=== PATIENT | male | born 1935 | race Hispanic/Latino ===

== ENCOUNTER 2016-08-18 22:06 | Observation (INO) | payer MEDICARE, OTHER ==
[2016-08-18] MEDS ORDERED: Sodium Chloride 0.9% 1,000 ML IV STA (22:43)
[2016-08-18 23:24] LABS: BASO # 0.1 K/uL (0.0-0.2); EOS # 0.1 K/uL (0.0-0.7); EOS % 0.9 % (0.0-4.0); HEMOGLOBIN 9.4 g/dL (12.0-18.0); LYMPH # 1.6 K/uL (1.0-4.3); LYMPH % 17.9 % (20.0-40.0); MEAN CELL VOLUME 77.6 fl (80.0-94.0); MEAN PLATELET VOLUME 9.7 fl (7.2-11.7); MONO # 0.8 K/uL (0.0-0.8); MONO % 8.3 % (0.0-10.0); NEUT # 6.6 K/uL (1.8-7.0); NEUT % 71.9 % (50.0-75.0); RBC 3.91 Mil/uL (4.40-5.90); RED CELL DISTRIBUTION WIDTH 15.6 % (11.5-14.5); WHITE BLOOD COUNT 9.2 K/uL (4.8-10.8)
[2016-08-18 23:43] LABS: INR 1.3 (0.9-1.2); PARTIAL THROMBOPLASTIN TIME 24.8 Seconds (25.6-37.1); PROTHROMBIN TIME 15.2 Seconds (9.8-13.1)
--- NOTE | 2016-08-18 23:49 | ED PDOC ---
HPI: Abdomen Time Seen by Provider: 08/18/16 22:19 Chief Complaint (Nursing): GI Problem Chief Complaint (Provider): GI Problem History Per: Patient History/Exam Limitations: no limitations Onset/Duration Of Symptoms: Hrs (4:00PM) Outside of [place] travel?: No Current Symptoms Are (Timing): Still Present Severity: Moderate Pain Scale Rating Of: 7 Location Of Pain/Discomfort: RLQ Associated Symptoms: Nausea ((+)Mild Nausea), Diarrhea ((+)Watery Diarrhea). denies: Fever, Vomiting Last Bowel Movement: Today Additional Complaint(s): 80 y/o male patient presenting to the ED with abdominal pain. PT states that he has a colonoscopy scheduled with Dr. Nelson and had begun bowel prep today around 1600 and began having loose bowel movements with small amounts of blood present, as well as cramping and mild nausea. PT contacted Dr. Nelson who advised him to come to the ED. PT describes his pain as a 7/10, says its intermittent and states the cramping is worse on the right side. PT denies fever , vomiting, cough, or shortness of breath or chest pain. PT has a past medical history of CABG Surgery, a recent diagnosis of Sigmoid Mass, CAD and HTN. Past Medical History Reviewed: Historical Data, Nursing Documentation, Vital Signs Vital Signs: Last Vital Signs Temp 97.4 F L 08/19/16 00:40 Pulse 68 08/19/16 00:40 Resp 19 08/19/16 00:40 BP 160/73 H 08/19/16 00:40 Pulse Ox 98 08/19/16 01:53 - Medical History PMH: CAD, HTN - Surgical History Surgical History: CABG, Cholecystectomy - Family History Family History: States: No Known Family Hx - Social History Current smoker - smoking cessation education provided: No Alcohol: None Drugs: Denies - Home Medications Home Medications: Ambulatory Orders Medication Instructions Recorded Aspirin [Ecotrin] 81 mg PO DAILY 08/18/16 Meclizine [Antivert] 12.5 mg PO PRN PRN 08/18/16 Metoprolol Tartrate [Lopressor] 50 mg PO BID 08/18/16 Polyethylene Glycol 3350 [Miralax] 17 gm PO DAILY 08/18/16 - Allergies Allergies/Adverse Reactions: Allergies Allergy/AdvReac Type Severity Reaction Status Date / Time No Known Allergies Allergy Verified 08/18/16 22:21 Review of Systems ROS Statement: Except As Marked, All Systems Reviewed And Found Negative Cardiovascular: Negative for: Chest Pain, Palpitations Respiratory: Negative for: Cough, Shortness of Breath Gastrointestinal: Positive for: Nausea ((+)Mild), Abdominal Pain, Diarrhea ((+) Watery Diarrhea), Hematochezia. Negative for: Vomiting Physical Exam - Reviewed Nursing Documentation Reviewed: Yes Vital Signs Reviewed: Yes - Physical Exam Appears: Positive for: Non-toxic, No Acute Distress Skin: Positive for: Normal Color, Warm, Dry Cardiovascular/Chest: Positive for: Regular Rate, Rhythm. Negative for: Murmur Respiratory: Positive for: Normal Breath Sounds. Negative for: Respiratory Distress Gastrointestinal/Abdominal: Positive for: Normal Exam Neurologic/Psych: Positive for: Alert, Oriented. Negative for: Motor/Sensory Deficits - Laboratory Results Result Diagrams: 08/18/16 23:20 08/18/16 23:20 - ECG O2 Sat by Pulse Oximetry: 98 (RA) Pulse Ox Interpretation: Normal Medical Decision Making Medical Decision Making: Time: 2226 Initial impression: Bowel Prep AM Colonoscopy Abdominal pain condition is fair. Initial plan: --CMP --LIPASE --PHYSICIAN CONSULT ROUND --NPO DIET --EKG-ED --ABDOMEN W/CHEST X-RAY --MORPHINE --SODIUM CHLORIDE 1,000ML --ONDANSETRON --HEPLOCK INSERTION --NURSING COMMUNICATION --CALL PHYSICIAN CONSULT --ENEMA --VITAL SIGNS Q6 --ADMIT --PATIENT CONDITION --URINALYSIS Labs reviewed no clincally sig abnrmalities Abd Series with Chest Xray: [id number] Consult: --Case discussed with Dr. Nelson to be admitted for further enema bowel preps; Dr Nelson has made Dr Zamorano aware of admission. Dx Abdominal Pain Fair Scribe Attestation: Documented by Dafne Mojica, acting as a scribe for Santana Stout MD MD Scribe Attestation: All medical record entries made by the Scribe were at my direction and personally dictated by me. I have reviewed the chart and agree that the record accurately reflects my personal performance of the history, physical exam, medical decision making, and the department course for this patient. I have also personally directed, reviewed, and agree with the discharge instructions and disposition. Disposition - Clinical Impression Clinical Impression: Abdominal pain - Patient ED Disposition Is Patient to be Admitted: Yes Discussed With DrLorri: Minesh Nelson Counseled Patient/Family Regarding: Studies Performed, Diagnosis - Disposition Disposition Time: 22:30 Condition: FAIR - Pt Status Changed To: Hospital Disposition Of: Observation
[2016-08-19 00:07] LABS: ALB/GLOB RATIO 1.2 (1.0-2.1); ALBUMIN 4.3 g/dL (3.5-5.0); ALT/SGPT 48 U/L (21-72); AST/SGOT 39 U/L (17-59); BLOOD UREA NITROGEN 15 mg/dl (9-20); CALCIUM 9.4 mg/dL (8.4-10.2); GFR AFRICAN-AMERICAN > 60; GFR NON-AFRICAN AMERICAN > 60; LIPASE 63 U/L (23-300)
[2016-08-19] MEDS ORDERED: Morphine 4 MG/ML VIAL IVP ONE (01:30)
[2016-08-19] MEDS ORDERED: Morphine 4 MG/ML VIAL IVP PRN (07:06)
--- NOTE | 2016-08-19 08:23 | CP.PCM.HP ---
History of Present Illness - History of Present Illness History of Present Illness: 80 y/o w/m admitted with severe abdominal pains possible intestinal obstruction On CT Scan last week pt was found to have a Sigmoid lesion ? CA Colon pt was being prepped for Colonoscopy today when developed the pains / assoc with not passing stools or flatus Dr Nelson recommended admission to finish the colonic prep PMH: Hypertension CABG Aortic Valve replacement Anemia 2* to rectal bleeding COPD CLBBB EKG: CLBBB Present on Admission - Present on Admission Any Indicators Present on Admission: No Review of Systems - Gastrointestinal Gastrointestinal: Abdominal Pain, Change in Bowel Habits, Hematochezia Past Patient History - Past Medical History & Family History Past Medical History?: Yes - Past Social History Smoking Status: Never Smoked Alcohol: None Drugs: Denies - CARDIAC Hx Cardiac Disorders: Yes (Cabg /AVR) Hx Hypertension: Yes - MUSCULOSKELETAL/RHEUMATOLOGICAL Hx Falls: No - PSYCHIATRIC Hx Substance Use: No - SURGICAL HISTORY Hx Cholecystectomy: Yes Hx Coronary Artery Bypass Graft: Yes - ANESTHESIA Hx Anesthesia: Yes Hx Anesthesia Reactions: No Hx Malignant Hyperthermia: No Has any member of the family had a problem w/ anesthesia?: No Meds Allergies/Adverse Reactions: Allergies Allergy/AdvReac Type Severity Reaction Status Date / Time No Known Allergies Allergy Verified 08/18/16 22:21 Results - Vital Signs Recent Vital Signs: Last Vital Signs Temp 97.4 F L 08/19/16 00:40 Pulse 68 08/19/16 00:40 Resp 19 08/19/16 00:40 BP 160/73 H 08/19/16 00:40 Pulse Ox 98 08/19/16 01:53 - Labs Result Diagrams: 08/18/16 23:20 08/18/16 23:20 Labs: Laboratory Results - last 24 hr 08/18/16 08/18/16 08/18/16 22:48 23:20 23:20 WBC 9.2 RBC 3.91 L Hgb 9.4 L Hct 30.4 L MCV 77.6 L MCH 24.0 L MCHC 31.0 L RDW 15.6 H Plt Count 228 MPV 9.7 Neut % (Auto) 71.9 Lymph % (Auto) 17.9 L [place] % (Auto) 8.3 Eos % (Auto) 0.9 Baso % (Auto) 1.0 Neut # 6.6 Lymph # 1.6 [place] # 0.8 Eos # 0.1 Baso # 0.1 PT INR APTT Sodium 139 Potassium 4.0 Chloride 106 Carbon Dioxide 24 Anion Gap 14 BUN 15 Creatinine 0.9 Est GFR ( Amer) > 60 Est GFR (Non-Af Amer) > 60 Random Glucose 117 H Calcium 9.4 Total Bilirubin 1.5 H AST 39 ALT 48 Alkaline Phosphatase 83 Total Protein 7.8 Albumin 4.3 Globulin 3.5 Albumin/Globulin Ratio 1.2 Lipase 63 Blood Type O POSITIVE Antibody Screen Negative BBK History Checked No verified bt 08/18/16 23:20 WBC RBC Hgb Hct MCV MCH MCHC RDW Plt Count MPV Neut % (Auto) Lymph % (Auto) [place] % (Auto) Eos % (Auto) Baso % (Auto) Neut # Lymph # [place] # Eos # Baso # PT 15.2 H INR 1.3 H APTT 24.8 L Sodium Potassium Chloride Carbon Dioxide Anion Gap BUN Creatinine Est GFR ( Amer) Est GFR (Non-Af Amer) Random Glucose Calcium Total Bilirubin AST ALT Alkaline Phosphatase Total Protein Albumin Globulin Albumin/Globulin Ratio Lipase Blood Type Antibody Screen BBK History Checked Assessment & Plan (1) Mass of colon Assessment and Plan: r/o CA Pt will be going for a colonoscopy Status: Acute (2) Hx of CABG Status: Acute (3) S/P AVR (aortic valve replacement) Status: Acute (4) Essential (primary) hypertension Status: Acute (5) Abdominal pain Status: Acute
--- NOTE | 2016-08-19 08:57 | CARD ---
APPROVED REPORT EKG Measurement Heart [id number] <Conclusion> Wide QRS rhythm with occasional premature ventricular complexes Left bundle branch block Abnormal ECG
[2016-08-19] MEDS ORDERED: Lactated Ringer's 500 ML IV ONE (09:26)
[2016-08-19 09:29] VITALS: TEMP 96.3; O2SAT 100
[2016-08-19] MEDS ORDERED: Etomidate 20 mg/10ml Inj IV ONE (10:38)
[2016-08-19] MEDS ORDERED: Propofol 10 mg/ml Inj (20 ML) ONE (10:38)
--- NOTE | 2016-08-19 11:20 | CP.PCM.PN ---
Subjective - Date & Time of Evaluation Date of Evaluation: 08/19/16 Time of Evaluation: 11:19 - Subjective Subjective: A verbal report from Dr. Rollins Is that the patient does have a large mass in the sigmoid colon. This needs to be removed Objective - Vital Signs/Intake and Output Vital Signs (last 24 hours): Temp Pulse Resp BP Pulse Ox 96.3 F L 56 L 18 120/60 100 08/19/16 11:00 08/19/16 11:00 08/19/16 11:00 08/19/16 11:00 08/19/16 11:00 Intake and Output: 08/19/16 08/19/16 06:59 18:59 Intake Total 100 Balance 100 - Medications Medications: Current Medications Metoprolol Tartrate (Lopressor) 50 mg PO BID EMIR Morphine Sulfate (Morphine) 4 mg IVP Q4 PRN PRN Reason: Pain, moderate (4-7) - Labs Labs: 08/18/16 23:20 08/18/16 23:20 PT 15.2 Seconds (9.8-13.1) H 08/18/16 23:20 INR 1.3 (0.9-1.2) H 08/18/16 23:20 APTT 24.8 Seconds (25.6-37.1) L 08/18/16 23:20 Assessment and Plan (1) Mass of colon Status: Acute (2) Hx of CABG Status: Acute (3) S/P AVR (aortic valve replacement) Status: Acute (4) Essential (primary) hypertension Status: Acute (5) Abdominal pain Status: Acute
--- NOTE | 2016-08-19 11:21 | RAD ---
HISTORY: Abdominal pain COMPARISON: 08/02/2016 FINDINGS: The lungs are well inflated and clear. There is linear scarring in the left longer and a small left pleural effusion. The heart is normal in size. Status post median sternotomy. BOWEL: There is paucity of bowel gas and small air-fluid levels in the upper abdomen. There is no evidence of bowel dilatation or obstruction. BONES: Normal. OTHER FINDINGS: Surgical clips in the right upper quadrant are related to prior cholecystectomy. IMPRESSION: Small bowel air-fluid levels in the upper abdomen are nonspecific and could be related to nonspecific enteritis or ileus. No evidence of high-grade bowel obstruction. Small left pleural effusion.
[2016-08-19 11:27] VITALS: BP 125/67; PULSE 62; RESP 15
--- NOTE | 2016-08-19 12:15 | CP.PCM.DIS ---
Provider - Provider Date of Admission: 08/18/16 22:44 Attending physician: Delvin Zamorano MD Primary care physician: Shereen Zamorano Consults: Demarco Rollins Time Spent in preparation of Discharge (in minutes): 50 Diagnosis - Discharge Diagnosis (1) Mass of colon Status: Acute Comment: Colonoscopy done today reveals that the patient has a carcinoma of the sigmoid colon (2) Hx of CABG Status: Acute (3) S/P AVR (aortic valve replacement) Status: Acute (4) Essential (primary) hypertension Status: Acute (5) Abdominal pain Status: Acute Hospital Course - Lab Results Lab Results: Most Recent Lab Values WBC 9.2 K/uL (4.8-10.8) 08/18/16 23:20 RBC 3.91 Mil/uL (4.40-5.90) L 08/18/16 23:20 Hgb 9.4 g/dL (12.0-18.0) L 08/18/16 23:20 Hct 30.4 % (35.0-51.0) L 08/18/16 23:20 MCV 77.6 fl (80.0-94.0) L 08/18/16 23:20 MCH 24.0 pg (27.0-31.0) L 08/18/16 23:20 MCHC 31.0 g/dL (33.0-37.0) L 08/18/16 23:20 RDW 15.6 % (11.5-14.5) H 08/18/16 23:20 Plt Count 228 K/uL (130-400) 08/18/16 23:20 MPV 9.7 fl (7.2-11.7) 08/18/16 23:20 Neut % (Auto) 71.9 % (50.0-75.0) 08/18/16 23:20 Lymph % (Auto) 17.9 % (20.0-40.0) L 08/18/16 23:20 [place] % (Auto) 8.3 % (0.0-10.0) 08/18/16 23:20 Eos % (Auto) 0.9 % (0.0-4.0) 08/18/16 23:20 Baso % (Auto) 1.0 % (0.0-2.0) 08/18/16 23:20 Neut # 6.6 K/uL (1.8-7.0) 08/18/16 23:20 Lymph # 1.6 K/uL (1.0-4.3) 08/18/16 23:20 [place] # 0.8 K/uL (0.0-0.8) 08/18/16 23:20 Eos # 0.1 K/uL (0.0-0.7) 08/18/16 23:20 Baso # 0.1 K/uL (0.0-0.2) 08/18/16 23:20 PT 15.2 Seconds (9.8-13.1) H 08/18/16 23:20 INR 1.3 (0.9-1.2) H 08/18/16 23:20 APTT 24.8 Seconds (25.6-37.1) L 08/18/16 23:20 Sodium 139 mmol/l (132-148) 08/18/16 23:20 Potassium 4.0 MMOL/L (3.6-5.0) 08/18/16 23:20 Chloride 106 mmol/L (98-107) 08/18/16 23:20 Carbon Dioxide 24 mmol/L (22-30) 08/18/16 23:20 Anion Gap 14 (10-20) 08/18/16 23:20 BUN 15 mg/dl (9-20) 08/18/16 23:20 Creatinine 0.9 mg/dL (0.8-1.5) 08/18/16 23:20 Est GFR ( Amer) > 60 08/18/16 23:20 Est GFR (Non-Af Amer) > 60 08/18/16 23:20 Random Glucose 117 mg/dL (75-110) H 08/18/16 23:20 Calcium 9.4 mg/dL (8.4-10.2) 08/18/16 23:20 Total Bilirubin 1.5 mg/dl (0.2-1.3) H 08/18/16 23:20 AST 39 U/L (17-59) 08/18/16 23:20 ALT 48 U/L (21-72) 08/18/16 23:20 Alkaline Phosphatase 83 U/L (38-126) 08/18/16 23:20 Total Protein 7.8 G/DL (6.3-8.2) 08/18/16 23:20 Albumin 4.3 g/dL (3.5-5.0) 08/18/16 23:20 Globulin 3.5 gm/dL (2.2-3.9) 08/18/16 23:20 Albumin/Globulin Ratio 1.2 (1.0-2.1) 08/18/16 23:20 Lipase 63 U/L (23-300) 08/18/16 23:20 Blood Type O POSITIVE 08/18/16 22:48 Antibody Screen Negative 08/18/16 22:48 BBK History Checked No verified bt 08/18/16 22:48 - Hospital Course Hospital Course: This is a patient on CAT scan was found to have a lesion in the sigmoid colon. He had been having bloody stools for months. His hemoglobin had dropped several points Gross of this he was said he was scheduled for a colonoscopy today Monday Yesterday upon doing the prep the patient had severe abdominal pains and was not having a bowel movement because of the fear of obstruction the patient was admitted to finish the prep for colonoscopy today The patient did have endoscopy today and it revealed a large sigmoid mass that is cancerous He is being discharged today to follow up with me and with Dr. Josef Moran to set a date for surgery - Date & Time of H&P Date of H&P: 08/19/16 Time of H&P: 12:13 Discharge Plan - Follow Up Plan Condition: GOOD Instructions: Colonoscopy (DC), Acute Abdominal Pain (DC) Referrals: Minesh Nelson MD, PhD [Staff Provider] -
--- NOTE | 2016-08-20 03:28 | CON ---
REASON FOR CONSULTATION: Rectal bleeding and abdominal pain. HISTORY OF PRESENT ILLNESS: This is an 80-year-old man who was scheduled to have a colonoscopy for a fat mass on CT, was being prepped last night and had abdominal distention and discomfort. No passage of flatus or bowel movements and admitted to the hospital for abdominal pain workup and rule out perforation. The patient actually seemed better, had some bowel movements overnight, still distended and tender, but not tense. Currently, lying in bed, in no apparent distress. PAST MEDICAL HISTORY: Includes hypertension, CABG, aortic valve replacement, and anemia. PAST SURGICAL HISTORY: Noncontributory. FAMILY HISTORY: Noncontributory. REVIEW OF SYSTEMS: All systems have been reviewed and no other positive except in the HPI. PHYSICAL EXAMINATION GENERAL: A pleasant, elderly appearing man, lying in bed comfortably, in no apparent distress. VITAL SIGNS: During the hospital grossly unremarkable. HEENT: Head, normocephalic, atraumatic. Eyes, pupils are equal and reactive to light. No conjunctival pallor or icterus. NECK: Supple. Normal range of motion. No lymphadenopathy appreciated. LUNGS: Coarse breath sounds bilaterally. HEART: S1, S2, regular rate and rhythm. No *------*. ABDOMEN: Soft, nontender, some discomfort. No rebound, no guarding. RECTAL: Deferred. EXTREMITIES: Shows *------* x3. LABORATORY DATA: Reviewed. WBC 9.3, hemoglobin 9.4, hematocrit of 38.4. INR 1.3. X-rays are grossly unremarkable. ASSESSMENT AND PLAN: This is an 80-year-old man with a mass in the sigmoid. Plan for colonoscopy in the morning. Thank you for the consult. Minesh Nelson MD/ PhD cc: *------*
== END 2016-08-19 13:21 | disposition home or self-care (01) ==
LOC: H.ER 22:06 → H.ERHOLD 22:44 → H.MEDSURG1 08-19 00:41
PROVIDERS: ADMIT Internal Medicine Cardiovascular Disease; ATTEND Internal Medicine Cardiovascular Disease
DX: C18.7 Malignant neoplasm of sigmoid colon (principal); K63.5 Polyp of colon; I10 Essential (primary) hypertension; I25.10 Atherosclerotic heart disease of native coronary artery without angina pectoris; Z95.1 Presence of aortocoronary bypass graft; Z95.2 Presence of prosthetic heart valve; J44.9 Chronic obstructive pulmonary disease, unspecified; K62.5 Hemorrhage of anus and rectum; K64.8 Other hemorrhoids; K64.4 Residual hemorrhoidal skin tags
CPT/HCPCS: 45331; 74022; 80053; 83690; 85025; 85610; 85730; 86850; 86900; 88305; 93005; 96374; 99285; G0378; J2001; J2270; J2405; J2704; J7040; J7120

== ENCOUNTER 2016-08-23 15:33 | Inpatient (IN) | payer MEDICARE, OTHER ==
[2016-08-23] MEDS ORDERED: Sodium Chloride 0.9% 1,000 ML IV STA (16:02)
--- NOTE | 2016-08-23 16:05 | ED PDOC ---
HPI: Abdomen Time Seen by Provider: 08/23/16 15:55 Chief Complaint (Nursing): Abdominal Pain Chief Complaint (Provider): Abd pain History Per: Patient History/Exam Limitations: no limitations Onset/Duration Of Symptoms: Days (Yester) Additional Complaint(s): Abd pain across lower. Dx with mass on colon recently. Here as pain still present, but comfortable in bed. No nausea, vomit, diarrhea, weakness, headaches. Had small bm today. No fever. Seen by surgeon and sent to the ED. Past Medical History Reviewed: Nursing Documentation, Vital Signs Vital Signs: Last Vital Signs Temp 98.0 F 08/23/16 15:42 Pulse 52 L 08/23/16 15:42 Resp 18 08/23/16 15:42 BP 124/61 08/23/16 15:42 Pulse Ox 99 08/23/16 16:46 - Medical History PMH: CAD, HTN Other PMH: colon ca - Surgical History Surgical History: CABG, Cholecystectomy - Family History Family History: States: Unknown Family Hx - Living Arrangements Living Arrangements: With Family - Social History Alcohol: None Drugs: Denies - Home Medications Home Medications: Ambulatory Orders Medication Instructions Recorded Aspirin [Ecotrin] 81 mg PO DAILY 08/18/16 Meclizine [Antivert] 12.5 mg PO Q8H PRN 08/18/16 Metoprolol Tartrate [Lopressor] 50 mg PO BID 08/18/16 Polyethylene Glycol 3350 [Miralax] 17 gm PO DAILY 08/18/16 - Allergies Allergies/Adverse Reactions: Allergies Allergy/AdvReac Type Severity Reaction Status Date / Time No Known Allergies Allergy Verified 08/18/16 22:21 Review of Systems ROS Statement: Except As Marked, All Systems Reviewed And Found Negative Gastrointestinal: Positive for: Abdominal Pain Physical Exam - Reviewed Nursing Documentation Reviewed: Yes Vital Signs Reviewed: Yes - Physical Exam Appears: Positive for: Non-toxic, No Acute Distress Head Exam: Positive for: ATRAUMATIC, NORMAL INSPECTION, NORMOCEPHALIC Skin: Positive for: Normal Color, Warm, DRY Eye Exam: Positive for: EOMI, Normal appearance, PERRL ENT: Positive for: Normal ENT Inspection Neck: Positive for: Normal, Painless ROM Cardiovascular/Chest: Positive for: Regular Rate, Rhythm Respiratory: Positive for: CNT, Normal Breath Sounds Gastrointestinal/Abdominal: Positive for: Bowel Sounds, Soft, Tenderness (mild across lower) Back: Positive for: Normal Inspection. Negative for: L CVA Tenderness, R CVA Tenderness Extremity: Positive for: Normal ROM. Negative for: Tenderness, Pedal Edema Neurologic/Psych: Positive for: Alert, Oriented - Laboratory Results Result Diagrams: 08/23/16 16:10 - ECG ECG: Positive for: Interpreted By Me, Viewed By Me ECG Rhythm: Positive for: Left Bundle Branch Block Interpretation Of Abn EKG: same as old O2 Sat by Pulse Oximetry: 99 Pulse Ox Interpretation: Normal - Progress ED Course And Treament: 1650: Stable. AAOx3. Pain free. Dr. Arcos spoken to and will admit. Will give further orders when pt. reaches floor. Disposition - Clinical Impression Clinical Impression: Abdominal pain, Colonic mass - Patient ED Disposition Is Patient to be Admitted: Yes Counseled Patient/Family Regarding: Studies Performed, Diagnosis - Disposition Disposition Time: 16:48 Condition: FAIR - Pt Status Changed To: Hospital Disposition Of: Inpatient - Admit Certification Admit to Inpatient:: After my assessment, the patient will require hospitalization for at least two midnights. This is because of the severity of symptoms shown, intensity of services needed, and/or the medical risk in this patient being treated as an outpatient. - POA Present On Arrival: None
[2016-08-23 16:38] LABS: BASO % 0.8 % (0.0-2.0); EOS % 0.7 % (0.0-4.0); HEMOGLOBIN 8.9 g/dL (12.0-18.0); LYMPH # 1.8 K/uL (1.0-4.3); LYMPH % 27.5 % (20.0-40.0); MEAN CORPUSCULAR HEMOGLOBIN 23.7 pg (27.0-31.0); MEAN CORPUSCULAR HGB CONC 31.2 g/dL (33.0-37.0); MEAN PLATELET VOLUME 9.8 fl (7.2-11.7); MONO # 0.6 K/uL (0.0-0.8); MONO % 9.7 % (0.0-10.0); NEUT % 61.3 % (50.0-75.0); NRBC % 0.1 % (0.0-0.0); RBC 3.75 Mil/uL (4.40-5.90); RED CELL DISTRIBUTION WIDTH 16.1 % (11.5-14.5); WHITE BLOOD COUNT 6.5 K/uL (4.8-10.8)
[2016-08-23 16:53] LABS: ALB/GLOB RATIO 1.2 (1.0-2.1); ALBUMIN 4.1 g/dL (3.5-5.0); ALT/SGPT 42 U/L (21-72); AST/SGOT 38 U/L (17-59); BLOOD UREA NITROGEN 15 mg/dl (9-20); CALCIUM 9.4 mg/dL (8.4-10.2); GFR AFRICAN-AMERICAN > 60; GFR NON-AFRICAN AMERICAN > 60
[2016-08-23 17:02] LABS: INR 1.3 (0.9-1.2); PROTHROMBIN TIME 15.2 Seconds (9.8-13.1)
--- NOTE | 2016-08-23 17:20 | RAD ---
HISTORY: Abdominal pain COMPARISON: 08/18/2016. FINDINGS: LUNGS: There is linear scarring in the left lower lobe. No focal consolidation. PLEURA: Left pleural thickening. No significant right pleural effusion identified, no pneumothorax apparent. CARDIOVASCULAR: There is mild cardiomegaly. Status post CABG. OSSEOUS STRUCTURES: No significant abnormalities. VISUALIZED UPPER ABDOMEN: Normal. OTHER FINDINGS: None. IMPRESSION: Left basilar scarring and left pleural thickening. No acute findings.
[2016-08-23] MEDS ORDERED: Dextrose 5%/0.45% NS 1,000 ML IV SCH (21:30)
--- NOTE | 2016-08-23 21:39 | CP.PCM.HP ---
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 Anemia 2* to rectal bleeding COPD CLBBB Laminectomy L5 04/06/06 Present on Admission - Present on Admission Any Indicators Present on Admission: No Review of Systems - Constitutional Constitutional: As Per HPI - Cardiovascular Cardiovascular: As Per HPI - Respiratory Respiratory: As Per HPI - Gastrointestinal Gastrointestinal: Abdominal Pain, Hematochezia Past Patient History - Past Medical History & Family History Past Medical History?: Yes - Past Social History Smoking Status: Never Smoked Alcohol: None Drugs: Denies - CARDIAC Hx Cardiac Disorders: Yes Hx Hypertension: Yes Other/Comment: CABG w/ AVR - PULMONARY Hx Chronic Obstructive Pulmonary Disease (COPD): Yes - MUSCULOSKELETAL/RHEUMATOLOGICAL Hx Falls: No - PSYCHIATRIC Hx Substance Use: No - SURGICAL HISTORY Hx Cholecystectomy: Yes Hx Coronary Artery Bypass Graft: Yes - ANESTHESIA Hx Anesthesia: Yes Hx Anesthesia Reactions: No Hx Malignant Hyperthermia: No Meds Allergies/Adverse Reactions: Allergies Allergy/AdvReac Type Severity Reaction Status Date / Time No Known Allergies Allergy Verified 08/18/16 22:21 Physical Exam - Constitutional Appears: Well - Head Exam Head Exam: NORMAL INSPECTION - Eye Exam Eye Exam: Normal appearance - ENT Exam ENT Exam: Normal Exam - Neck Exam Neck exam: Positive for: Normal Inspection - Respiratory Exam Respiratory Exam: NORMAL BREATHING PATTERN - Cardiovascular Exam Cardiovascular Exam: REGULAR RHYTHM - GI/Abdominal Exam GI & Abdominal Exam: Normal Bowel Sounds Results - Vital Signs Recent Vital Signs: Last Vital Signs Temp 97.8 F 08/23/16 20:38 Pulse 65 08/23/16 20:38 Resp 18 08/23/16 20:38 BP 133/67 08/23/16 20:38 Pulse Ox 100 08/23/16 20:38 - Labs Result Diagrams: 08/23/16 16:10 08/23/16 16:10 Labs: Laboratory Results - last 24 hr 08/23/16 17:30 Troponin I [id number] Assessment & Plan (1) Carcinoma of sigmoid colon Assessment and Plan: The patient is scheduled for surgery in the AM Cardiac camacho he is cleared for surgery Status: Acute (2) Essential (primary) hypertension Status: Acute (3) Hx of CABG Assessment and Plan: 07/23/2009 Status: Acute (4) S/P AVR (aortic valve replacement) 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
--- NOTE | 2016-08-23 23:04 | CP.PCM.CON ---
History of Present Illness - History of Present Illness History of Present Illness: Surgery Consult note. Dr. Moran CC: Abd Pain 80yo M with PMHx of HTN, Anemia, COPD here for evaluation of abdominal pain. Patient states that he was evaluated recently for similar complaints. Pain is located in the left lower abdomen and radiates to the right lower abdomen. Describes pain as sharp in quality. Denies any association with food intake. He states that he has had bloody bowel movements for about 4 months and these have since resolved for the past week. He states that over the course of the past month, he has noted changes in the caliber of his stool, he describes his stool as small pieces, rope-like in appearance, denies any bloody or dark BMs for the past week. Denies any Fevers or chills. Does state that he has had a 5lb weight loss over the past month and decreased appetite. No N/V/D. No headaches. No CP/ SOB. Also c/o difficulty urinating. Patient had a CT scan on 08/12 which showed 5cm mural thickening and luminal narrowing at the sigmoid colon. Of note, Dr. Nelson performed a colonoscopy on 08/19 which showed a 5cm partially obstructing mass in the sigmoid colon, biopsies were taken (High grade dysplasia on pathology). 5mm polyp was also seen and resected at the recto -sigmoid region (serrated adenoma on pathology). Scope was unable to be passed past the sigmoid mass. PMHx: HTN, Anemia, COPD PSHx: CABG 2009, Aortic Valve Replacement 2009, Cholecystectomy 1983, L5 Laminectomy 2006 Social Hx: Denies Tob, Denies ETOH, Denies illicit drugs NKDA Review of Systems - Review of Systems All systems: reviewed and no additional remarkable complaints except - Constitutional Constitutional: Weight Loss. absent: Chills, Fever - EENT Ears: absent: Dizziness - Cardiovascular Cardiovascular: absent: Chest Pain, Dyspnea - Respiratory Respiratory: absent: Dyspnea - Gastrointestinal Gastrointestinal: Abdominal Pain, Change in Bowel Habits, Change in Stool Character. absent: Diarrhea, Hematemesis, Hematochezia, Melena, Nausea, Vomiting - Genitourinary Genitourinary: Difficulty Urinating. absent: Dysuria - Musculoskeletal Musculoskeletal: absent: Back Pain - Neurological Neurological: absent: Dizziness, Focal Weakness Past Patient History - Past Medical History & Family History Past Medical History?: Yes Past Family History: Reviewed and not pertinent - Past Social History Smoking Status: Never Smoked Alcohol: None Drugs: Denies - CARDIAC Hx Cardiac Disorders: Yes Hx Hypertension: Yes Other/Comment: CABG w/ AVR - PULMONARY Hx Chronic Obstructive Pulmonary Disease (COPD): Yes - MUSCULOSKELETAL/RHEUMATOLOGICAL Hx Falls: No - PSYCHIATRIC Hx Substance Use: No - SURGICAL HISTORY Hx Cholecystectomy: Yes Hx Coronary Artery Bypass Graft: Yes - ANESTHESIA Hx Anesthesia: Yes Hx Anesthesia Reactions: No Hx Malignant Hyperthermia: No Meds Allergies/Adverse Reactions: Allergies Allergy/AdvReac Type Severity Reaction Status Date / Time No Known Allergies Allergy Verified 08/18/16 22:21 - Medications Medications: Current Medications Dextrose/Sodium Chloride (Dextrose 5%/0.45% Ns 1000 Ml) 1,000 mls @ 40 mls/hr IV .Q24H [facility] Stop: 08/24/16 21:24 Metoprolol Tartrate (Lopressor) 50 mg PO BID [facility] Morphine Sulfate (Morphine) 4 mg IVP Q4 PRN PRN Reason: Pain, severe (8-10) Physical Exam - Constitutional Appears: Well, No Acute Distress - Head Exam Head Exam: ATRAUMATIC, NORMAL INSPECTION, NORMOCEPHALIC - Eye Exam Eye Exam: EOMI - ENT Exam ENT Exam: Mucous Membranes Moist - Respiratory Exam Respiratory Exam: NORMAL BREATHING PATTERN - Cardiovascular Exam Cardiovascular Exam: absent: JVD - GI/Abdominal Exam GI & Abdominal Exam: Hernia (Reducible umbilical hernia present, non-tender), Soft. absent: Distended, Firm, Guarding, Rebound, Rigid Additional comments: Tender to deep palpation at the left lower quadrant. Non distended. no guarding. Reducible umbilical hernia present. - Extremities Exam Extremities exam: Positive for: normal inspection. Negative for: calf tenderness, pedal edema - Back Exam Back exam: NORMAL INSPECTION - Neurological Exam Neurological exam: Alert, Oriented x3 - Psychiatric Exam Psychiatric exam: Normal Affect, Normal Mood - Skin Skin Exam: Dry, Intact, Normal Color, Warm Results - Vital Signs Recent Vital Signs: Last Vital Signs Temp 97.8 F 08/23/16 20:38 Pulse 65 08/23/16 20:38 Resp 18 08/23/16 20:38 BP 133/67 08/23/16 20:38 Pulse Ox 100 08/23/16 20:38 - Labs Result Diagrams: 08/23/16 16:10 08/23/16 16:10 Labs: Laboratory Results - last 24 hr 08/23/16 17:30 Troponin I 0.0160 Assessment & Plan - Assessment and Plan (Free Text) Assessment: 80yo M with PMHx of HTN, Anemia, COPD here with sigmoid mass - To OR on Monday, 08/24 - Consent obtained on chart - NPO past midnight - Continue pain management - f/u AM labs Further recs as per Dr. Dean Bullard PGY1
[2016-08-24] MEDS ORDERED: Propofol 10 mg/ml Inj (20 ML) ONE (07:27)
[2016-08-24] MEDS ORDERED: ePHEDrine 50 mg/ml Inj ONE ×2 (07:28→09:05)
[2016-08-24] MEDS ORDERED: Succinylcholine 200 mg/10 ml Inj IV ONE (07:28)
[2016-08-24] MEDS ORDERED: Rocuronium 10 mg/ml (5 ml) ONE ×2 (07:28→10:07)
[2016-08-24] MEDS ORDERED: Midazolam 2 MG/2 ML VIAL ONE (07:28)
[2016-08-24] MEDS ORDERED: Bupivacaine 0.5% Inj(30mL) ONE (07:35)
[2016-08-24] MEDS ORDERED: metroNIDAZOLE 500mg/100ml NS 100 ML IVPB ONE (07:35)
[2016-08-24 07:37] LABS: BASO % 0.8 % (0.0-2.0); EOS # 0.1 K/uL (0.0-0.7); EOS % 1.5 % (0.0-4.0); HEMOGLOBIN 8.4 g/dL (12.0-18.0); LYMPH # 1.7 K/uL (1.0-4.3); LYMPH % 29.8 % (20.0-40.0); MEAN CELL VOLUME 76.1 fl (80.0-94.0); MEAN CORPUSCULAR HEMOGLOBIN 24.2 pg (27.0-31.0); MEAN CORPUSCULAR HGB CONC 31.8 g/dL (33.0-37.0); MEAN PLATELET VOLUME 9.9 fl (7.2-11.7); MONO # 0.6 K/uL (0.0-0.8); MONO % 11.3 % (0.0-10.0); NEUT # 3.2 K/uL (1.8-7.0); NEUT % 56.6 % (50.0-75.0); RBC 3.49 Mil/uL (4.40-5.90); RED CELL DISTRIBUTION WIDTH 15.7 % (11.5-14.5); WHITE BLOOD COUNT 5.7 K/uL (4.8-10.8)
[2016-08-24 07:46] LABS: ALB/GLOB RATIO 1.2 (1.0-2.1); ALBUMIN 3.6 g/dL (3.5-5.0); ALT/SGPT 43 U/L (21-72); AST/SGOT 32 U/L (17-59); BLOOD UREA NITROGEN 11 mg/dl (9-20); CALCIUM 9.1 mg/dL (8.4-10.2); GFR AFRICAN-AMERICAN > 60; GFR NON-AFRICAN AMERICAN > 60
--- NOTE | 2016-08-24 08:16 | PQF ANEMIA ---
This form is a permanent part of the medical record 08/24/16 Dr. Zamorano, Please clarify the type of anemia. Admitted with obstructing lesion at sigmoid colon. Patient has had months of rectal bleeding. Hgb dropped from 14 to 9. H&H on admission: 8.9 and 28.5 Clarification of your documentation is requested to better reflect the severity of illness and intensity of treatment of your patient. Indicators present [x] Anemia [x] Drop in H&H from []___ to []___ [] Hypotension [x] GI Bleed [] Transfusion(s) [] Acute bleed other sites [] Tachycardia [] Surgical Procedure Blood Loss (expected not a complication) Other:[] Location in the medical record that reflects the above clinical findings: [] Treatment Provided: [] PHYSICIAN'S RESPONSE Based on your medical judgment of the clinical indicators outlined above, are you treating this patient for a known or suspected: [x Acute blood loss anemia [] Chronic blood loss anemia [] Acute on Chronic blood loss anemia [] Anemia due to malignancy [] Anemia due to chemotherapy or radiation therapy [] Anemia of Chronic Disease, please specify: [] [] Other, please indicate type of anemia []____ [] If Unable to Determine, please check the box, sign and date. Present On Admission (POA) Indicator: [x] Present at the time of admission [] Not present at the time of admission [] Clinically Undetermined In responding to this query, please exercise your independent professional judgment. The fact that a question is asked does not imply that any particular answer is desired or expected. Thank you for your clarification on this documentation. If you have any questions please call:ext [phone] * Thank you, Shahida Jimenez RN CDMP [facility]
[2016-08-24] MEDS ORDERED: Etomidate 20 mg/10ml Inj IV ONE (08:39)
[2016-08-24] MEDS ORDERED: Lactated Ringer's 1,000 ML IV ONE ×2 (08:40→10:46)
[2016-08-24] MEDS ORDERED: metroNIDAZOLE 500mg/100ml NS IVPB ONE (08:50)
[2016-08-24] MEDS ORDERED: Methylene Blue 10 mg/ml (1ml) Inj IV ONE (09:25)
[2016-08-24] MEDS ORDERED: Dexamethasone 4 mg/1 ml ONE (09:44)
[2016-08-24] MEDS ORDERED: Neostigmine Methylsulfate 3mg/3ml Syringe IV ONE (10:38)
[2016-08-24] MEDS ORDERED: Liquid Adhesive TOP ONE (10:49)
--- NOTE | 2016-08-24 11:02 | CP.PCM.PN ---
Subjective - Date & Time of Evaluation Date of Evaluation: 08/24/16 Time of Evaluation: 11:00 - Subjective Subjective: s/p laparotomy with resection of sigmoid colon transverse colostomy doing well Objective - Vital Signs/Intake and Output Vital Signs (last 24 hours): Temp Pulse Resp BP Pulse Ox 97.8 F 50 L 20 164/73 H 98 08/24/16 08:10 08/24/16 08:17 08/24/16 08:10 08/24/16 08:17 08/24/16 08:10 Intake and Output: 08/24/16 08/24/16 06:59 18:59 Intake Total 1425 Output Total 275 Balance 1150 - Medications Medications: Current Medications Dextrose/Sodium Chloride (Dextrose 5%/0.45% Ns 1000 Ml) 1,000 mls @ 40 mls/hr IV .Q24H [facility] Stop: 08/24/16 21:24 Last Admin: 08/24/16 00:46 Dose: 40 mls/hr Metoprolol Tartrate (Lopressor) 50 mg PO BID [facility] Last Admin: 08/24/16 08:17 Dose: Not Given Morphine Sulfate (Morphine) 4 mg IVP Q4 PRN PRN Reason: Pain, severe (8-10) - Labs Labs: 08/24/16 05:45 08/24/16 05:45 PT 15.2 Seconds (9.8-13.1) H 08/23/16 16:10 INR 1.3 (0.9-1.2) H 08/23/16 16:10 APTT 24.0 Seconds (25.6-37.1) L 08/23/16 16:10 Assessment and Plan (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
--- NOTE | 2016-08-24 11:03 | PCM.SURG1 ---
Surgeon's Initial Post Op Note - Surgeon's Notes Surgeon: Franca Associate Account Manager: angelica gómez zemaitis Anesthesia Administered By: ashlyn Pre-Operative Diagnosis: colonic obstruction Operative Findings: distal sigmoid mass Post-Operative Diagnosis: pending path Operation Performed: distal sigmoid resection transverse colostomy Specimen/Specimens Removed: sigmoid Estimated Blood Loss: EBL {In ML}: 200 Blood Products Given: PRBC (1unit) Drains Used: No Drains Post-Op Condition: Good Date of Surgery/Procedure: 08/24/16 Time of Surgery/Procedure: 09:00
[2016-08-24] MEDS ORDERED: Dextrose 5%/0.45% NS 1,000 ML IV SCH (11:09)
[2016-08-24] MEDS ORDERED: Naloxone 0.4 mg/ml Inj (Adult) IVP PRN (11:33)
[2016-08-24] MEDS ORDERED: DiphenhydrAMINE 50 mg/ml Inj IVP PRN (11:33)
[2016-08-24] MEDS ORDERED: Sodium Chloride 0.9% 250 ML IV ONE (11:58)
--- NOTE | 2016-08-24 12:40 | CARD ---
APPROVED REPORT EKG Measurement Heart [id number] <Conclusion> Sinus bradycardia with occasional premature ventricular complexes Left bundle branch block Abnormal ECG
[2016-08-24] MEDS: HYDROmorphone 0.5 mg/0.5 ml ISec IVP PRN ×2 (14:25→14:35)
[2016-08-24] MEDS: metroNIDAZOLE 500mg/100ml NS 100 ML IVPB SCH (16:54)
[2016-08-24 19:28] LABS: BASO # 0.1 K/uL (0.0-0.2); BASO % 0.7 % (0.0-2.0); EOS # 0.2 K/uL (0.0-0.7); HEMOGLOBIN 11.1 g/dL (12.0-18.0); LYMPH # 0.8 K/uL (1.0-4.3); LYMPH % 4.3 % (20.0-40.0); MEAN CELL VOLUME 78.3 fl (80.0-94.0); MEAN CORPUSCULAR HEMOGLOBIN 24.9 pg (27.0-31.0); MEAN CORPUSCULAR HGB CONC 31.8 g/dL (33.0-37.0); MEAN PLATELET VOLUME 10.5 fl (7.2-11.7); MONO # 0.7 K/uL (0.0-0.8); MONO % 3.8 % (0.0-10.0); NEUT # 16.8 K/uL (1.8-7.0); NEUT % 90.2 % (50.0-75.0); NRBC % 0.3 % (0.0-0.0); PLATELET COUNT 215 K/uL (130-400); RBC 4.48 Mil/uL (4.40-5.90); RED CELL DISTRIBUTION WIDTH 16.6 % (11.5-14.5); WHITE BLOOD COUNT 18.6 K/uL (4.8-10.8)
[2016-08-24] MEDS: Lactated Ringer's 1,000 ML IV SCH (20:44)
[2016-08-24] MEDS: ceFAZolin 1 GM in Sodium Chloride 0.9% 100 ML IVPB SCH (21:21)
[2016-08-24 21:51] LABS: BANDS 2 % (0-2); EOSINOPHIL 1 % (0-7); LYMPHOCYTE 6 % (20-50); MONOCYTE 4 % (0-10); NEUTROPHIL 87 % (42-75); PLATELET ESTIMATE NORMAL (NORMAL); TOTAL CELLS COUNTED 100
[2016-08-24 21:52] LABS: ANISOCYTOSIS SLIGHT; HYPOCHROMIC SLIGHT
[2016-08-25] MEDS: metroNIDAZOLE 500mg/100ml NS 100 ML IVPB SCH ×2 (01:45→08:50)
[2016-08-25] MEDS: Lactated Ringer's 1,000 ML IV SCH ×2 (01:49→17:17)
[2016-08-25 07:35] LABS: BASO % 0.2 % (0.0-2.0); HEMOGLOBIN 10.8 g/dL (12.0-18.0); LYMPH # 1.5 K/uL (1.0-4.3); MEAN CELL VOLUME 78.5 fl (80.0-94.0); MEAN CORPUSCULAR HEMOGLOBIN 24.7 pg (27.0-31.0); MEAN CORPUSCULAR HGB CONC 31.5 g/dL (33.0-37.0); MEAN PLATELET VOLUME 10.2 fl (7.2-11.7); MONO # 1.2 K/uL (0.0-0.8); MONO % 7.2 % (0.0-10.0); NEUT % 83.6 % (50.0-75.0); RBC 4.37 Mil/uL (4.40-5.90); RED CELL DISTRIBUTION WIDTH 16.2 % (11.5-14.5); WHITE BLOOD COUNT 16.7 K/uL (4.8-10.8)
[2016-08-25 07:42] LABS: ALB/GLOB RATIO 1.3 (1.0-2.1); ALBUMIN 3.6 g/dL (3.5-5.0); ALT/SGPT 39 U/L (21-72); AST/SGOT 26 U/L (17-59); BLOOD UREA NITROGEN 12 mg/dl (9-20); CALCIUM 8.9 mg/dL (8.4-10.2); GFR AFRICAN-AMERICAN > 60; GFR NON-AFRICAN AMERICAN > 60
[2016-08-25] MEDS: ceFAZolin 1 GM in Sodium Chloride 0.9% 100 ML IVPB SCH (08:48)
--- NOTE | 2016-08-25 10:21 | CP.PCM.PN ---
<Jayda Krishna - Last Filed: 08/25/16 10:19> Subjective - Date & Time of Evaluation Date of Evaluation: 08/25/16 Time of Evaluation: 08:00 - Subjective Subjective: GENERAL SURGERY PROGRESS NOTE FOR DR. ABBOTT Patient seen and examined at bedside. 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 He denies nausea, vomiting, fever, or chills. He is using the IS. He has not ambulated yet since surgery. Kumar to be removed this AM. Objective - Vital Signs/Intake and Output Vital Signs (last 24 hours): Temp Pulse Resp BP Pulse Ox 98.5 F 65 20 166/76 H 96 08/25/16 08:12 08/25/16 08:52 08/25/16 08:12 08/25/16 08:52 08/25/16 08:12 - Medications Medications: Current Medications Diphenhydramine HCl (Benadryl) 25 mg IVP Q6 PRN PRN Reason: Itching / Pruritus Hydromorphone HCl (Dilaudid) 0.5 mg IVP Q10M PRN PRN Reason: Pain, moderate (4-7) Last Admin: 08/24/16 14:35 Dose: 0.5 mg Hydromorphone HCl (Dilaudid 0.2 Mg/Ml Photolith Operator) 0 mg IV PRN PRN; Protocol PRN Reason: Pain, moderate (4-7) Lactated Ringer's (Lactated Ringer's) 1,000 mls @ 125 mls/hr IV .Q8H [facility] Last Admin: 08/25/16 01:49 Dose: 125 mls/hr Metoprolol Tartrate (Lopressor) 50 mg PO BID [facility] Last Admin: 08/25/16 08:52 Dose: 50 mg Morphine Sulfate (Morphine) 4 mg IVP Q4 PRN PRN Reason: Pain, severe (8-10) Naloxone HCl (Narcan) 0.1 mg IVP Q2M PRN PRN Reason: Opiate reversal Ondansetron HCl (Zofran Inj) 4 mg IVP Q8 PRN PRN Reason: Nausea/Vomiting Pantoprazole Sodium (Protonix Inj) 40 mg IVP DAILY [facility] Last Admin: 08/25/16 08:53 Dose: 40 mg - Labs Labs: 08/25/16 05:40 08/25/16 05:40 PT 15.2 Seconds (9.8-13.1) H 08/23/16 16:10 INR 1.3 (0.9-1.2) H 08/23/16 16:10 APTT 24.0 Seconds (25.6-37.1) L 08/23/16 16:10 - Constitutional Appears: Well, Non-toxic, No Acute Distress - Head Exam Head Exam: ATRAUMATIC, NORMAL INSPECTION - Eye Exam Eye Exam: EOMI, Normal appearance - Respiratory Exam Respiratory Exam: NORMAL BREATHING PATTERN. absent: Respiratory Distress - Cardiovascular Exam Cardiovascular Exam: +S1, +S2 - GI/Abdominal Exam GI & Abdominal Exam: Soft, Tenderness (tender around incision site). absent: Distended, Firm, Guarding, Rigid, Rebound Additional comments: Colostomy bag with bowel sweat Dressing clean/dry/intact - Exam Exam: NORMAL INSPECTION (Kumar in place) - Neurological Exam Neurological Exam: Alert, Awake, Oriented x3 - Psychiatric Exam Psychiatric exam: Normal Affect, Normal Mood - Skin Skin Exam: Dry, Normal Color, Warm Assessment and Plan - Assessment and Plan (Free Text) Assessment: 80yo M with distal sigmoid mass causing obstruction now s/p distal sigmoid resection with transverse colostomy POD#1 - Afebrile, VSS - WBC 16.7 - Hgb 10.8 after 2 units PRBC yesterday - T bili 1.6, will repeat tomorrow - Kumar had 700cc overnight, will remove this AM - Void trial - Encouraged OOB to chair and ambulation - Encouraged IS use - Will keep LICENSE DISTRIBUTOR one more day - May have sips & chips - Discussed plan with Dr. Scar Krishna PGY-3 <Angel Abbott - Last Filed: 08/25/16 10:29> Subjective - Date & Time of Evaluation Time of Evaluation: 09:30 - Subjective Subjective: Patient was seen and examined at the bedside. Agree with resident's note above. Objective - Vital Signs/Intake and Output Vital Signs (last 24 hours): Temp Pulse Resp BP Pulse Ox 98.5 F 65 20 166/76 H 96 08/25/16 08:12 08/25/16 08:52 08/25/16 08:12 08/25/16 08:52 08/25/16 08:12 - Medications Medications: Current Medications Diphenhydramine HCl (Benadryl) 25 mg IVP Q6 PRN PRN Reason: Itching / Pruritus Enoxaparin Sodium (Lovenox) 40 mg SC DAILY [facility] PRN Reason: Protocol Hydromorphone HCl (Dilaudid) 0.5 mg IVP Q10M PRN PRN Reason: Pain, moderate (4-7) Last Admin: 08/24/16 14:35 Dose: 0.5 mg Hydromorphone HCl (Dilaudid 0.2 Mg/Ml Photolith Operator) 0 mg IV PRN PRN; Protocol PRN Reason: Pain, moderate (4-7) Lactated Ringer's (Lactated Ringer's) 1,000 mls @ 125 mls/hr IV .Q8H [facility] Last Admin: 08/25/16 01:49 Dose: 125 mls/hr Metoprolol Tartrate (Lopressor) 50 mg PO BID [facility] Last Admin: 08/25/16 08:52 Dose: 50 mg Morphine Sulfate (Morphine) 4 mg IVP Q4 PRN PRN Reason: Pain, severe (8-10) Naloxone HCl (Narcan) 0.1 mg IVP Q2M PRN PRN Reason: Opiate reversal Ondansetron HCl (Zofran Inj) 4 mg IVP Q8 PRN PRN Reason: Nausea/Vomiting Pantoprazole Sodium (Protonix Inj) 40 mg IVP DAILY [facility] Last Admin: 08/25/16 08:53 Dose: 40 mg - Labs Labs: 08/25/16 05:40 08/25/16 05:40 PT 15.2 Seconds (9.8-13.1) H 08/23/16 16:10 INR 1.3 (0.9-1.2) H 08/23/16 16:10 APTT 24.0 Seconds (25.6-37.1) L 08/23/16 16:10
--- NOTE | 2016-08-25 11:34 | CP.PCM.PN ---
Subjective - Date & Time of Evaluation Date of Evaluation: 08/25/16 Time of Evaluation: 10:00 - Subjective Subjective: POD#1 s/p Colon resection CA removed Colostomy Only c/o incisional pain BS absent sitting in chair AAO x 3 VS stable Objective - Vital Signs/Intake and Output Vital Signs (last 24 hours): Temp Pulse Resp BP Pulse Ox 98.5 F 65 20 166/76 H 96 08/25/16 08:12 08/25/16 08:52 08/25/16 08:12 08/25/16 08:52 08/25/16 08:12 - Medications Medications: Current Medications Diphenhydramine HCl (Benadryl) 25 mg IVP Q6 PRN PRN Reason: Itching / Pruritus Enoxaparin Sodium (Lovenox) 40 mg SC DAILY [facility] PRN Reason: Protocol Hydromorphone HCl (Dilaudid) 0.5 mg IVP Q10M PRN PRN Reason: Pain, moderate (4-7) Last Admin: 08/24/16 14:35 Dose: 0.5 mg Hydromorphone HCl (Dilaudid 0.2 Mg/Ml Chief Embalmer) 0 mg IV PRN PRN; Protocol PRN Reason: Pain, moderate (4-7) Lactated Ringer's (Lactated Ringer's) 1,000 mls @ 125 mls/hr IV .Q8H [facility] Last Admin: 08/25/16 01:49 Dose: 125 mls/hr Metoprolol Tartrate (Lopressor) 50 mg PO BID [facility] Last Admin: 08/25/16 08:52 Dose: 50 mg Morphine Sulfate (Morphine) 4 mg IVP Q4 PRN PRN Reason: Pain, severe (8-10) Naloxone HCl (Narcan) 0.1 mg IVP Q2M PRN PRN Reason: Opiate reversal Ondansetron HCl (Zofran Inj) 4 mg IVP Q8 PRN PRN Reason: Nausea/Vomiting Pantoprazole Sodium (Protonix Inj) 40 mg IVP DAILY [facility] Last Admin: 08/25/16 08:53 Dose: 40 mg - Labs Labs: 08/25/16 05:40 08/25/16 05:40 PT 15.2 Seconds (9.8-13.1) H 08/23/16 16:10 INR 1.3 (0.9-1.2) H 08/23/16 16:10 APTT 24.0 Seconds (25.6-37.1) L 08/23/16 16:10 Assessment and Plan (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
[2016-08-26] MEDS: Lactated Ringer's 1,000 ML IV SCH ×3 (00:37→19:30)
[2016-08-26 07:11] LABS: BASO % 0.3 % (0.0-2.0); EOS % 0.2 % (0.0-4.0); HEMOGLOBIN 9.5 g/dL (12.0-18.0); LYMPH # 1.8 K/uL (1.0-4.3); LYMPH % 12.5 % (20.0-40.0); MEAN CELL VOLUME 78.3 fl (80.0-94.0); MEAN CORPUSCULAR HEMOGLOBIN 24.4 pg (27.0-31.0); MEAN CORPUSCULAR HGB CONC 31.2 g/dL (33.0-37.0); MEAN PLATELET VOLUME 10.2 fl (7.2-11.7); MONO # 1.2 K/uL (0.0-0.8); MONO % 8.6 % (0.0-10.0); NEUT # 11.2 K/uL (1.8-7.0); NEUT % 78.4 % (50.0-75.0); RBC 3.89 Mil/uL (4.40-5.90); RED CELL DISTRIBUTION WIDTH 16.7 % (11.5-14.5); WHITE BLOOD COUNT 14.3 K/uL (4.8-10.8)
[2016-08-26 07:35] LABS: ALB/GLOB RATIO 1.1 (1.0-2.1); ALBUMIN 3.3 g/dL (3.5-5.0); ALT/SGPT 23 U/L (21-72); AST/SGOT 34 U/L (17-59); BLOOD UREA NITROGEN 17 mg/dl (9-20); CALCIUM 8.6 mg/dL (8.4-10.2); GFR AFRICAN-AMERICAN > 60; GFR NON-AFRICAN AMERICAN > 60
--- NOTE | 2016-08-26 08:02 | CP.PCM.PN ---
Subjective - Date & Time of Evaluation Date of Evaluation: 08/26/16 Time of Evaluation: 08:00 - Subjective Subjective: Surgery: Dr. Moran Pt seen and examined. Resting comfortably in bed. Pain controlled. No N/V. No F/ C. Pt would like something to drink. Objective - Vital Signs/Intake and Output Vital Signs (last 24 hours): Temp Pulse Resp BP Pulse Ox 99.3 F 80 20 129/65 93 L 08/26/16 00:09 08/26/16 00:09 08/26/16 00:09 08/26/16 00:09 08/26/16 00:09 Intake and Output: 08/26/16 08/26/16 06:59 18:59 Intake Total 3300 Output Total 1250 Balance 0 - Medications Medications: Current Medications Diphenhydramine HCl (Benadryl) 25 mg IVP Q6 PRN PRN Reason: Itching / Pruritus Enoxaparin Sodium (Lovenox) 40 mg SC DAILY [facility] PRN Reason: Protocol Hydromorphone HCl (Dilaudid) 0.5 mg IVP Q10M PRN PRN Reason: Pain, moderate (4-7) Last Admin: 08/24/16 14:35 Dose: 0.5 mg Hydromorphone HCl (Dilaudid) 1 mg IVP Q4 PRN PRN Reason: Pain, moderate (4-7) Last Admin: 08/26/16 07:59 Dose: 1 mg Lactated Ringer's (Lactated Ringer's) 1,000 mls @ 125 mls/hr IV .Q8H [facility] Last Admin: 08/26/16 00:37 Dose: 125 mls/hr Metoprolol Tartrate (Lopressor) 50 mg PO BID [facility] Last Admin: 08/25/16 17:16 Dose: 50 mg Morphine Sulfate (Morphine) 4 mg IVP Q4 PRN PRN Reason: Pain, severe (8-10) Naloxone HCl (Narcan) 0.1 mg IVP Q2M PRN PRN Reason: Opiate reversal Ondansetron HCl (Zofran Inj) 4 mg IVP Q8 PRN PRN Reason: Nausea/Vomiting Pantoprazole Sodium (Protonix Inj) 40 mg IVP DAILY [facility] Last Admin: 08/25/16 08:53 Dose: 40 mg - Labs Labs: 08/26/16 05:50 08/26/16 05:50 PT 15.2 Seconds (9.8-13.1) H 08/23/16 16:10 INR 1.3 (0.9-1.2) H 08/23/16 16:10 APTT 24.0 Seconds (25.6-37.1) L 08/23/16 16:10 - Constitutional Appears: Non-toxic, No Acute Distress - Head Exam Head Exam: ATRAUMATIC, NORMOCEPHALIC - Eye Exam Eye Exam: EOMI. absent: Scleral icterus - ENT Exam ENT Exam: Mucous Membranes Moist - Respiratory Exam Respiratory Exam: NORMAL BREATHING PATTERN. absent: Accessory Muscle Use, Respiratory Distress - GI/Abdominal Exam GI & Abdominal Exam: Soft, Tenderness (tari-incisional ). absent: Distended, Firm, Guarding, Rigid, Rebound Additional comments: Stoma pink and patent Incision C/D/I w. santos in place - Extremities Exam Extremities Exam: absent: Calf Tenderness, Pedal Edema - Neurological Exam Neurological Exam: Alert, Awake, Oriented x3 Assessment and Plan - Assessment and Plan (Free Text) Assessment: 80M w. sigmoid mass, S/P sigmoid resection w. primary anastomosis and diverting blow hole colostomy, POD#2 -wbc trending down -will start CLD, monitor bowel fxn and ADAT -c/w pain meds -encourage OOB to chair and IS use -PT -GI/DVT prophylaxis -d/w attending Zemaitis PGY3
[2016-08-26] MEDS: Enoxaparin 40 mg Syringe SC SCH (11:02)
--- NOTE | 2016-08-26 11:11 | CP.PCM.PN ---
Subjective - Date & Time of Evaluation Date of Evaluation: 08/26/16 Time of Evaluation: 10:00 - Subjective Subjective: AAo x 3 Drowsy from pain meds only c/o incisional pain Surgical note apprec Clear liquids started Objective - Vital Signs/Intake and Output Vital Signs (last 24 hours): Temp Pulse Resp BP Pulse Ox 98.9 F 74 20 117/69 96 08/26/16 08:13 08/26/16 11:01 08/26/16 08:13 08/26/16 11:01 08/26/16 08:13 Intake and Output: 08/26/16 08/26/16 06:59 18:59 Intake Total 3300 Output Total 1250 Balance 2049 - Medications Medications: Current Medications Diphenhydramine HCl (Benadryl) 25 mg IVP Q6 PRN PRN Reason: Itching / Pruritus Enoxaparin Sodium (Lovenox) 40 mg SC DAILY [facility] PRN Reason: Protocol Last Admin: 08/26/16 11:02 Dose: 40 mg Hydromorphone HCl (Dilaudid) 0.5 mg IVP Q10M PRN PRN Reason: Pain, moderate (4-7) Last Admin: 08/24/16 14:35 Dose: 0.5 mg Hydromorphone HCl (Dilaudid) 1 mg IVP Q4 PRN PRN Reason: Pain, moderate (4-7) Last Admin: 08/26/16 07:59 Dose: 1 mg Lactated Ringer's (Lactated Ringer's) 1,000 mls @ 125 mls/hr IV .Q8H [facility] Last Admin: 08/26/16 11:02 Dose: 125 mls/hr Cefazolin Sodium 1 gm/ Sodium (Chloride) 100 mls @ 100 mls/hr IVPB Q12 [facility] Metoprolol Tartrate (Lopressor) 50 mg PO BID [facility] Last Admin: 08/26/16 11:01 Dose: 50 mg Morphine Sulfate (Morphine) 4 mg IVP Q4 PRN PRN Reason: Pain, severe (8-10) Naloxone HCl (Narcan) 0.1 mg IVP Q2M PRN PRN Reason: Opiate reversal Ondansetron HCl (Zofran Inj) 4 mg IVP Q8 PRN PRN Reason: Nausea/Vomiting Pantoprazole Sodium (Protonix Inj) 40 mg IVP DAILY [facility] Last Admin: 08/26/16 11:01 Dose: 40 mg - Labs Labs: 08/26/16 05:50 08/26/16 05:50 PT 15.2 Seconds (9.8-13.1) H 08/23/16 16:10 INR 1.3 (0.9-1.2) H 08/23/16 16:10 APTT 24.0 Seconds (25.6-37.1) L 08/23/16 16:10 Assessment and Plan (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
[2016-08-26] MEDS: ceFAZolin 1 GM in Sodium Chloride 0.9% 100 ML IVPB SCH ×2 (11:54→21:05)
[2016-08-26] MEDS: Morphine 4 MG/ML VIAL IVP PRN (21:15)
[2016-08-27] MEDS: Morphine 4 MG/ML VIAL IVP PRN ×3 (00:59→21:04)
[2016-08-27] MEDS: Lactated Ringer's 1,000 ML IV SCH ×4 (06:08→21:14)
[2016-08-27 07:26] LABS: HEMOGLOBIN 9.4 g/dL (12.0-18.0); MEAN CELL VOLUME 77.4 fl (80.0-94.0); MEAN CORPUSCULAR HGB CONC 32.3 g/dL (33.0-37.0); RBC 3.75 Mil/uL (4.40-5.90); RED CELL DISTRIBUTION WIDTH 16.8 % (11.5-14.5); WHITE BLOOD COUNT 10.4 K/uL (4.8-10.8)
--- NOTE | 2016-08-27 08:25 | CP.PCM.PN ---
<JulianHeladio - Last Filed: 08/27/16 08:23> Subjective - Date & Time of Evaluation Date of Evaluation: 08/27/16 Time of Evaluation: 08:23 - Subjective Subjective: Surgery for Dr. Abbott Pt s&adrián MORROW. Denies F/C/N/V/D/CP/SOB. Ostomy putting out fluids and some fecal matter. + amb. + void. Tolerating CLD. Objective - Vital Signs/Intake and Output Vital Signs (last 24 hours): Temp Pulse Resp BP Pulse Ox 98.5 F 67 20 132/72 98 08/27/16 00:16 08/27/16 00:16 08/27/16 00:16 08/27/16 00:16 08/27/16 00:16 Intake and Output: 08/27/16 08/27/16 06:59 18:59 Intake Total 1300 Output Total 500 Balance 800 - Medications Medications: Current Medications Diphenhydramine HCl (Benadryl) 25 mg IVP Q6 PRN PRN Reason: Itching / Pruritus Enoxaparin Sodium (Lovenox) 40 mg SC DAILY [facility] PRN Reason: Protocol Last Admin: 08/26/16 11:02 Dose: 40 mg Hydromorphone HCl (Dilaudid) 0.5 mg IVP Q10M PRN PRN Reason: Pain, moderate (4-7) Last Admin: 08/24/16 14:35 Dose: 0.5 mg Hydromorphone HCl (Dilaudid) 1 mg IVP Q4 PRN PRN Reason: Pain, moderate (4-7) Last Admin: 08/26/16 07:59 Dose: 1 mg Lactated Ringer's (Lactated Ringer's) 1,000 mls @ 125 mls/hr IV .Q8H [facility] Last Admin: 08/27/16 06:12 Dose: 125 mls/hr Cefazolin Sodium 1 gm/ Sodium (Chloride) 100 mls @ 100 mls/hr IVPB Q12 [facility] Last Admin: 08/26/16 21:05 Dose: 100 mls/hr Metoprolol Tartrate (Lopressor) 50 mg PO BID [facility] Last Admin: 08/26/16 17:57 Dose: 50 mg Morphine Sulfate (Morphine) 4 mg IVP Q4 PRN PRN Reason: Pain, severe (8-10) Last Admin: 08/27/16 00:59 Dose: 4 mg Ondansetron HCl (Zofran Inj) 4 mg IVP Q8 PRN PRN Reason: Nausea/Vomiting Pantoprazole Sodium (Protonix Inj) 40 mg IVP DAILY [facility] Last Admin: 08/26/16 11:01 Dose: 40 mg - Labs Labs: 08/27/16 05:30 08/26/16 05:50 PT 15.2 Seconds (9.8-13.1) H 08/23/16 16:10 INR 1.3 (0.9-1.2) H 08/23/16 16:10 APTT 24.0 Seconds (25.6-37.1) L 08/23/16 16:10 - Constitutional Appears: No Acute Distress - Head Exam Head Exam: ATRAUMATIC, NORMAL INSPECTION, NORMOCEPHALIC - Eye Exam Eye Exam: EOMI, Normal appearance, PERRL Pupil Exam: NORMAL ACCOMODATION, PERRL - ENT Exam ENT Exam: Mucous Membranes Moist, Normal Exam - Neck Exam Neck Exam: Full ROM, Normal Inspection. absent: Lymphadenopathy - Respiratory Exam Respiratory Exam: Clear to Ausculation Bilateral, NORMAL BREATHING PATTERN - Cardiovascular Exam Cardiovascular Exam: REGULAR RHYTHM, +S1, +S2. absent: Murmur - GI/Abdominal Exam GI & Abdominal Exam: Soft, Tenderness, Normal Bowel Sounds. absent: Distended, Firm, Guarding, Rigid Additional comments: Ostomy in place. some fecal matter, gas, SS fluid. [place]. Incision D/I. Stapled. - Extremities Exam Extremities Exam: Full ROM - Neurological Exam Neurological Exam: Alert, Awake, CN II-XII Intact, Normal Gait, Oriented x3 - Psychiatric Exam Psychiatric exam: Normal Affect, Normal Mood - Skin Skin Exam: Dry, Intact, Normal Color, Warm Assessment and Plan - Assessment and Plan (Free Text) Assessment: 80M w. sigmoid mass, S/P sigmoid resection w. primary anastomosis and diverting blow hole colostomy, POD#3 -wbc wnl -will start FLD, monitor bowel fxn and ADAT -c/w pain meds -encourage OOB to chair and IS use -PT -GI/DVT prophylaxis -will d/w attending <Angel Abbott - Last Filed: 08/27/16 14:56> Subjective - Date & Time of Evaluation Time of Evaluation: 13:30 - Subjective Subjective: Patient was seen and examined at the bedside. Agree with resident's note above Objective - Vital Signs/Intake and Output Vital Signs (last 24 hours): Temp Pulse Resp BP Pulse Ox 98.7 F 85 18 165/81 H 94 L 08/27/16 08:39 08/27/16 09:30 08/27/16 08:39 08/27/16 09:30 08/27/16 08:39 Intake and Output: 08/27/16 08/27/16 06:59 18:59 Intake Total 1300 Output Total 500 Balance 800 - Medications Medications: Current Medications Diphenhydramine HCl (Benadryl) 25 mg IVP Q6 PRN PRN Reason: Itching / Pruritus Enoxaparin Sodium (Lovenox) 40 mg SC DAILY [facility] PRN Reason: Protocol Last Admin: 08/27/16 09:30 Dose: 40 mg Hydromorphone HCl (Dilaudid) 1 mg IVP Q4 PRN PRN Reason: Pain, moderate (4-7) Last Admin: 08/26/16 07:59 Dose: 1 mg Lactated Ringer's (Lactated Ringer's) 1,000 mls @ 125 mls/hr IV .Q8H [facility] Last Admin: 08/27/16 13:50 Dose: 125 mls/hr Cefazolin Sodium 1 gm/ Sodium (Chloride) 100 mls @ 100 mls/hr IVPB Q12 [facility] Last Admin: 08/27/16 10:00 Dose: 100 mls/hr Metoprolol Tartrate (Lopressor) 50 mg PO BID [facility] Last Admin: 08/27/16 09:30 Dose: 50 mg Morphine Sulfate (Morphine) 4 mg IVP Q4 PRN PRN Reason: Pain, severe (8-10) Last Admin: 08/27/16 10:37 Dose: 4 mg Ondansetron HCl (Zofran Inj) 4 mg IVP Q8 PRN PRN Reason: Nausea/Vomiting Pantoprazole Sodium (Protonix Inj) 40 mg IVP DAILY [facility] Last Admin: 08/27/16 09:32 Dose: 40 mg - Labs Labs: 08/27/16 05:30 08/26/16 05:50 PT 15.2 Seconds (9.8-13.1) H 08/23/16 16:10 INR 1.3 (0.9-1.2) H 08/23/16 16:10 APTT 24.0 Seconds (25.6-37.1) L 08/23/16 16:10 Assessment and Plan - Assessment and Plan (Free Text) Plan: - Keep on clear liquid diet - Pain control - IV fluids - Insentive spirometry - DVT ppx - Repeat labs in am - Out of bed and ambulate - Will follow
[2016-08-27] MEDS: Enoxaparin 40 mg Syringe SC SCH (09:30)
[2016-08-27] MEDS: ceFAZolin 1 GM in Sodium Chloride 0.9% 100 ML IVPB SCH ×2 (10:00→21:14)
--- NOTE | 2016-08-27 11:10 | CP.PCM.PN ---
Subjective - Date & Time of Evaluation Date of Evaluation: 08/27/16 Time of Evaluation: 10:00 - Subjective Subjective: c/o incisional pain tolerating clear liquids BS + Objective - Vital Signs/Intake and Output Vital Signs (last 24 hours): Temp Pulse Resp BP Pulse Ox 98.7 F 85 18 165/81 H 94 L 08/27/16 08:39 08/27/16 09:30 08/27/16 08:39 08/27/16 09:30 08/27/16 08:39 Intake and Output: 08/27/16 08/27/16 06:59 18:59 Intake Total 1300 Output Total 500 Balance 800 - Medications Medications: Current Medications Diphenhydramine HCl (Benadryl) 25 mg IVP Q6 PRN PRN Reason: Itching / Pruritus Enoxaparin Sodium (Lovenox) 40 mg SC DAILY [facility] PRN Reason: Protocol Last Admin: 08/27/16 09:30 Dose: 40 mg Hydromorphone HCl (Dilaudid) 0.5 mg IVP Q10M PRN PRN Reason: Pain, moderate (4-7) Last Admin: 08/24/16 14:35 Dose: 0.5 mg Hydromorphone HCl (Dilaudid) 1 mg IVP Q4 PRN PRN Reason: Pain, moderate (4-7) Last Admin: 08/26/16 07:59 Dose: 1 mg Lactated Ringer's (Lactated Ringer's) 1,000 mls @ 125 mls/hr IV .Q8H [facility] Last Admin: 08/27/16 06:12 Dose: 125 mls/hr Cefazolin Sodium 1 gm/ Sodium (Chloride) 100 mls @ 100 mls/hr IVPB Q12 [facility] Last Admin: 08/26/16 21:05 Dose: 100 mls/hr Metoprolol Tartrate (Lopressor) 50 mg PO BID [facility] Last Admin: 08/27/16 09:30 Dose: 50 mg Morphine Sulfate (Morphine) 4 mg IVP Q4 PRN PRN Reason: Pain, severe (8-10) Last Admin: 08/27/16 10:37 Dose: 4 mg Ondansetron HCl (Zofran Inj) 4 mg IVP Q8 PRN PRN Reason: Nausea/Vomiting Pantoprazole Sodium (Protonix Inj) 40 mg IVP DAILY [facility] Last Admin: 08/27/16 09:32 Dose: 40 mg - Labs Labs: 08/27/16 05:30 08/26/16 05:50 PT 15.2 Seconds (9.8-13.1) H 08/23/16 16:10 INR 1.3 (0.9-1.2) H 08/23/16 16:10 APTT 24.0 Seconds (25.6-37.1) L 08/23/16 16:10 Assessment and Plan (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
[2016-08-28 08:08] LABS: BASO % 0.4 % (0.0-2.0); EOS # 0.2 K/uL (0.0-0.7); EOS % 2.9 % (0.0-4.0); LYMPH % 15.8 % (20.0-40.0); MEAN CELL VOLUME 76.4 fl (80.0-94.0); MEAN CORPUSCULAR HEMOGLOBIN 24.7 pg (27.0-31.0); MEAN CORPUSCULAR HGB CONC 32.4 g/dL (33.0-37.0); MEAN PLATELET VOLUME 9.6 fl (7.2-11.7); MONO # 0.7 K/uL (0.0-0.8); NEUT # 4.5 K/uL (1.8-7.0); NEUT % 69.9 % (50.0-75.0); NRBC % 0.1 % (0.0-0.0); RBC 3.63 Mil/uL (4.40-5.90); RED CELL DISTRIBUTION WIDTH 16.6 % (11.5-14.5); WHITE BLOOD COUNT 6.4 K/uL (4.8-10.8)
[2016-08-28 08:30] LABS: ALB/GLOB RATIO 0.9 (1.0-2.1); ALBUMIN 2.8 g/dL (3.5-5.0); ALT/SGPT 18 U/L (21-72); AST/SGOT 28 U/L (17-59); BLOOD UREA NITROGEN 12 mg/dl (9-20); CALCIUM 8.5 mg/dL (8.4-10.2); GFR AFRICAN-AMERICAN > 60; GFR NON-AFRICAN AMERICAN > 60
[2016-08-28] MEDS: ceFAZolin 1 GM in Sodium Chloride 0.9% 100 ML IVPB SCH ×2 (08:47→21:01)
[2016-08-28] MEDS: Enoxaparin 40 mg Syringe SC SCH (08:48)
[2016-08-28] MEDS: Lactated Ringer's 1,000 ML IV SCH ×3 (08:54→20:00)
[2016-08-28] MEDS ORDERED: Potassium Chloride 20 mEq ER Tab PO ONE (10:16)
[2016-08-28] MEDS ORDERED: Oxycodone/Acetaminophen 5/325 mg Tab PO PRN (10:20)
[2016-08-28] MEDS ORDERED: HYDROmorphone 0.5 mg/0.5 ml ISec IVP PRN (10:20)
--- NOTE | 2016-08-28 10:22 | CP.PCM.PN ---
<JulianHeladio - Last Filed: 08/28/16 13:09> Subjective - Date & Time of Evaluation Date of Evaluation: 08/28/16 Time of Evaluation: 13:09 - Subjective Subjective: Surgery for Dr. Abbott Pt s&adrián MORROW. brown stool from ostomy. Denies F/C/N/V/D/CP/SOB. Tolerating diet. +amb. + void. Objective - Vital Signs/Intake and Output Vital Signs (last 24 hours): Temp Pulse Resp BP Pulse Ox 97.8 F 95 H 20 166/83 H 94 L 08/28/16 07:39 08/28/16 07:39 08/28/16 07:39 08/28/16 07:39 08/28/16 07:39 Intake and Output: 08/28/16 08/28/16 06:59 18:59 Intake Total 1300 Balance 1300 - Medications Medications: Current Medications Diphenhydramine HCl (Benadryl) 25 mg IVP Q6 PRN PRN Reason: Itching / Pruritus Enoxaparin Sodium (Lovenox) 40 mg SC DAILY [facility] PRN Reason: Protocol Last Admin: 08/28/16 08:48 Dose: 40 mg Hydromorphone HCl (Dilaudid) 0.5 mg IVP Q4 PRN PRN Reason: Pain, severe (8-10) Lactated Ringer's (Lactated Ringer's) 1,000 mls @ 125 mls/hr IV .Q8H [facility] Last Admin: 08/28/16 08:54 Dose: 125 mls/hr Cefazolin Sodium 1 gm/ Sodium (Chloride) 100 mls @ 100 mls/hr IVPB Q12 [facility] Last Admin: 08/28/16 08:47 Dose: 100 mls/hr Metoprolol Tartrate (Lopressor) 50 mg PO BID [facility] Last Admin: 08/28/16 08:48 Dose: 50 mg Morphine Sulfate (Morphine) 4 mg IVP Q4 PRN PRN Reason: Pain, severe (8-10) Last Admin: 08/27/16 21:04 Dose: 4 mg Ondansetron HCl (Zofran Inj) 4 mg IVP Q8 PRN PRN Reason: Nausea/Vomiting Oxycodone/Acetaminophen (Percocet 5/325 Mg Tab) 2 tab PO Q4 PRN PRN Reason: Pain, moderate (4-7) Stop: 08/31/16 10:21 Pantoprazole Sodium (Protonix Inj) 40 mg IVP DAILY [facility] Last Admin: 08/28/16 08:47 Dose: 40 mg - Labs Labs: 08/28/16 05:30 08/28/16 05:30 PT 15.2 Seconds (9.8-13.1) H 08/23/16 16:10 INR 1.3 (0.9-1.2) H 08/23/16 16:10 APTT 24.0 Seconds (25.6-37.1) L 08/23/16 16:10 - Constitutional Appears: No Acute Distress - Head Exam Head Exam: ATRAUMATIC, NORMAL INSPECTION, NORMOCEPHALIC - Eye Exam Eye Exam: EOMI, Normal appearance, PERRL Pupil Exam: NORMAL ACCOMODATION, PERRL - ENT Exam ENT Exam: Mucous Membranes Moist, Normal Exam - Neck Exam Neck Exam: Full ROM, Normal Inspection. absent: Lymphadenopathy - Respiratory Exam Respiratory Exam: Clear to Ausculation Bilateral, NORMAL BREATHING PATTERN - Cardiovascular Exam Cardiovascular Exam: REGULAR RHYTHM, +S1, +S2. absent: Murmur - GI/Abdominal Exam GI & Abdominal Exam: Soft. absent: Tenderness Additional comments: Ostomy functioning. Stool. No signs of infection . - Exam Exam: NORMAL INSPECTION - Extremities Exam Extremities Exam: Full ROM, Normal Capillary Refill, Normal Inspection. absent : Joint Swelling, Pedal Edema - Back Exam Back Exam: NORMAL INSPECTION - Neurological Exam Neurological Exam: Alert, Awake, CN II-XII Intact, Normal Gait, Oriented x3 - Psychiatric Exam Psychiatric exam: Normal Affect, Normal Mood - Skin Skin Exam: Dry, Intact, Normal Color, Warm Assessment and Plan - Assessment and Plan (Free Text) Assessment: 80M w. sigmoid mass, S/P sigmoid resection w. primary anastomosis and diverting blow hole colostomy, POD#4 Stool in stoma. -wbc wnl -will start regular diet , monitor bowel fxn -c/w pain meds -encourage OOB to chair and IS use -PT -GI/DVT prophylaxis -d/w attending <Angel Abbott - Last Filed: 08/28/16 13:55> Subjective - Subjective Subjective: Patient was seen and examined at the bedside. Agree with resident's note above. Objective - Vital Signs/Intake and Output Vital Signs (last 24 hours): Temp Pulse Resp BP Pulse Ox 97.8 F 95 H 20 166/83 H 94 L 08/28/16 07:39 08/28/16 07:39 08/28/16 07:39 08/28/16 07:39 08/28/16 07:39 Intake and Output: 08/28/16 08/28/16 06:59 18:59 Intake Total 1300 Balance 1300 - Medications Medications: Current Medications Diphenhydramine HCl (Benadryl) 25 mg IVP Q6 PRN PRN Reason: Itching / Pruritus Enoxaparin Sodium (Lovenox) 40 mg SC DAILY [facility] PRN Reason: Protocol Last Admin: 08/28/16 08:48 Dose: 40 mg Hydromorphone HCl (Dilaudid) 0.5 mg IVP Q4 PRN PRN Reason: Pain, severe (8-10) Lactated Ringer's (Lactated Ringer's) 1,000 mls @ 125 mls/hr IV .Q8H [facility] Last Admin: 08/28/16 12:29 Dose: Not Given Cefazolin Sodium 1 gm/ Sodium (Chloride) 100 mls @ 100 mls/hr IVPB Q12 [facility] Last Admin: 08/28/16 08:47 Dose: 100 mls/hr Metoprolol Tartrate (Lopressor) 50 mg PO BID [facility] Last Admin: 08/28/16 08:48 Dose: 50 mg Morphine Sulfate (Morphine) 4 mg IVP Q4 PRN PRN Reason: Pain, severe (8-10) Last Admin: 08/27/16 21:04 Dose: 4 mg Ondansetron HCl (Zofran Inj) 4 mg IVP Q8 PRN PRN Reason: Nausea/Vomiting Oxycodone/Acetaminophen (Percocet 5/325 Mg Tab) 2 tab PO Q4 PRN PRN Reason: Pain, moderate (4-7) Stop: 08/31/16 10:21 Pantoprazole Sodium (Protonix Inj) 40 mg IVP DAILY [facility] Last Admin: 08/28/16 08:47 Dose: 40 mg - Labs Labs: 08/28/16 05:30 08/28/16 05:30 PT 15.2 Seconds (9.8-13.1) H 08/23/16 16:10 INR 1.3 (0.9-1.2) H 08/23/16 16:10 APTT 24.0 Seconds (25.6-37.1) L 08/23/16 16:10 Assessment and Plan - Assessment and Plan (Free Text) Plan: - regular diet - pain control - Insentive spirometry - DVT ppx - Out of bed and ambulate - Patient is clear for transfer to TCU from the surgical stand point
--- NOTE | 2016-08-28 11:41 | CP.PCM.PN ---
Subjective - Date & Time of Evaluation Date of Evaluation: 08/28/16 Time of Evaluation: 10:00 - Subjective Subjective: Feels well except for incisional pain tolerating clear liquids will be increased to full liquids sitting OOb inchair ambulates with assistance to the bathroom Objective - Vital Signs/Intake and Output Vital Signs (last 24 hours): Temp Pulse Resp BP Pulse Ox 97.8 F 95 H 20 166/83 H 94 L 08/28/16 07:39 08/28/16 07:39 08/28/16 07:39 08/28/16 07:39 08/28/16 07:39 Intake and Output: 08/28/16 08/28/16 06:59 18:59 Intake Total 1300 Balance 1300 - Medications Medications: Current Medications Diphenhydramine HCl (Benadryl) 25 mg IVP Q6 PRN PRN Reason: Itching / Pruritus Enoxaparin Sodium (Lovenox) 40 mg SC DAILY [facility] PRN Reason: Protocol Last Admin: 08/28/16 08:48 Dose: 40 mg Hydromorphone HCl (Dilaudid) 0.5 mg IVP Q4 PRN PRN Reason: Pain, severe (8-10) Lactated Ringer's (Lactated Ringer's) 1,000 mls @ 125 mls/hr IV .Q8H [facility] Last Admin: 08/28/16 08:54 Dose: 125 mls/hr Cefazolin Sodium 1 gm/ Sodium (Chloride) 100 mls @ 100 mls/hr IVPB Q12 [facility] Last Admin: 08/28/16 08:47 Dose: 100 mls/hr Metoprolol Tartrate (Lopressor) 50 mg PO BID [facility] Last Admin: 08/28/16 08:48 Dose: 50 mg Morphine Sulfate (Morphine) 4 mg IVP Q4 PRN PRN Reason: Pain, severe (8-10) Last Admin: 08/27/16 21:04 Dose: 4 mg Ondansetron HCl (Zofran Inj) 4 mg IVP Q8 PRN PRN Reason: Nausea/Vomiting Oxycodone/Acetaminophen (Percocet 5/325 Mg Tab) 2 tab PO Q4 PRN PRN Reason: Pain, moderate (4-7) Stop: 08/31/16 10:21 Pantoprazole Sodium (Protonix Inj) 40 mg IVP DAILY [facility] Last Admin: 08/28/16 08:47 Dose: 40 mg - Labs Labs: 08/28/16 05:30 08/28/16 05:30 PT 15.2 Seconds (9.8-13.1) H 08/23/16 16:10 INR 1.3 (0.9-1.2) H 08/23/16 16:10 APTT 24.0 Seconds (25.6-37.1) L 08/23/16 16:10 Assessment and Plan (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
[2016-08-28] MEDS: Morphine 4 MG/ML VIAL IVP PRN (21:09)
[2016-08-29 00:14] VITALS: O2SAT 98
[2016-08-29] MEDS: Morphine 4 MG/ML VIAL IVP PRN ×2 (03:06→12:29)
[2016-08-29] MEDS: Lactated Ringer's 1,000 ML IV SCH ×2 (04:00→12:28)
[2016-08-29 07:29] VITALS: BP 154/78; PULSE 81; RESP 20; TEMP 97.8
--- NOTE | 2016-08-29 08:37 | CP.PCM.PN ---
Subjective - Date & Time of Evaluation Date of Evaluation: 08/29/16 Time of Evaluation: 08:34 - Subjective Subjective: Surgery Progress note. Dr. Abbott Pt seen and examined at bedside. No acute events overnight. Patient still c/o abd pain, states that IV pain meds do not last as long. Has been eating solid food since yesterday, denies any complaints, No N/V/D. No F/C. No CP/SOB. Has been ambulating in [place]. Objective - Vital Signs/Intake and Output Vital Signs (last 24 hours): Temp Pulse Resp BP Pulse Ox 97.8 F 81 20 154/78 H 98 08/29/16 07:29 08/29/16 07:29 08/29/16 07:29 08/29/16 07:29 08/29/16 07:29 Intake and Output: 08/29/16 08/29/16 06:59 18:59 Intake Total 100 Output Total 200 Balance -100 - Medications Medications: Current Medications Diphenhydramine HCl (Benadryl) 25 mg IVP Q6 PRN PRN Reason: Itching / Pruritus Enoxaparin Sodium (Lovenox) 40 mg SC DAILY [facility] PRN Reason: Protocol Last Admin: 08/28/16 08:48 Dose: 40 mg Lactated Ringer's (Lactated Ringer's) 1,000 mls @ 125 mls/hr IV .Q8H [facility] Last Admin: 08/29/16 04:00 Dose: Not Given Cefazolin Sodium 1 gm/ Sodium (Chloride) 100 mls @ 100 mls/hr IVPB Q12 [facility] Last Admin: 08/28/16 21:01 Dose: 100 mls/hr Metoprolol Tartrate (Lopressor) 50 mg PO BID [facility] Last Admin: 08/28/16 16:21 Dose: 50 mg Morphine Sulfate (Morphine) 4 mg IVP Q4 PRN PRN Reason: Pain, severe (8-10) Last Admin: 08/29/16 03:06 Dose: 4 mg Ondansetron HCl (Zofran Inj) 4 mg IVP Q8 PRN PRN Reason: Nausea/Vomiting Pantoprazole Sodium (Protonix Inj) 40 mg IVP DAILY [facility] Last Admin: 08/28/16 08:47 Dose: 40 mg Tramadol HCl (Ultram) 50 mg PO Q4 PRN PRN Reason: Pain, moderate (4-7) - Labs Labs: 08/28/16 05:30 08/28/16 05:30 PT 15.2 Seconds (9.8-13.1) H 08/23/16 16:10 INR 1.3 (0.9-1.2) H 08/23/16 16:10 APTT 24.0 Seconds (25.6-37.1) L 08/23/16 16:10 - Constitutional Appears: Well, No Acute Distress - Head Exam Head Exam: ATRAUMATIC, NORMAL INSPECTION, NORMOCEPHALIC - Eye Exam Eye Exam: EOMI - Respiratory Exam Respiratory Exam: NORMAL BREATHING PATTERN - GI/Abdominal Exam GI & Abdominal Exam: Soft Additional comments: Moderately tender in upper abdomen. Non distended, soft. Ostomy in place with some semisolid stool output. Midline incision clean, dry and intact, skin edges well approximated. No active drainage. - Extremities Exam Extremities Exam: Normal Inspection. absent: Calf Tenderness - Neurological Exam Neurological Exam: Alert, Awake, Oriented x3 - Skin Skin Exam: Dry, Intact, Normal Color, Warm Assessment and Plan - Assessment and Plan (Free Text) Assessment: 80yo M w/ sigmoid mass, S/P sigmoid resection w. primary anastomosis and diverting blow hole colostomy, POD#5 - Stool in stoma - wbc wnl - continue regular diet , monitor bowel fxn - pain meds: transition to PO meds - encourage OOB to chair and IS use - PT - GI/DVT prophylaxis Further recs as per Dr. Scar Bullard PGY1
[2016-08-29] MEDS: ceFAZolin 1 GM in Sodium Chloride 0.9% 100 ML IVPB SCH (08:41)
[2016-08-29] MEDS: Enoxaparin 40 mg Syringe SC SCH (08:42)
--- NOTE | 2016-08-29 11:06 | CP.PCM.PN ---
Subjective - Date & Time of Evaluation Date of Evaluation: 08/29/16 Time of Evaluation: 10:00 - Subjective Subjective: Pt continues to c/o lower abdominal pains Pt was seen by DR Guido Flynn who recommends Chemotherapy Pt is depressed about this and undecided Spoke with him at length -- encouraging him to go for [facility] also advised him to speak with his family Accepted in TCU for possible transfer today Objective - Vital Signs/Intake and Output Vital Signs (last 24 hours): Temp Pulse Resp BP Pulse Ox 97.8 F 81 20 154/78 H 98 08/29/16 07:29 08/29/16 08:41 08/29/16 07:29 08/29/16 08:41 08/29/16 07:29 Intake and Output: 08/29/16 08/29/16 06:59 18:59 Intake Total 100 Output Total 200 Balance -100 - Medications Medications: Current Medications Diphenhydramine HCl (Benadryl) 25 mg IVP Q6 PRN PRN Reason: Itching / Pruritus Enoxaparin Sodium (Lovenox) 40 mg SC DAILY [facility] PRN Reason: Protocol Last Admin: 08/29/16 08:42 Dose: 40 mg Lactated Ringer's (Lactated Ringer's) 1,000 mls @ 125 mls/hr IV .Q8H [facility] Last Admin: 08/29/16 04:00 Dose: Not Given Cefazolin Sodium 1 gm/ Sodium (Chloride) 100 mls @ 100 mls/hr IVPB Q12 [facility] Last Admin: 08/29/16 08:41 Dose: 100 mls/hr Metoprolol Tartrate (Lopressor) 50 mg PO BID [facility] Last Admin: 08/29/16 08:41 Dose: 50 mg Morphine Sulfate (Morphine) 4 mg IVP Q4 PRN PRN Reason: Pain, severe (8-10) Last Admin: 08/29/16 03:06 Dose: 4 mg Ondansetron HCl (Zofran Inj) 4 mg IVP Q8 PRN PRN Reason: Nausea/Vomiting Pantoprazole Sodium (Protonix Inj) 40 mg IVP DAILY [facility] Last Admin: 08/29/16 08:42 Dose: 40 mg Tramadol HCl (Ultram) 50 mg PO Q4 PRN PRN Reason: Pain, moderate (4-7) Last Admin: 08/29/16 09:49 Dose: 50 mg - Labs Labs: 08/28/16 05:30 08/28/16 05:30 PT 15.2 Seconds (9.8-13.1) H 08/23/16 16:10 INR 1.3 (0.9-1.2) H 08/23/16 16:10 APTT 24.0 Seconds (25.6-37.1) L 08/23/16 16:10 Assessment and Plan (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
--- NOTE | 2016-08-29 11:20 | CP.PCM.CON ---
History of Present Illness - History of Present Illness History of Present Illness: This is a 80 yrs old male who was admitted for an obstructive lesion found in the sigmoid colon. He has been having bleeding off and on for a couple of months and anemi ,because of the bleeding. He was sent for a colonoscopy on 08/19/16. but the test could not be completed because the scope would not pass through the sigmoid mass which was biopsied and showed a adenocarcinoma, of the sigmoid moderately differentiated , 11 mesocolic lymph nodes negative for tumor, margins were clean (3 cm)., Tumor was 4cm x 3cms in size,infiltrating into the full thickness of the muscularis propria, andd the pericolonic fat, but does not go beyond the serosal border. T3,N0. Past Patient History - Past Medical History & Family History Past Medical History?: Yes Past Family History: Reviewed and not pertinent - Past Social History Smoking Status: Never Smoked Alcohol: None Drugs: Denies - CARDIAC Hx Cardiac Disorders: Yes Hx Hypertension: Yes Other/Comment: CABG w/ AVR - PULMONARY Hx Chronic Obstructive Pulmonary Disease (COPD): Yes - NEUROLOGICAL Hx Neurological Disorder: No - HEENT Hx HEENT Problems: Yes Other/Comment: eyeglasses - RENAL Hx Chronic Kidney Disease: No Hx Dialysis: No - ENDOCRINE/METABOLIC Hx Endocrine Disorders: No - HEMATOLOGICAL/ONCOLOGICAL Hx Blood Disorders: No Hx AIDS: No Hx Human Immunodeficiency Virus (HIV): No - INTEGUMENTARY Hx Dermatological Problems: No - MUSCULOSKELETAL/RHEUMATOLOGICAL Hx Falls: No - GASTROINTESTINAL Hx Gastrointestinal Disorders: No - GENITOURINARY/GYNECOLOGICAL Hx Genitourinary Disorders: No - PSYCHIATRIC Hx Substance Use: No - SURGICAL HISTORY Hx Cholecystectomy: Yes Hx Coronary Artery Bypass Graft: Yes - ANESTHESIA Hx Anesthesia: Yes Hx Anesthesia Reactions: No Hx Malignant Hyperthermia: No Meds Home Medications: Home Medication List Medication Instructions Recorded Confirmed Type Enoxaparin [Lovenox] 40 mg SC DAILY [facility] 08/29/16 Rx traMADol [Ultram] 50 mg PO Q4 PRN tab 08/29/16 Rx Allergies/Adverse Reactions: Allergies Allergy/AdvReac Type Severity Reaction Status Date / Time No Known Allergies Allergy Verified 08/18/16 22:21 - Medications Medications: Current Medications Diphenhydramine HCl (Benadryl) 25 mg IVP Q6 PRN PRN Reason: Itching / Pruritus Enoxaparin Sodium (Lovenox) 40 mg SC DAILY [facility] PRN Reason: Protocol Last Admin: 08/29/16 08:42 Dose: 40 mg Lactated Ringer's (Lactated Ringer's) 1,000 mls @ 125 mls/hr IV .Q8H [facility] Last Admin: 08/29/16 04:00 Dose: Not Given Cefazolin Sodium 1 gm/ Sodium (Chloride) 100 mls @ 100 mls/hr IVPB Q12 [facility] Last Admin: 08/29/16 08:41 Dose: 100 mls/hr Metoprolol Tartrate (Lopressor) 50 mg PO BID [facility] Last Admin: 08/29/16 08:41 Dose: 50 mg Morphine Sulfate (Morphine) 4 mg IVP Q4 PRN PRN Reason: Pain, severe (8-10) Last Admin: 08/29/16 03:06 Dose: 4 mg Ondansetron HCl (Zofran Inj) 4 mg IVP Q8 PRN PRN Reason: Nausea/Vomiting Pantoprazole Sodium (Protonix Inj) 40 mg IVP DAILY [facility] Last Admin: 08/29/16 08:42 Dose: 40 mg Tramadol HCl (Ultram) 50 mg PO Q4 PRN PRN Reason: Pain, moderate (4-7) Last Admin: 08/29/16 09:49 Dose: 50 mg Physical Exam - Additional Findings Additional findings: Physical exam; Pt is slightly over weight, well oriented, in no acute distress neck; Supple, no adenopathy Chest; Clear, no rales or rhonchi Heart; RSR, no murmur Heart; Rsr no murmur Abd; Soft, no mass, no h.s megaly Results - Vital Signs Recent Vital Signs: Last Vital Signs Temp 97.8 F 08/29/16 07:29 Pulse 81 08/29/16 08:41 Resp 20 08/29/16 07:29 BP 154/78 H 08/29/16 08:41 Pulse Ox 98 08/29/16 07:29 - Labs Result Diagrams: 08/28/16 05:30 08/28/16 05:30 Assessment & Plan - Assessment and Plan (Free Text) Assessment: impression; Sigmoid colon cancer T3, N0 Plan: Plan; I have suggested to him 12 doses of FOLFOX. He wants to think about it chemo will start in 2-3 weeks after the surgery. - Date & Time Date: 08/29/16 Time: 11:38
[2016-08-29] MEDS ORDERED: Oxycodone/Acetaminophen 5/325 mg Tab PO PRN (14:07)
--- NOTE | 2016-08-30 10:01 | CP.PCM.DIS ---
Provider - Provider Date of Admission: 08/23/16 16:33 Attending physician: Delvin Zamorano MD Primary care physician: Delvin Zamorano MD Consults: Ajit Flynn Time Spent in preparation of Discharge (in minutes): 50 Diagnosis - Discharge Diagnosis (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 Hospital Course - Lab Results Lab Results: Most Recent Lab Values WBC 6.4 K/uL (4.8-10.8) 08/28/16 05:30 RBC 3.63 Mil/uL (4.40-5.90) L 08/28/16 05:30 Hgb 9.0 g/dL (12.0-18.0) L 08/28/16 05:30 Hct 27.7 % (35.0-51.0) L 08/28/16 05:30 MCV 76.4 fl (80.0-94.0) L 08/28/16 05:30 MCH 24.7 pg (27.0-31.0) L 08/28/16 05:30 MCHC 32.4 g/dL (33.0-37.0) L 08/28/16 05:30 RDW 16.6 % (11.5-14.5) H 08/28/16 05:30 Plt Count 190 K/uL (130-400) 08/28/16 05:30 MPV 9.6 fl (7.2-11.7) 08/28/16 05:30 Neut % (Auto) 69.9 % (50.0-75.0) 08/28/16 05:30 Lymph % (Auto) 15.8 % (20.0-40.0) L 08/28/16 05:30 Ransom % (Auto) 11.0 % (0.0-10.0) H 08/28/16 05:30 Eos % (Auto) 2.9 % (0.0-4.0) 08/28/16 05:30 Baso % (Auto) 0.4 % (0.0-2.0) 08/28/16 05:30 Neut # 4.5 K/uL (1.8-7.0) 08/28/16 05:30 Lymph # 1.0 K/uL (1.0-4.3) 08/28/16 05:30 Ransom # 0.7 K/uL (0.0-0.8) 08/28/16 05:30 Eos # 0.2 K/uL (0.0-0.7) 08/28/16 05:30 Baso # 0.0 K/uL (0.0-0.2) 08/28/16 05:30 Neutrophils % (Manual) 87 % (42-75) H 08/24/16 18:30 Band Neutrophils % 2 % (0-2) 08/24/16 18:30 Lymphocytes % (Manual) 6 % (20-50) L 08/24/16 18:30 Monocytes % (Manual) 4 % (0-10) 08/24/16 18:30 Eosinophils % (Manual) 1 % (0-7) 08/24/16 18:30 Platelet Estimate Normal (NORMAL) 08/24/16 18:30 Hypochromasia (manual) Slight 08/24/16 18:30 Anisocytosis (manual) Slight 08/24/16 18:30 PT 15.2 Seconds (9.8-13.1) H 08/23/16 16:10 INR 1.3 (0.9-1.2) H 08/23/16 16:10 APTT 24.0 Seconds (25.6-37.1) L 08/23/16 16:10 Sodium 137 mmol/l (132-148) 08/28/16 05:30 Potassium 3.3 MMOL/L (3.6-5.0) L 08/28/16 05:30 Chloride 103 mmol/L (98-107) 08/28/16 05:30 Carbon Dioxide 31 mmol/L (22-30) H 08/28/16 05:30 Anion Gap 6 (10-20) L 08/28/16 05:30 BUN 12 mg/dl (9-20) 08/28/16 05:30 Creatinine 0.7 mg/dL (0.8-1.5) L 08/28/16 05:30 Est GFR ( Amer) > 60 08/28/16 05:30 Est GFR (Non-Af Amer) > 60 08/28/16 05:30 Random Glucose 93 mg/dL (75-110) 08/28/16 05:30 Calcium 8.5 mg/dL (8.4-10.2) 08/28/16 05:30 Total Bilirubin 1.3 mg/dl (0.2-1.3) 08/28/16 05:30 AST 28 U/L (17-59) 08/28/16 05:30 ALT 18 U/L (21-72) L D 08/28/16 05:30 Alkaline Phosphatase 52 U/L (38-126) 08/28/16 05:30 Troponin I 0.0160 ng/mL (0.00-0.120) 08/23/16 17:30 Total Protein 5.9 G/DL (6.3-8.2) L 08/28/16 05:30 Albumin 2.8 g/dL (3.5-5.0) L 08/28/16 05:30 Globulin 3.0 gm/dL (2.2-3.9) 08/28/16 05:30 Albumin/Globulin Ratio 0.9 (1.0-2.1) L 08/28/16 05:30 Carcinoembryonic Ag 5.3 ng/mL (0-3.0) H 08/29/16 10:50 Blood Type O POSITIVE 08/23/16 16:15 Antibody Screen Negative 08/23/16 16:15 Crossmatch See Detail 08/23/16 16:15 BBK History Checked Patient has bt 08/23/16 16:15 - Hospital Course Hospital Course: 81 y/o w/m admitted for surgery for mass at Sigmoid colon Surgery 08/24 Adenocarcinoma Sigmoid colon Diverting colostomy - Date & Time of H&P Date of H&P: 08/30/16 Time of H&P: 10:00 Discharge Exam - Head Exam Head Exam: ATRAUMATIC, NORMAL INSPECTION, NORMOCEPHALIC Discharge Plan - Follow Up Plan Instructions: Colectomy (DC), Colorectal Polyps (DC), Colostomy Creation (DC) Additional Instructions: patient cleared for discharge to TCU today by Dr.Costomiris nieto. PT/OT Referrals: Delvin Zamorano MD [Primary Care Provider] -
--- NOTE | 2016-09-03 09:02 | OP ---
PROCEDURE DATE: 08/24/2016 PREOPERATIVE DIAGNOSIS: Colorectal carcinoma. POSTOPERATIVE DIAGNOSIS: Large sigmoid tumor. PROCEDURE: Sigmoid resection with transverse colostomy. SURGEON: Josef Moran MD. CUSTOMER ENGAGEMENT REPRESENTATIVE: Dr. Garrison. TYPE OF ANESTHESIA: General endotracheal. OPERATIVE FINDINGS: Large sigmoid tumor which was abutting the bladder and stuck, although not visibly infiltrating the bladder. INDICATIONS: This is an 80-year-old male seen in the office the day before this procedure for anemia and colorectal cancer diagnosed on colonoscopy. The patient clinically showed signs of almost total colonic obstruction and after discussing at length, we admitted him to do an emergent resection. DESCRIPTION OF PROCEDURE: After obtaining the informed consent, the patient was taken to the operating room. After time-out was obtained, an induction of general endotracheal anesthesia was obtained. Kumar catheter inserted. The abdomen was prepped and draped in the usual manner. The abdomen was entered through a modest midline incision from the umbilicus to the pubis. At this point, entering the abdominal cavity using hemocautery, a Bookwalter retractor was used to retract the wall and the small bowel. First, a full laparotomy did not reveal any gross pathology at the level of the liver or of hollow viscus. There was a mass in the pelvic region, and we isolated it to be at the level of the sigmoid. This mass was stuck anteriorly to the bladder and careful dissection was done to detach it. At this point, we had enough room being that this mass was in the proximal sigmoid. Dissection at approximately 8 cm proximal to the tumor, the colon was divided using a MALLORY 75. The left colon was mobilized all the way up to the splenic flexure using hemocautery and detaching the peritoneal reflection. We continued dissecting down using the harmonic scalpel unveiling both gutters visualizing both ureters and then approximately 6 cm distal to the tumor, the distal sigmoid was divided using a MALLORY 75. The mesocolon was then detached using the harmonic scalpel close to the root of the mesentery. This was sent out for pathological examination. There was enough room and we have mobilized the proximal colon enough to accept [id number] functional end-to-end anastomosis. This was done by placing multiple fine sutures of silk making a colotomy on both sides and firing the MALLORY 75 for the colon colotomy. It was obvious that there was significant amount of stool because of the history of almost total obstruction. So, at this point, the colon colotomy was closed with a TA 60 and the colon colotomy was reinforced using fine chromic sutures. Because of the anastomosis was done on an unprepped bowel, I elected to do a blowhole colostomy. This was done by making a lateral incision in the right upper quadrant grabbing the proximal transverse using two Babcocks. The pelvis now was irrigated and the area where the bladder was involved with the tumor, multiple clips were placed for the possibility of any further radiation therapy. At this point, the abdomen was closed using heavy PDS in a running fashion. The skin was stapled. The blowhole was now matured using fine chromic sutures. A dressing was applied. The patient tolerated the procedure very well and was transferred to the recovery room in good general status. Josef Moran MD
== END 2016-08-29 15:51 | DRG 330 ==
LOC: H.ER 15:33 → H.ERHOLD 16:33 → H.MEDSURG1 20:43
PROVIDERS: ADMIT Internal Medicine Cardiovascular Disease; ATTEND Internal Medicine Cardiovascular Disease
PROC: 0D1L0Z4 Bypass Transverse Colon to Cutaneous, Open Approach (ICD-10-PCS; 2016-08-24)
PROC: 0DTN0ZZ Resection of Sigmoid Colon, Open Approach (ICD-10-PCS; 2016-08-24)
PROC: 30233N1 Transfusion of Nonautologous Red Blood Cells into Peripheral Vein, Percutaneous Approach (ICD-10-PCS; principal; 2016-08-24 08:00)
DX: C18.7 Malignant neoplasm of sigmoid colon (principal); D62 Acute posthemorrhagic anemia; K56.60 Unspecified intestinal obstruction; J44.9 Chronic obstructive pulmonary disease, unspecified; K62.5 Hemorrhage of anus and rectum; I10 Essential (primary) hypertension; F32.9 Major depressive disorder, single episode, unspecified; Z90.49 Acquired absence of other specified parts of digestive tract; Z93.3 Colostomy status; Z95.1 Presence of aortocoronary bypass graft; Z95.2 Presence of prosthetic heart valve

== ENCOUNTER 2016-08-29 11:30 | Inpatient (IN) | payer OTHER ==
[2016-08-29 15:49] VITALS: BMI 32.5
[2016-08-29] MEDS: ceFAZolin 1 GM in Sodium Chloride 0.9% 100 ML IVPB SCH (21:50)
[2016-08-30] MEDS: Morphine 15 mg SR Tab PO SCH ×3 (00:36→17:17)
[2016-08-30] MEDS: ceFAZolin 1 GM in Sodium Chloride 0.9% 100 ML IVPB SCH ×2 (09:15→21:24)
[2016-08-30] MEDS: Enoxaparin 40 mg Syringe SC SCH (09:16)
--- NOTE | 2016-08-30 09:16 | CP.PCM.PN ---
Subjective - Date & Time of Evaluation Date of Evaluation: 08/30/16 Time of Evaluation: 09:14 - Subjective Subjective: Pt is still c/o severe pain in the abdomen. He will talk to his family re the chemotherapy. Will get a lifeport placed prior to chemo. Objective - Vital Signs/Intake and Output Vital Signs (last 24 hours): Temp Pulse Resp BP Pulse Ox 97.9 F 73 20 121/55 L 99 08/30/16 07:56 08/30/16 07:56 08/30/16 07:56 08/30/16 07:56 08/30/16 07:56 - Medications Medications: Current Medications Enoxaparin Sodium (Lovenox) 40 mg SC DAILY [facility] PRN Reason: Protocol Cefazolin Sodium 1 gm/ Sodium (Chloride) 100 mls @ 100 mls/hr IVPB Q12 [facility] Last Admin: 08/29/16 21:50 Dose: 100 mls/hr Metoprolol Tartrate (Lopressor) 50 mg PO BID [facility] Last Admin: 08/29/16 17:13 Dose: 50 mg Morphine Sulfate (Morphine Extended Release Tab) 15 mg PO Q8 [facility] Last Admin: 08/30/16 00:36 Dose: 15 mg Ondansetron HCl (Zofran Inj) 4 mg IVP Q8 PRN PRN Reason: Nausea/Vomiting Last Admin: 08/29/16 23:45 Dose: 4 mg Oxycodone/Acetaminophen (Percocet 5/325 Mg Tab) 1 tab PO Q4 PRN PRN Reason: Pain, severe (8-10) Stop: 09/01/16 22:35 Pantoprazole Sodium (Protonix Inj) 40 mg IVP DAILY [facility] Tramadol HCl (Ultram) 50 mg PO Q4 PRN PRN Reason: Pain, moderate (4-7) Last Admin: 08/29/16 17:15 Dose: 50 mg
--- NOTE | 2016-08-30 10:25 | CP.PCM.HP ---
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 CLBBB Laminectomy L5 04/06/06 Pt has been seen by DR Guido Flynn who suggests Chemotherapy pt is deciding whether to have Chemo Present on Admission - Present on Admission Any Indicators Present on Admission: No Past Patient History - Past Medical History & Family History Past Medical History?: Yes - Past Social History Smoking Status: Former Smoker - CARDIAC Hx Cardiac Disorders: Yes Hx Hypertension: Yes Other/Comment: CABG w/ AVR 07/23/09 mosaic porcine value - PULMONARY Hx Chronic Obstructive Pulmonary Disease (COPD): Yes - NEUROLOGICAL Hx Neurological Disorder: No - HEENT Hx HEENT Problems: Yes Other/Comment: eyeglasses - RENAL Hx Chronic Kidney Disease: No Hx Dialysis: No - ENDOCRINE/METABOLIC Hx Endocrine Disorders: No - HEMATOLOGICAL/ONCOLOGICAL Hx Blood Disorders: Yes Hx AIDS: No Hx Anemia: Yes (2nd to rectal bleeding) Hx Human Immunodeficiency Virus (HIV): No - INTEGUMENTARY Hx Dermatological Problems: No - MUSCULOSKELETAL/RHEUMATOLOGICAL Hx Falls: No - GASTROINTESTINAL Hx Gastrointestinal Disorders: No - GENITOURINARY/GYNECOLOGICAL Hx Genitourinary Disorders: No - PSYCHIATRIC Hx Psychophysiologic Disorder: No Hx Substance Use: No - SURGICAL HISTORY Hx Cholecystectomy: Yes Hx Coronary Artery Bypass Graft: Yes Other/Comment: laminectomy l5 04/06/06 - ANESTHESIA Hx Anesthesia: Yes Hx Anesthesia Reactions: No Hx Malignant Hyperthermia: No Meds Allergies/Adverse Reactions: Allergies Allergy/AdvReac Type Severity Reaction Status Date / Time No Known Allergies Allergy Verified 08/29/16 15:48 Physical Exam - Head Exam Head Exam: NORMAL INSPECTION - Eye Exam Eye Exam: Normal appearance Pupil Exam: NORMAL ACCOMODATION - ENT Exam ENT Exam: Normal Exam - Neck Exam Neck exam: Positive for: Normal Inspection - Respiratory Exam Respiratory Exam: NORMAL BREATHING PATTERN - Cardiovascular Exam Cardiovascular Exam: REGULAR RHYTHM Results - Vital Signs Recent Vital Signs: Last Vital Signs Temp 97.9 F 08/30/16 07:56 Pulse 70 08/30/16 09:16 Resp 20 08/30/16 07:56 BP 121/55 L 08/30/16 09:16 Pulse Ox 99 08/30/16 07:56 Assessment & Plan (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
--- NOTE | 2016-08-30 10:38 | CP.PCM.PN ---
<Jayda Krishna - Last Filed: 08/30/16 10:42> Subjective - Date & Time of Evaluation Date of Evaluation: 08/30/16 Time of Evaluation: 07:00 - Subjective Subjective: GENERAL SURGERY PROGRESS NOTE FOR DR. ABBOTT Patient seen and examined with Dr. Abbott at bedside in the TCU. Patient reports some abdominal pain. His pain is being managed with PO morphine and percocet as per pain management. He had some nausea last night after morphine and vomited once. He was given Zofran and his symptoms resolved. He is tolerating his regular diet. He has small amount of stool in ostomy bag. Objective - Vital Signs/Intake and Output Vital Signs (last 24 hours): Temp Pulse Resp BP Pulse Ox 97.9 F 70 20 121/55 L 99 08/30/16 07:56 08/30/16 09:16 08/30/16 07:56 08/30/16 09:16 08/30/16 07:56 - Medications Medications: Current Medications Enoxaparin Sodium (Lovenox) 40 mg SC DAILY [facility] PRN Reason: Protocol Last Admin: 08/30/16 09:16 Dose: 40 mg Cefazolin Sodium 1 gm/ Sodium (Chloride) 100 mls @ 100 mls/hr IVPB Q12 [facility] Last Admin: 08/30/16 09:15 Dose: 100 mls/hr Meclizine HCl (Antivert) 12.5 mg PO BID PRN PRN Reason: Dizziness Metoprolol Tartrate (Lopressor) 50 mg PO BID [facility] Last Admin: 08/30/16 09:16 Dose: 50 mg Morphine Sulfate (Morphine Extended Release Tab) 15 mg PO Q8 [facility] Last Admin: 08/30/16 09:14 Dose: 15 mg Ondansetron HCl (Zofran Inj) 4 mg IVP Q8 PRN PRN Reason: Nausea/Vomiting Last Admin: 08/29/16 23:45 Dose: 4 mg Oxycodone/Acetaminophen (Percocet 5/325 Mg Tab) 1 tab PO Q4 PRN PRN Reason: Pain, severe (8-10) Stop: 09/01/16 22:35 Pantoprazole Sodium (Protonix Inj) 40 mg IVP DAILY [facility] Last Admin: 08/30/16 09:17 Dose: 40 mg Tramadol HCl (Ultram) 50 mg PO Q4 PRN PRN Reason: Pain, moderate (4-7) Last Admin: 08/29/16 17:15 Dose: 50 mg - Constitutional Appears: Non-toxic, No Acute Distress - Respiratory Exam Respiratory Exam: NORMAL BREATHING PATTERN. absent: Respiratory Distress - Cardiovascular Exam Cardiovascular Exam: +S1, +S2. absent: Tachycardia - GI/Abdominal Exam GI & Abdominal Exam: Soft, Tenderness (mild tenderness around incision). absent : Distended, Firm, Guarding, Rigid Additional comments: santos in place over abdomen stool in colostomy bag - Neurological Exam Neurological Exam: Alert, Awake, Oriented x3 - Psychiatric Exam Psychiatric exam: Normal Affect, Normal Mood - Skin Skin Exam: Dry, Normal Color, Warm Assessment and Plan - Assessment and Plan (Free Text) Assessment: 81yo M with sigmoid mass now s/p distal sigmoid resection with transverse colostomy POD#6 - Pain being controlled via PO Morphine and Percocet as per pain management - Tolerating diet - Ostomy functioning properly - Will monitor for any more vomiting - Discussed plan with Dr. Scar Krishna PGY-3 <Angel Abbott - Last Filed: 08/30/16 10:52> Subjective - Subjective Subjective: Patient was seen and examined at the bedside. Agree with resident's note above Objective - Vital Signs/Intake and Output Vital Signs (last 24 hours): Temp Pulse Resp BP Pulse Ox 97.9 F 70 20 121/55 L 99 08/30/16 07:56 08/30/16 09:16 08/30/16 07:56 08/30/16 09:16 08/30/16 07:56 - Medications Medications: Current Medications Enoxaparin Sodium (Lovenox) 40 mg SC DAILY [facility] PRN Reason: Protocol Last Admin: 08/30/16 09:16 Dose: 40 mg Cefazolin Sodium 1 gm/ Sodium (Chloride) 100 mls @ 100 mls/hr IVPB Q12 [facility] Last Admin: 08/30/16 09:15 Dose: 100 mls/hr Meclizine HCl (Antivert) 12.5 mg PO BID PRN PRN Reason: Dizziness Metoprolol Tartrate (Lopressor) 50 mg PO BID [facility] Last Admin: 08/30/16 09:16 Dose: 50 mg Morphine Sulfate (Morphine Extended Release Tab) 15 mg PO Q8 [facility] Last Admin: 08/30/16 09:14 Dose: 15 mg Ondansetron HCl (Zofran Inj) 4 mg IVP Q8 PRN PRN Reason: Nausea/Vomiting Last Admin: 08/29/16 23:45 Dose: 4 mg Oxycodone/Acetaminophen (Percocet 5/325 Mg Tab) 1 tab PO Q4 PRN PRN Reason: Pain, severe (8-10) Stop: 09/01/16 22:35 Pantoprazole Sodium (Protonix Inj) 40 mg IVP DAILY [facility] Last Admin: 08/30/16 09:17 Dose: 40 mg Tramadol HCl (Ultram) 50 mg PO Q4 PRN PRN Reason: Pain, moderate (4-7) Last Admin: 08/29/16 17:15 Dose: 50 mg
[2016-08-30] MEDS: Oxycodone/Acetaminophen 5/325 mg Tab PO PRN ×2 (13:57→20:54)
--- NOTE | 2016-08-30 13:58 | CP.PCM.CON ---
History of Present Illness - History of Present Illness History of Present Illness: Dr Ramos Pain consultation on Quentin Watson, born 1935 who has been admitted to [facility] TCU following a sigmoidectomy and colosotmy secondary to sigmoid mass. T3N0. Post op abdominal pain. 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 - PULMONARY Hx Chronic Obstructive Pulmonary Disease (COPD): Yes - NEUROLOGICAL Hx Neurological Disorder: No - HEENT Hx HEENT Problems: Yes Other/Comment: eyeglasses - RENAL Hx Chronic Kidney Disease: No Hx Dialysis: No - ENDOCRINE/METABOLIC Hx Endocrine Disorders: No - HEMATOLOGICAL/ONCOLOGICAL Hx Blood Disorders: Yes Hx AIDS: No Hx Anemia: Yes (2nd to rectal bleeding) Hx Human Immunodeficiency Virus (HIV): No - INTEGUMENTARY Hx Dermatological Problems: No - MUSCULOSKELETAL/RHEUMATOLOGICAL Hx Falls: No - GASTROINTESTINAL Hx Gastrointestinal Disorders: No - GENITOURINARY/GYNECOLOGICAL Hx Genitourinary Disorders: No - PSYCHIATRIC Hx Psychophysiologic Disorder: No Hx Substance Use: No - SURGICAL HISTORY Hx Cholecystectomy: Yes Hx Coronary Artery Bypass Graft: Yes Other/Comment: laminectomy l5 04/06/06 - ANESTHESIA Hx Anesthesia: Yes Hx Anesthesia Reactions: No Hx Malignant Hyperthermia: No Meds Allergies/Adverse Reactions: Allergies Allergy/AdvReac Type Severity Reaction Status Date / Time No Known Allergies Allergy Verified 08/29/16 15:48 - Medications Medications: Current Medications Enoxaparin Sodium (Lovenox) 40 mg SC DAILY [facility] PRN Reason: Protocol Last Admin: 08/30/16 09:16 Dose: 40 mg Cefazolin Sodium 1 gm/ Sodium (Chloride) 100 mls @ 100 mls/hr IVPB Q12 [facility] Last Admin: 08/30/16 09:15 Dose: 100 mls/hr Meclizine HCl (Antivert) 12.5 mg PO BID PRN PRN Reason: Dizziness Last Admin: 08/30/16 13:24 Dose: 12.5 mg Metoprolol Tartrate (Lopressor) 50 mg PO BID [facility] Last Admin: 08/30/16 09:16 Dose: 50 mg Morphine Sulfate (Morphine Extended Release Tab) 15 mg PO Q8 [facility] Last Admin: 08/30/16 09:14 Dose: 15 mg Ondansetron HCl (Zofran Inj) 4 mg IVP Q8 PRN PRN Reason: Nausea/Vomiting Last Admin: 08/29/16 23:45 Dose: 4 mg Oxycodone/Acetaminophen (Percocet 5/325 Mg Tab) 1 tab PO Q4 PRN PRN Reason: Pain, severe (8-10) Stop: 09/01/16 22:35 Pantoprazole Sodium (Protonix Inj) 40 mg IVP DAILY [facility] Last Admin: 08/30/16 09:17 Dose: 40 mg Tramadol HCl (Ultram) 50 mg PO Q4 PRN PRN Reason: Pain, moderate (4-7) Last Admin: 08/29/16 17:15 Dose: 50 mg Physical Exam - Constitutional Appears: In Acute Distress (but controlled. pain comes in waves) - Head Exam Head Exam: ATRAUMATIC, NORMAL INSPECTION, NORMOCEPHALIC - Eye Exam Eye Exam: EOMI - ENT Exam ENT Exam: Mucous Membranes Moist - Respiratory Exam Respiratory Exam: NORMAL BREATHING PATTERN - Cardiovascular Exam Cardiovascular Exam: REGULAR RHYTHM - GI/Abdominal Exam GI & Abdominal Exam: Tenderness (mild, incision line with santos and some inferior erythema) Results - Vital Signs Recent Vital Signs: Last Vital Signs Temp 97.9 F 08/30/16 07:56 Pulse 70 08/30/16 09:16 Resp 20 08/30/16 07:56 BP 121/55 L 08/30/16 09:16 Pulse Ox 99 08/30/16 07:56 Assessment & Plan - Assessment and Plan (Free Text) Assessment: Pain is controlled at the current time and I will follow up the medications I have prescribed continue local incisional care teach colostomy care as well
[2016-08-31] MEDS: Morphine 15 mg SR Tab PO SCH ×3 (00:31→18:07)
[2016-08-31 07:19] LABS: BLOOD UREA NITROGEN 8 mg/dl (9-20); GFR AFRICAN-AMERICAN > 60; GFR NON-AFRICAN AMERICAN > 60
[2016-08-31 08:00] LABS: BASO % 0.6 % (0.0-2.0); EOS # 0.1 K/uL (0.0-0.7); EOS % 1.8 % (0.0-4.0); HEMOGLOBIN 9.5 g/dL (12.0-18.0); MEAN CELL VOLUME 78.4 fl (80.0-94.0); MEAN CORPUSCULAR HEMOGLOBIN 24.4 pg (27.0-31.0); MEAN CORPUSCULAR HGB CONC 31.2 g/dL (33.0-37.0); MEAN PLATELET VOLUME 9.8 fl (7.2-11.7); MONO % 12.4 % (0.0-10.0); NEUT # 5.7 K/uL (1.8-7.0); NEUT % 72.2 % (50.0-75.0); RBC 3.87 Mil/uL (4.40-5.90); RED CELL DISTRIBUTION WIDTH 17.1 % (11.5-14.5); WHITE BLOOD COUNT 7.9 K/uL (4.8-10.8)
--- NOTE | 2016-08-31 08:04 | CP.PCM.PN ---
<Jayda Krishna - Last Filed: 08/31/16 10:50> Subjective - Date & Time of Evaluation Date of Evaluation: 08/31/16 Time of Evaluation: 07:00 - Subjective Subjective: GENERAL SURGERY PROGRESS NOTE FOR DR. VELASQUEZ Patient seen and examined with Dr. Velasquez and Dr. Garrison at bedside in the TCU. Patient reports some abdominal pain and feels dizzy. His pain is being managed with PO morphine and percocet as per pain management. He has not had any more vomiting. He isn't eating much because he doesn't have much of an appetite. He has small amount of stool in ostomy bag. He is getting PT. He is having small amount of serosanguinous drainage from inferior portion of incision. Objective - Vital Signs/Intake and Output Vital Signs (last 24 hours): Temp Pulse Resp BP Pulse Ox 97.7 F 57 L 20 110/57 L 99 08/30/16 21:18 08/30/16 21:18 08/30/16 21:18 08/30/16 21:18 08/30/16 21:18 - Medications Medications: Current Medications Enoxaparin Sodium (Lovenox) 40 mg SC DAILY [facility] PRN Reason: Protocol Last Admin: 08/30/16 09:16 Dose: 40 mg Cefazolin Sodium 1 gm/ Sodium (Chloride) 100 mls @ 100 mls/hr IVPB Q12 [facility] Last Admin: 08/30/16 21:24 Dose: 100 mls/hr Meclizine HCl (Antivert) 12.5 mg PO BID PRN PRN Reason: Dizziness Last Admin: 08/30/16 22:12 Dose: 12.5 mg Metoprolol Tartrate (Lopressor) 50 mg PO BID [facility] Last Admin: 08/30/16 17:18 Dose: 50 mg Morphine Sulfate (Morphine Extended Release Tab) 15 mg PO Q8 [facility] Last Admin: 08/31/16 00:31 Dose: 15 mg Ondansetron HCl (Zofran Inj) 4 mg IVP Q8 PRN PRN Reason: Nausea/Vomiting Last Admin: 08/29/16 23:45 Dose: 4 mg Oxycodone/Acetaminophen (Percocet 5/325 Mg Tab) 1 tab PO Q4 PRN PRN Reason: Pain, severe (8-10) Stop: 09/01/16 22:35 Last Admin: 08/30/16 20:54 Dose: 1 tab Pantoprazole Sodium (Protonix Inj) 40 mg IVP DAILY [facility] Last Admin: 08/30/16 09:17 Dose: 40 mg Tramadol HCl (Ultram) 50 mg PO Q4 PRN PRN Reason: Pain, moderate (4-7) Last Admin: 08/29/16 17:15 Dose: 50 mg - Labs Labs: 08/31/16 06:00 - Constitutional Appears: Non-toxic, No Acute Distress - Head Exam Head Exam: ATRAUMATIC, NORMAL INSPECTION - Eye Exam Eye Exam: EOMI - Respiratory Exam Respiratory Exam: NORMAL BREATHING PATTERN. absent: Respiratory Distress - Cardiovascular Exam Cardiovascular Exam: +S1, +S2 - GI/Abdominal Exam GI & Abdominal Exam: Soft, Tenderness (mild tenderness near incision). absent: Distended, Firm, Guarding, Rigid, Rebound Additional comments: [facility] in place Small amount of Serosanguinous drainage from inferior portion of incision Small amount of stool in colostomy bag - Neurological Exam Neurological Exam: Alert, Awake, Oriented x3 - Psychiatric Exam Psychiatric exam: Normal Affect, Normal Mood - Skin Skin Exam: Dry, Normal Color, Warm Assessment and Plan - Assessment and Plan (Free Text) Assessment: 81yo M with sigmoid mass now s/p distal sigmoid resection with transverse colostomy POD#7 - Pain being controlled via PO Morphine and Percocet as per pain management - Doing PT - Tolerating diet - Stool output into colostomy bag - Small amount of serosanguinous drainage from inferior portion of incision - normal in post operative period - Will need staple removal 2 weeks after surgery - Follow up with Dr. Moran in his office in 1 week for follow up and staple removal - Discussed plan with Dr. Velasquez and Dr. Bladimir Krishna PGY-3 <Angel Velasquez - Last Filed: 08/31/16 11:43> Subjective - Subjective Subjective: Patient was seen and examined at the bedside. Agree with resident's note above. Objective - Vital Signs/Intake and Output Vital Signs (last 24 hours): Temp Pulse Resp BP Pulse Ox 97.7 F 74 20 125/70 94 L 08/31/16 08:02 08/31/16 09:03 08/31/16 08:02 08/31/16 09:03 08/31/16 08:02 - Medications Medications: Current Medications Enoxaparin Sodium (Lovenox) 40 mg SC DAILY [facility] PRN Reason: Protocol Last Admin: 08/31/16 09:04 Dose: 40 mg Cefazolin Sodium 1 gm/ Sodium (Chloride) 100 mls @ 100 mls/hr IVPB Q12 [facility] Last Admin: 08/30/16 21:24 Dose: 100 mls/hr Meclizine HCl (Antivert) 12.5 mg PO BID PRN PRN Reason: Dizziness Last Admin: 08/31/16 09:05 Dose: 12.5 mg Metoprolol Tartrate (Lopressor) 50 mg PO BID [facility] Last Admin: 08/31/16 09:03 Dose: 50 mg Morphine Sulfate (Morphine Extended Release Tab) 15 mg PO Q8 [facility] Last Admin: 08/31/16 09:07 Dose: 15 mg Ondansetron HCl (Zofran Inj) 4 mg IVP Q8 PRN PRN Reason: Nausea/Vomiting Last Admin: 08/29/16 23:45 Dose: 4 mg Oxycodone/Acetaminophen (Percocet 5/325 Mg Tab) 1 tab PO Q4 PRN PRN Reason: Pain, severe (8-10) Stop: 09/01/16 22:35 Last Admin: 08/30/16 20:54 Dose: 1 tab Pantoprazole Sodium (Protonix Inj) 40 mg IVP DAILY [facility] Last Admin: 08/31/16 09:04 Dose: 40 mg Tramadol HCl (Ultram) 50 mg PO Q4 PRN PRN Reason: Pain, moderate (4-7) Last Admin: 08/29/16 17:15 Dose: 50 mg - Labs Labs: 08/31/16 06:00 08/31/16 06:00 Assessment and Plan - Assessment and Plan (Free Text) Plan: - No further general surgery intervention at present time - General surgery will sign off - Please re-consult as needed
[2016-08-31] MEDS: Enoxaparin 40 mg Syringe SC SCH (09:04)
--- NOTE | 2016-08-31 11:31 | CP.PCM.PN ---
Subjective - Date & Time of Evaluation Date of Evaluation: 08/31/16 Time of Evaluation: 10:00 - Subjective Subjective: Had PT today claims new meds help pain but leave him with fatigued feeling /and vertigo ( but vertigo has been a chronic problem with him for years) Surgical note apprec ++ Stools in colostomy bag Objective - Vital Signs/Intake and Output Vital Signs (last 24 hours): Temp Pulse Resp BP Pulse Ox 97.7 F 74 20 125/70 94 L 08/31/16 08:02 08/31/16 09:03 08/31/16 08:02 08/31/16 09:03 08/31/16 08:02 - Medications Medications: Current Medications Enoxaparin Sodium (Lovenox) 40 mg SC DAILY [facility] PRN Reason: Protocol Last Admin: 08/31/16 09:04 Dose: 40 mg Cefazolin Sodium 1 gm/ Sodium (Chloride) 100 mls @ 100 mls/hr IVPB Q12 [facility] Last Admin: 08/30/16 21:24 Dose: 100 mls/hr Meclizine HCl (Antivert) 12.5 mg PO BID PRN PRN Reason: Dizziness Last Admin: 08/31/16 09:05 Dose: 12.5 mg Metoprolol Tartrate (Lopressor) 50 mg PO BID [facility] Last Admin: 08/31/16 09:03 Dose: 50 mg Morphine Sulfate (Morphine Extended Release Tab) 15 mg PO Q8 [facility] Last Admin: 08/31/16 09:07 Dose: 15 mg Ondansetron HCl (Zofran Inj) 4 mg IVP Q8 PRN PRN Reason: Nausea/Vomiting Last Admin: 08/29/16 23:45 Dose: 4 mg Oxycodone/Acetaminophen (Percocet 5/325 Mg Tab) 1 tab PO Q4 PRN PRN Reason: Pain, severe (8-10) Stop: 09/01/16 22:35 Last Admin: 08/30/16 20:54 Dose: 1 tab Pantoprazole Sodium (Protonix Inj) 40 mg IVP DAILY [facility] Last Admin: 08/31/16 09:04 Dose: 40 mg Tramadol HCl (Ultram) 50 mg PO Q4 PRN PRN Reason: Pain, moderate (4-7) Last Admin: 08/29/16 17:15 Dose: 50 mg - Labs Labs: 08/31/16 06:00 08/31/16 06:00 Assessment and Plan (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
[2016-08-31] MEDS: Oxycodone/Acetaminophen 5/325 mg Tab PO PRN (13:06)
[2016-08-31] MEDS: ceFAZolin 1 GM in Sodium Chloride 0.9% 100 ML IVPB SCH (13:13)
[2016-08-31] MEDS: ceFAZolin 2 GM in Sodium Chloride 0.9% 100 ML IVPB SCH (18:06)
[2016-09-01] MEDS: Oxycodone/Acetaminophen 5/325 mg Tab PO PRN ×4 (00:09→23:07)
[2016-09-01] MEDS: ceFAZolin 2 GM in Sodium Chloride 0.9% 100 ML IVPB SCH ×2 (05:03→16:40)
[2016-09-01] MEDS: Enoxaparin 40 mg Syringe SC SCH (08:50)
--- NOTE | 2016-09-01 11:18 | CP.PCM.PN ---
Subjective - Date & Time of Evaluation Date of Evaluation: 09/01/16 Time of Evaluation: 10:00 - Subjective Subjective: Wound healing well small area of serous fluid draining at lower aspect c/o lower abdominal pain ambulates with PT Objective - Vital Signs/Intake and Output Vital Signs (last 24 hours): Temp Pulse Resp BP Pulse Ox 97.0 F L 78 20 153/69 H 99 09/01/16 08:46 09/01/16 08:51 09/01/16 08:46 09/01/16 08:51 09/01/16 08:46 - Medications Medications: Current Medications Docusate Sodium (Colace) 100 mg PO TID [facility] Last Admin: 09/01/16 08:50 Dose: 100 mg Enoxaparin Sodium (Lovenox) 40 mg SC DAILY [facility] PRN Reason: Protocol Last Admin: 09/01/16 08:50 Dose: 40 mg Cefazolin Sodium 2 gm/ Sodium (Chloride) 100 mls @ 100 mls/hr IVPB Q12@0500, 1700 [facility] Last Admin: 09/01/16 05:03 Dose: 100 mls/hr Meclizine HCl (Antivert) 12.5 mg PO BID PRN PRN Reason: Dizziness Last Admin: 09/01/16 08:51 Dose: 12.5 mg Metoprolol Tartrate (Lopressor) 50 mg PO BID [facility] Last Admin: 09/01/16 08:51 Dose: 50 mg Ondansetron HCl (Zofran Inj) 4 mg IVP Q8 PRN PRN Reason: Nausea/Vomiting Last Admin: 08/29/16 23:45 Dose: 4 mg Oxycodone/Acetaminophen (Percocet 5/325 Mg Tab) 1 tab PO Q4 PRN PRN Reason: Pain, severe (8-10) Stop: 09/01/16 22:35 Last Admin: 09/01/16 08:50 Dose: 1 tab Pantoprazole Sodium (Protonix Inj) 40 mg IVP DAILY [facility] Last Admin: 09/01/16 08:51 Dose: 40 mg Tramadol HCl (Ultram) 50 mg PO Q4 PRN PRN Reason: Pain, moderate (4-7) Last Admin: 08/29/16 17:15 Dose: 50 mg - Labs Labs: 08/31/16 06:00 08/31/16 06:00 Assessment and Plan (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
--- NOTE | 2016-09-01 18:01 | CP.PCM.PN ---
Subjective - Date & Time of Evaluation Date of Evaluation: 09/01/16 Time of Evaluation: 18:00 - Subjective Subjective: Patient seen sitting up in room much less cognitive/dizzy problems now that off the morphine abdomen still with santos and most inferior aspect is still red and there is some exudate colostomy doing well continue current care pain tx with percocet Objective - Vital Signs/Intake and Output Vital Signs (last 24 hours): Temp Pulse Resp BP Pulse Ox 98.1 F 61 20 123/63 98 09/01/16 16:19 09/01/16 16:38 09/01/16 16:19 09/01/16 16:38 09/01/16 16:19 - Medications Medications: Current Medications Docusate Sodium (Colace) 100 mg PO TID [facility] Last Admin: 09/01/16 16:38 Dose: 100 mg Enoxaparin Sodium (Lovenox) 40 mg SC DAILY [facility] PRN Reason: Protocol Last Admin: 09/01/16 08:50 Dose: 40 mg Cefazolin Sodium 2 gm/ Sodium (Chloride) 100 mls @ 100 mls/hr IVPB Q12@0500, 1700 [facility] Last Admin: 09/01/16 16:40 Dose: 100 mls/hr Meclizine HCl (Antivert) 12.5 mg PO BID PRN PRN Reason: Dizziness Last Admin: 09/01/16 08:51 Dose: 12.5 mg Metoprolol Tartrate (Lopressor) 50 mg PO BID [facility] Last Admin: 09/01/16 16:38 Dose: 50 mg Ondansetron HCl (Zofran Inj) 4 mg IVP Q8 PRN PRN Reason: Nausea/Vomiting Last Admin: 08/29/16 23:45 Dose: 4 mg Oxycodone/Acetaminophen (Percocet 5/325 Mg Tab) 1 tab PO Q4 PRN PRN Reason: Pain, severe (8-10) Stop: 09/01/16 22:35 Last Admin: 09/01/16 12:46 Dose: 1 tab Pantoprazole Sodium (Protonix Inj) 40 mg IVP DAILY [facility] Last Admin: 09/01/16 08:51 Dose: 40 mg Tramadol HCl (Ultram) 50 mg PO Q4 PRN PRN Reason: Pain, moderate (4-7) Last Admin: 07/24/17 17:15 Dose: 50 mg - Labs Labs: 08/31/16 06:00 08/31/16 06:00
[2016-09-02] MEDS: ceFAZolin 2 GM in Sodium Chloride 0.9% 100 ML IVPB SCH ×2 (04:53→16:40)
[2016-09-02] MEDS: Oxycodone/Acetaminophen 5/325 mg Tab PO PRN ×3 (04:59→20:02)
[2016-09-02] MEDS: Enoxaparin 40 mg Syringe SC SCH (08:05)
--- NOTE | 2016-09-02 12:17 | CP.PCM.PN ---
Subjective - Date & Time of Evaluation Date of Evaluation: 09/02/16 Time of Evaluation: 10:00 - Subjective Subjective: Had PT this AM walks well with assistance Still has lower abdominal pains...but slowly getting less Colostomy functioning well also having BM rectally Objective - Vital Signs/Intake and Output Vital Signs (last 24 hours): Temp Pulse Resp BP Pulse Ox 98.4 F 62 20 133/69 100 09/02/16 08:14 09/02/16 08:14 09/02/16 08:14 09/02/16 08:14 09/02/16 08:14 - Medications Medications: Current Medications Docusate Sodium (Colace) 100 mg PO TID [facility] Last Admin: 09/02/16 08:06 Dose: 100 mg Cefazolin Sodium 2 gm/ Sodium (Chloride) 100 mls @ 100 mls/hr IVPB Q12@0500, 1700 [facility] Last Admin: 09/02/16 04:53 Dose: 100 mls/hr Meclizine HCl (Antivert) 12.5 mg PO BID PRN PRN Reason: Dizziness Last Admin: 09/01/16 22:11 Dose: 12.5 mg Metoprolol Tartrate (Lopressor) 50 mg PO BID [facility] Last Admin: 09/02/16 08:06 Dose: 50 mg Ondansetron HCl (Zofran Inj) 4 mg IVP Q8 PRN PRN Reason: Nausea/Vomiting Last Admin: 08/29/16 23:45 Dose: 4 mg Oxycodone/Acetaminophen (Percocet 5/325 Mg Tab) 1 tab PO Q4 PRN PRN Reason: Pain, severe (8-10) Stop: 09/04/16 22:54 Last Admin: 09/02/16 08:05 Dose: 1 tab Pantoprazole Sodium (Protonix Inj) 40 mg IVP DAILY [facility] Last Admin: 09/02/16 08:07 Dose: 40 mg Tramadol HCl (Ultram) 50 mg PO Q4 PRN PRN Reason: Pain, moderate (4-7) Last Admin: 08/29/16 17:15 Dose: 50 mg - Labs Labs: 08/31/16 06:00 08/31/16 06:00 Assessment and Plan (1) Carcinoma of sigmoid colon Assessment & Plan: s/p Surgery POD# 9 Status: Acute (2) Essential (primary) hypertension Status: Acute (3) Hx of CABG Status: Acute (4) S/P AVR (aortic valve replacement) Status: Acute
[2016-09-03] MEDS: Oxycodone/Acetaminophen 5/325 mg Tab PO PRN ×2 (01:55→08:54)
[2016-09-03] MEDS: ceFAZolin 2 GM in Sodium Chloride 0.9% 100 ML IVPB SCH ×2 (05:19→17:19)
--- NOTE | 2016-09-03 12:27 | CP.PCM.PN ---
Subjective - Date & Time of Evaluation Date of Evaluation: 09/03/16 Time of Evaluation: 12:05 - Subjective Subjective: Had a mildly restless night Bowels are still irregular, appetite poor Suprapubic discomfort persists No chills or fever Able to get in and out of bed unassisted Participates in rehab activities (reports easy fatiguability) Vital signs stable Objective - Vital Signs/Intake and Output Vital Signs (last 24 hours): Temp Pulse Resp BP Pulse Ox 97.7 F 64 20 151/78 H 100 09/03/16 08:07 09/03/16 08:54 09/03/16 08:07 09/03/16 08:54 09/03/16 08:07 - Medications Medications: Current Medications Docusate Sodium (Colace) 100 mg PO TID [facility] Last Admin: 09/03/16 08:55 Dose: 100 mg Cefazolin Sodium 2 gm/ Sodium (Chloride) 100 mls @ 100 mls/hr IVPB Q12@0500, 1700 [facility] Last Admin: 09/03/16 05:19 Dose: 100 mls/hr Meclizine HCl (Antivert) 12.5 mg PO BID PRN PRN Reason: Dizziness Last Admin: 09/03/16 08:55 Dose: 12.5 mg Metoprolol Tartrate (Lopressor) 50 mg PO BID [facility] Last Admin: 09/03/16 08:54 Dose: 50 mg Ondansetron HCl (Zofran Inj) 4 mg IVP Q8 PRN PRN Reason: Nausea/Vomiting Last Admin: 08/29/16 23:45 Dose: 4 mg Oxycodone/Acetaminophen (Percocet 5/325 Mg Tab) 1 tab PO Q4 PRN PRN Reason: Pain, severe (8-10) Stop: 09/04/16 22:54 Last Admin: 09/03/16 08:54 Dose: 1 tab Pantoprazole Sodium (Protonix Inj) 40 mg IVP DAILY [facility] Last Admin: 09/03/16 08:55 Dose: 40 mg Tramadol HCl (Ultram) 50 mg PO Q4 PRN PRN Reason: Pain, moderate (4-7) Last Admin: 08/29/16 17:15 Dose: 50 mg - Labs Labs: 08/31/16 06:00 08/31/16 06:00
[2016-09-04] MEDS: ceFAZolin 2 GM in Sodium Chloride 0.9% 100 ML IVPB SCH ×2 (04:58→17:17)
[2016-09-05] MEDS: ceFAZolin 2 GM in Sodium Chloride 0.9% 100 ML IVPB SCH (04:27)
[2016-09-05] MEDS ORDERED: Pantoprazole 40 mg EC Tab PO SCH (09:00)
--- NOTE | 2016-09-05 10:44 | CP.PCM.PN ---
Subjective - Date & Time of Evaluation Date of Evaluation: 09/05/16 Time of Evaluation: 10:30 - Subjective Subjective: Has aches and pains of recent Sx Making slow progress as far as PT is concerned Fairly stable with a walker Eats sparingly due to poor appetite Colostomy training progressing slowly Will start on Fe replacement Objective - Vital Signs/Intake and Output Vital Signs (last 24 hours): Temp Pulse Resp BP Pulse Ox 97.2 F L 63 20 151/75 H 98 09/05/16 08:25 09/05/16 08:25 09/05/16 08:25 09/05/16 08:25 09/05/16 08:25 - Medications Medications: Current Medications Docusate Sodium (Colace) 100 mg PO TID [facility] Last Admin: 09/05/16 08:10 Dose: 100 mg Ferrous Sulfate (Feosol) 325 mg PO BID [facility] Meclizine HCl (Antivert) 12.5 mg PO BID PRN PRN Reason: Dizziness Last Admin: 09/04/16 08:45 Dose: 12.5 mg Metoprolol Tartrate (Lopressor) 50 mg PO BID [facility] Last Admin: 09/05/16 08:10 Dose: 50 mg Ondansetron HCl (Zofran Inj) 4 mg IVP Q8 PRN PRN Reason: Nausea/Vomiting Last Admin: 08/29/16 23:45 Dose: 4 mg Pantoprazole Sodium (Protonix Ec Tab) 40 mg PO DAILY [facility] Tramadol HCl (Ultram) 50 mg PO Q4 PRN PRN Reason: Pain, moderate (4-7) Last Admin: 08/29/16 17:15 Dose: 50 mg - Labs Labs: 08/31/16 06:00 08/31/16 06:00
--- NOTE | 2016-09-05 17:35 | CP.PCM.PN ---
Subjective - Date & Time of Evaluation Date of Evaluation: 09/05/16 Time of Evaluation: 17:35 - Subjective Subjective: Patient seen in room looks much better colostomy intact some mild inferior incision drainage pain is better controlled continue current care Objective - Vital Signs/Intake and Output Vital Signs (last 24 hours): Temp Pulse Resp BP Pulse Ox 98.1 F 61 20 124/60 99 09/05/16 16:44 09/05/16 16:44 09/05/16 16:44 09/05/16 16:44 09/05/16 16:44 - Medications Medications: Current Medications Docusate Sodium (Colace) 100 mg PO TID [facility] Last Admin: 09/05/16 17:01 Dose: 100 mg Ferrous Sulfate (Feosol) 325 mg PO BID [facility] Last Admin: 09/05/16 17:01 Dose: 325 mg Meclizine HCl (Antivert) 12.5 mg PO BID PRN PRN Reason: Dizziness Last Admin: 09/05/16 12:33 Dose: 12.5 mg Metoprolol Tartrate (Lopressor) 50 mg PO BID [facility] Last Admin: 09/05/16 17:01 Dose: 50 mg Ondansetron HCl (Zofran Inj) 4 mg IVP Q8 PRN PRN Reason: Nausea/Vomiting Last Admin: 08/29/16 23:45 Dose: 4 mg Pantoprazole Sodium (Protonix Ec Tab) 40 mg PO DAILY [facility] [place] Tramadol HCl (Ultram) 50 mg PO Q4 PRN PRN Reason: Pain, moderate (4-7) Last Admin: 08/29/16 17:15 Dose: 50 mg - Labs Labs: 08/31/16 06:00 08/31/16 06:00
[2016-09-06] MEDS: Pantoprazole 40 mg EC Tab PO SCH (08:31)
[2016-09-07] MEDS: Pantoprazole 40 mg EC Tab PO SCH (09:00)
--- NOTE | 2016-09-07 10:31 | CP.PCM.PN ---
Subjective - Date & Time of Evaluation Date of Evaluation: 09/07/16 Time of Evaluation: 10:15 - Subjective Subjective: Making good progress with PT and colostomy care Appetite better Vital signs stable Present Rx to continue Objective - Vital Signs/Intake and Output Vital Signs (last 24 hours): Temp Pulse Resp BP Pulse Ox 97.9 F 60 20 125/62 99 09/07/16 08:10 09/07/16 08:59 09/07/16 08:10 09/07/16 08:59 09/07/16 08:10 - Medications Medications: Current Medications Docusate Sodium (Colace) 100 mg PO TID [facility] Last Admin: 09/07/16 08:58 Dose: 100 mg Ferrous Sulfate (Feosol) 325 mg PO BID [facility] Last Admin: 09/07/16 08:59 Dose: 325 mg Meclizine HCl (Antivert) 12.5 mg PO BID PRN PRN Reason: Dizziness Last Admin: 09/07/16 08:58 Dose: 12.5 mg Metoprolol Tartrate (Lopressor) 50 mg PO BID [facility] Last Admin: 09/07/16 08:59 Dose: 50 mg Ondansetron HCl (Zofran Inj) 4 mg IVP Q8 PRN PRN Reason: Nausea/Vomiting Last Admin: 08/29/16 23:45 Dose: 4 mg Pantoprazole Sodium (Protonix Ec Tab) 40 mg PO DAILY [facility] Last Admin: 09/07/16 09:00 Dose: 40 mg Tramadol HCl (Ultram) 50 mg PO Q4 PRN PRN Reason: Pain, moderate (4-7) Last Admin: 08/29/16 17:15 Dose: 50 mg - Labs Labs: 08/31/16 06:00 08/31/16 06:00
[2016-09-08] MEDS: Pantoprazole 40 mg EC Tab PO SCH (08:48)
--- NOTE | 2016-09-08 09:24 | CP.PCM.PN ---
Subjective - Date & Time of Evaluation Date of Evaluation: 09/08/16 Time of Evaluation: 09:10 - Subjective Subjective: Appetite much improved Doing better at PT Feels comfortable about stoma care Mild serous discharge from the surgical wound No foul smell or induration Afebrile BP 116/72 mm Hg Abd soft, no guarding or distention Objective - Vital Signs/Intake and Output Vital Signs (last 24 hours): Temp Pulse Resp BP Pulse Ox 97.8 F 61 20 100/72 99 09/08/16 07:55 09/08/16 08:48 09/08/16 07:55 09/08/16 08:48 09/08/16 07:55 - Medications Medications: Current Medications Docusate Sodium (Colace) 100 mg PO TID [facility] Last Admin: 09/08/16 08:47 Dose: 100 mg Ferrous Sulfate (Feosol) 325 mg PO BID [facility] Last Admin: 09/08/16 08:47 Dose: 325 mg Meclizine HCl (Antivert) 12.5 mg PO BID PRN PRN Reason: Dizziness Last Admin: 09/08/16 08:47 Dose: 12.5 mg Metoprolol Tartrate (Lopressor) 50 mg PO BID [facility] Last Admin: 09/08/16 08:48 Dose: 50 mg Ondansetron HCl (Zofran Inj) 4 mg IVP Q8 PRN PRN Reason: Nausea/Vomiting Last Admin: 08/29/16 23:45 Dose: 4 mg Pantoprazole Sodium (Protonix Ec Tab) 40 mg PO DAILY [facility] Last Admin: 09/08/16 08:48 Dose: 40 mg Tramadol HCl (Ultram) 50 mg PO Q4 PRN PRN Reason: Pain, moderate (4-7) Last Admin: 08/29/16 17:15 Dose: 50 mg - Labs Labs: 08/31/16 06:00 08/31/16 06:00
--- NOTE | 2016-09-08 13:36 | CP.PCM.PN ---
Subjective - Date & Time of Evaluation Date of Evaluation: 09/08/16 Time of Evaluation: 13:00 - Subjective Subjective: Patient was seen and examined at the bedside. Objective - Vital Signs/Intake and Output Vital Signs (last 24 hours): Temp Pulse Resp BP Pulse Ox 97.8 F 61 20 100/72 99 09/08/16 10:00 09/08/16 10:00 09/08/16 10:00 09/08/16 10:00 09/08/16 10:00 - Medications Medications: Current Medications Docusate Sodium (Colace) 100 mg PO TID [facility] Last Admin: 09/08/16 08:47 Dose: 100 mg Ferrous Sulfate (Feosol) 325 mg PO BID [facility] Last Admin: 09/08/16 08:47 Dose: 325 mg Meclizine HCl (Antivert) 12.5 mg PO BID PRN PRN Reason: Dizziness Last Admin: 09/08/16 08:47 Dose: 12.5 mg Metoprolol Tartrate (Lopressor) 50 mg PO BID [facility] Last Admin: 09/08/16 08:48 Dose: 50 mg Ondansetron HCl (Zofran Inj) 4 mg IVP Q8 PRN PRN Reason: Nausea/Vomiting Last Admin: 08/29/16 23:45 Dose: 4 mg Pantoprazole Sodium (Protonix Ec Tab) 40 mg PO DAILY [facility] Last Admin: 09/08/16 08:48 Dose: 40 mg Tramadol HCl (Ultram) 50 mg PO Q4 PRN PRN Reason: Pain, moderate (4-7) Last Admin: 08/29/16 17:15 Dose: 50 mg - Labs Labs: 08/31/16 06:00 08/31/16 06:00 - Constitutional Appears: Well, Non-toxic, No Acute Distress - Head Exam Head Exam: ATRAUMATIC, NORMAL INSPECTION, NORMOCEPHALIC - Eye Exam Eye Exam: EOMI, Normal appearance, PERRL Pupil Exam: NORMAL ACCOMODATION, PERRL - ENT Exam ENT Exam: Mucous Membranes Moist, Normal Exam - Neck Exam Neck Exam: Full ROM, Normal Inspection - Respiratory Exam Respiratory Exam: NORMAL BREATHING PATTERN - Cardiovascular Exam Cardiovascular Exam: +S1, +S2 - GI/Abdominal Exam GI & Abdominal Exam: Soft, Normal Bowel Sounds Additional comments: NT, ND, BS+, no rebound, no guarding, incision clean, no erythema, very minimal drainage from the lower pole of the wound, santos in place, colostomy in place with stool in the ostomy bag - Rectal Exam Rectal Exam: Deferred - Extremities Exam Extremities Exam: Full ROM, Normal Inspection - Neurological Exam Neurological Exam: Alert, Awake, Oriented x3 - Psychiatric Exam Psychiatric exam: Normal Affect, Normal Mood - Skin Skin Exam: Dry, Intact, Normal Color, Warm Assessment and Plan - Assessment and Plan (Free Text) Assessment: 81 y.o. male s/p Exp.lap Plan: - Continue diet - Pain control - Physical therapy - Continue care as per medical team - No general surgery intervention at present time - Please re-consult as needed
--- NOTE | 2016-09-08 14:42 | CP.PCM.PN ---
Subjective - Date & Time of Evaluation Date of Evaluation: 09/08/16 Time of Evaluation: 14:41 - Subjective Subjective: Patient seen in room doing well no longer draining on the incision + colostomy doing well pain is well controlled continue current care likely discharge 09/10/16 Objective - Vital Signs/Intake and Output Vital Signs (last 24 hours): Temp Pulse Resp BP Pulse Ox 97.8 F 61 20 100/72 99 09/08/16 10:00 09/08/16 10:00 09/08/16 10:00 09/08/16 10:00 09/08/16 10:00 - Medications Medications: Current Medications Docusate Sodium (Colace) 100 mg PO TID [facility] Last Admin: 09/08/16 14:21 Dose: Not Given Ferrous Sulfate (Feosol) 325 mg PO BID [facility] Last Admin: 09/08/16 08:47 Dose: 325 mg Meclizine HCl (Antivert) 12.5 mg PO BID PRN PRN Reason: Dizziness Last Admin: 09/08/16 08:47 Dose: 12.5 mg Metoprolol Tartrate (Lopressor) 50 mg PO BID [facility] Last Admin: 09/08/16 08:48 Dose: 50 mg Ondansetron HCl (Zofran Inj) 4 mg IVP Q8 PRN PRN Reason: Nausea/Vomiting Last Admin: 08/29/16 23:45 Dose: 4 mg Pantoprazole Sodium (Protonix Ec Tab) 40 mg PO DAILY [facility] Last Admin: 09/08/16 08:48 Dose: 40 mg Tramadol HCl (Ultram) 50 mg PO Q4 PRN PRN Reason: Pain, moderate (4-7) Last Admin: 08/29/16 17:15 Dose: 50 mg - Labs Labs: 08/31/16 06:00 08/31/16 06:00
[2016-09-09] MEDS: Pantoprazole 40 mg EC Tab PO SCH (08:48)
--- NOTE | 2016-09-09 10:03 | CP.PCM.PN ---
Subjective - Date & Time of Evaluation Date of Evaluation: 09/09/16 Time of Evaluation: 09:50 - Subjective Subjective: Seen during PT Walks with little discomfort Walked up and down the block yesterday Feels confident in managing his colostomy bag Appetite much better/sleeps much better Tentatively planned D/C tomorrow. Pt may leave unit to walk out doors with therapist Objective - Vital Signs/Intake and Output Vital Signs (last 24 hours): Temp Pulse Resp BP Pulse Ox 97.9 F 61 20 117/52 L 96 09/09/16 08:22 09/09/16 08:48 09/09/16 08:22 09/09/16 08:48 09/09/16 08:22 - Medications Medications: Current Medications Docusate Sodium (Colace) 100 mg PO TID [facility] Last Admin: 09/09/16 08:47 Dose: 100 mg Ferrous Sulfate (Feosol) 325 mg PO BID [facility] Last Admin: 09/09/16 08:48 Dose: 325 mg Meclizine HCl (Antivert) 12.5 mg PO BID PRN PRN Reason: Dizziness Last Admin: 09/09/16 08:48 Dose: 12.5 mg Metoprolol Tartrate (Lopressor) 50 mg PO BID [facility] Last Admin: 09/09/16 08:48 Dose: 50 mg Ondansetron HCl (Zofran Inj) 4 mg IVP Q8 PRN PRN Reason: Nausea/Vomiting Last Admin: 08/29/16 23:45 Dose: 4 mg Pantoprazole Sodium (Protonix Ec Tab) 40 mg PO DAILY [facility] Last Admin: 09/09/16 08:48 Dose: 40 mg - Labs Labs: 08/31/16 06:00 08/31/16 06:00
[2016-09-10 07:51] VITALS: BP 122/55; PULSE 61; RESP 20; TEMP 97.7; O2SAT 100
[2016-09-10] MEDS: Pantoprazole 40 mg EC Tab PO SCH (08:54)
--- NOTE | 2016-09-10 11:02 | CP.PCM.PN ---
Subjective - Date & Time of Evaluation Date of Evaluation: 09/10/16 Time of Evaluation: 10:50 - Subjective Subjective: Feels well Vital signs stable Surgical wound clean Surgical clips will be removed in Dr. Moran's office (Pt will make appt) Going home today Objective - Vital Signs/Intake and Output Vital Signs (last 24 hours): Temp Pulse Resp BP Pulse Ox 97.7 F 61 20 122/55 L 100 09/10/16 10:00 09/10/16 10:00 09/10/16 10:00 09/10/16 10:00 09/10/16 10:00 - Medications Medications: Current Medications Docusate Sodium (Colace) 100 mg PO TID [facility] Last Admin: 09/10/16 08:54 Dose: 100 mg Ferrous Sulfate (Feosol) 325 mg PO BID [facility] Last Admin: 09/10/16 08:55 Dose: 325 mg Meclizine HCl (Antivert) 12.5 mg PO BID PRN PRN Reason: Dizziness Last Admin: 09/10/16 08:55 Dose: 12.5 mg Metoprolol Tartrate (Lopressor) 50 mg PO BID [facility] Last Admin: 09/10/16 08:55 Dose: 50 mg Ondansetron HCl (Zofran Inj) 4 mg IVP Q8 PRN PRN Reason: Nausea/Vomiting Last Admin: 08/29/16 23:45 Dose: 4 mg Pantoprazole Sodium (Protonix Ec Tab) 40 mg PO DAILY [facility] Last Admin: 09/10/16 08:54 Dose: 40 mg - Labs Labs: 08/31/16 06:00 08/31/16 06:00
== END 2016-09-10 12:30 | disposition home or self-care (01) | DRG 949 ==
LOC: H.TCU 15:53
PROVIDERS: ADMIT Internal Medicine Cardiovascular Disease; ATTEND Internal Medicine Cardiovascular Disease
PROC: F08Z4ZZ Home Management Treatment (ICD-10-PCS; principal; 2016-08-29)
PROC: F07Z9FZ Gait Training/Functional Ambulation Treatment using Assistive, Adaptive, Supportive or Protective Equipment (ICD-10-PCS; 2016-08-29)
PROC: F07L6FZ Therapeutic Exercise Treatment of Musculoskeletal System - Lower Back / Lower Extremity using Assistive, Adaptive, Supportive or Protective Equipment (ICD-10-PCS; 2016-08-29)
DX: Z48.3 Aftercare following surgery for neoplasm (principal); C18.7 Malignant neoplasm of sigmoid colon; J44.9 Chronic obstructive pulmonary disease, unspecified; Z93.3 Colostomy status; I10 Essential (primary) hypertension; Z95.1 Presence of aortocoronary bypass graft; Z95.2 Presence of prosthetic heart valve; I25.10 Atherosclerotic heart disease of native coronary artery without angina pectoris; R42 Dizziness and giddiness; R10.9 Unspecified abdominal pain

== ENCOUNTER 2017-05-10 07:45 | Day surgery (SDC) | payer MEDICARE, OTHER ==
[2017-05-09 13:31] VITALS: BMI 31.1
[2017-05-10] MEDS ORDERED: Lactated Ringer's 1,000 ML IV ONE (09:21)
[2017-05-10] MEDS ORDERED: Phenylephrine 10 mg/ml Inj ONE (09:25)
[2017-05-10] MEDS ORDERED: Propofol 10 mg/ml Inj (20 ML) ONE (09:25)
[2017-05-10] MEDS ORDERED: ePHEDrine 50 mg/ml Inj ONE (09:25)
[2017-05-10] MEDS ORDERED: Lidocaine Hydrochloride 1% 0 ML ONE (09:42)
[2017-05-10] MEDS ORDERED: Bupivacaine 0.5% Inj(30mL) ONE (09:42)
[2017-05-10] MEDS ORDERED: Lidocaine 1% w Epi 1:100,000 Inj ONE (09:59)
[2017-05-10] MEDS ORDERED: Midazolam 2 MG/2 ML VIAL ONE (10:08)
[2017-05-10] MEDS ORDERED: ceFAZolin 2 GM in Sodium Chloride 0.9% 100 ML IVPB ONE (10:15)
--- NOTE | 2017-05-10 10:37 | PCM.SURG1 ---
Surgeon's Initial Post Op Note - Surgeon's Notes Surgeon: moraima Biology Specimen Technician: none Type of Anesthesia: IV Sedation Anesthesia Administered By: francine Pre-Operative Diagnosis: colon ca Operative Findings: no complication Post-Operative Diagnosis: same Operation Performed: removal of port Specimen/Specimens Removed: life port Estimated Blood Loss: EBL {In ML}: 0 Blood Products Given: N/A Drains Used: No Drains Post-Op Condition: Good Date of Surgery/Procedure: 05/10/17 Time of Surgery/Procedure: 10:00
--- NOTE | 2017-05-10 10:39 | CP.SDSHP ---
Same Day Surgery H & P - Allergies Allergies: Allergies No Known Allergies Allergy (Verified 04/24/17 10:26) - Physical Exam Vital Signs: Vital Signs 05/10/17 08:57 Temperature 98 F Pulse Rate 49 L Respiratory 18 Rate Blood Pressure 129/67 O2 Sat by Pulse 98 Oximetry Short Stay Discharge - Short Stay Discharge Admitting Diagnosis/Reason for Visit: C18.7 Referrals: Delvin Zamorano MD [Primary Care Provider] - Follow-up: 2 weeks
[2017-05-10 13:38] VITALS: RESP 18
[2017-05-10 13:46] VITALS: BP 146/67; PULSE 51; TEMP 97.8; O2SAT 97
--- NOTE | 2017-05-12 18:26 | CARD ---
APPROVED REPORT EKG Measurement Heart [id number] IA [id number] <Conclusion> Sinus bradycardia Left bundle branch block Abnormal ECG
== END 2017-05-10 14:35 | disposition home or self-care (01) ==
LOC: H.OPSURG 07:45
PROVIDERS: ATTEND Surgery
DX: C18.7 Malignant neoplasm of sigmoid colon (principal); I25.10 Atherosclerotic heart disease of native coronary artery without angina pectoris; I10 Essential (primary) hypertension; I44.7 Left bundle-branch block, unspecified
CPT/HCPCS: 36589; 88300; 88304; 93005; J0690; J2001; J2250; J2270; J2370; J2405; J2704; J3010; J7030; J7120

== ENCOUNTER 2018-03-22 17:36 | Inpatient (IN) | payer MEDICARE, OTHER ==
[2018-03-22 17:36] VITALS: BMI 31.1
[2018-03-22 19:26] LABS: BASO % 0.4 % (0.0-2.0); HEMOGLOBIN 9.9 g/dL (12.0-18.0); LYMPH # 0.7 K/uL (1.0-4.3); LYMPH % 7.5 % (20.0-40.0); MEAN CELL VOLUME 76.1 fl (80.0-94.0); MEAN CORPUSCULAR HEMOGLOBIN 24.2 pg (27.0-31.0); MEAN CORPUSCULAR HGB CONC 31.8 g/dL (33.0-37.0); MONO # 0.8 K/uL (0.0-0.8); MONO % 8.7 % (0.0-10.0); NEUT # 7.5 K/uL (1.8-7.0); NEUT % 83.4 % (50.0-75.0); NRBC % 0.1 % (0.0-0.0); PLATELET COUNT 231 K/uL (130-400); RBC 4.07 Mil/uL (4.40-5.90); RED CELL DISTRIBUTION WIDTH 15.6 % (11.5-14.5)
--- NOTE | 2018-03-22 19:26 | ED PDOC ---
HPI: SOB/CHF/COPD Time Seen by Provider: 03/22/18 17:52 Chief Complaint (Nursing): Shortness Of Breath Chief Complaint (Provider): Shortness of breath and weakness History Per: Patient History/Exam Limitations: no limitations Onset/Duration Of Symptoms: Days (x2) Current Symptoms Are (Timing): Still Present Additional Complaint(s): 82 year old male presents to the ED with shortness of breath and weakness. For the last 2 days, patient has been having weakness, shaking chills, dry cough, and dyspnea especially with exertion. Denies fever. Reports episode of vomiting this morning that was "green stuff". Denies abdominal pain, chest pain, or leg swelling. She reports 2 days ago, she had episodes of hematuria that resolved but he continues to have frequency of urine and mild dysuria. Patient recently had a defibrillator placed. PMD: Shawn Sotelo Past Medical History Reviewed: Historical Data, Nursing Documentation, Vital Signs Vital Signs: Last Vital Signs Temp 100.6 F H 03/22/18 18:39 Pulse 91 H 03/22/18 17:50 Resp 13 03/22/18 17:50 BP 141/64 03/22/18 17:50 Pulse Ox 98 03/22/18 17:50 - Medical History PMH: Anemia, CAD, CHF, COPD, HTN Denies: HIV, Chronic Kidney Disease - Surgical History Surgical History: CABG, Cholecystectomy, Endoscopy, Pacemaker - Family History Family History: States: Unknown Family Hx - Home Medications Home Medications: Ambulatory Orders Medication Instructions Recorded Folic Acid 1 mg PO DAILY 03/22/18 Metoprolol Succinate XL [Toprol XL] 25 mg PO DAILY 03/22/18 RX: Atorvastatin [Lipitor] 40 mg PO DAILY 03/22/18 RX: amLODIPine [Norvasc] 5 mg PO DAILY 03/22/18 - Allergies Allergies/Adverse Reactions: Allergies Allergy/AdvReac Type Severity Reaction Status Date / Time No Known Allergies Allergy Verified 04/24/17 10:26 Review of Systems ROS Statement: Except As Marked, All Systems Reviewed And Found Negative (as per HPI otherwise negative) Constitutional: Positive for: Chills, Weakness Cardiovascular: Negative for: Chest Pain Respiratory: Positive for: Cough, Shortness of Breath, SOB with Exertion Gastrointestinal: Negative for: Abdominal Pain Genitourinary Male: Positive for: Dysuria, Frequency. Negative for: Hematuria Musculoskeletal: Negative for: Other (leg swelling) Physical Exam - Reviewed Nursing Documentation Reviewed: Yes Vital Signs Reviewed: Yes - Physical Exam Appears: Positive for: Well, No Acute Distress Head Exam: Positive for: ATRAUMATIC, NORMOCEPHALIC Skin: Positive for: Pallor Eye Exam: Positive for: EOMI, PERRL ENT: Negative for: Pharyngeal Erythema, Tonsillar Exudate Neck: Positive for: Painless ROM, Supple Cardiovascular/Chest: Positive for: Regular Rate, Rhythm, Murmur (Systolic ejection murmur) Respiratory: Positive for: Normal Breath Sounds (Clear to auscultation). Negative for: Rales, Rhonchi, Wheezing Gastrointestinal/Abdominal: Positive for: Soft. Negative for: Tenderness Back: Positive for: Normal Inspection. Negative for: Muscle Spasm Extremity: Positive for: Normal ROM. Negative for: Deformity Lymphatic: Negative for: Adenopathy Neurologic/Psych: Positive for: Alert. Negative for: Motor/Sensory Deficits - Laboratory Results Result Diagrams: 03/25/18 05:30 03/24/18 06:50 - ECG O2 Sat by Pulse Oximetry: 98 (RA) Pulse Ox Interpretation: Normal Medical Decision Making Medical Decision Making: Initial Impression: Shortness of breath,hematuria,fever Differential includes but not limited to pneumonia, sepsis, dehydration, electrolyte abnormality, CHF, influenza, viral syndrome, and UTI. Initial Plan: --Type and screen stat --ECG --B-type natriuretic peptide stat --CMP --Lact acid stat --Magnesium stat --Phosphorous stat --Troponin stat --CBC --PTT --Prothrombin time --Chest X-ray --Tylenol 975mg PO --Blood culture --Urine culture --Influenza A B stat --Urinalysis Labs demonstrate UTI. KYLE Flynn covering for PMD Costomiris. Advises hospitalization for IV antibiotics. Requests hospitalist service KYLE Saavedra Hospitalist. Scribe Attestation: Documented by Adama Raymond acting as a scribe for Siena Angel MD. Provider Scribe Attestation: All medical record entries made by the Scribe were at my direction and personally dictated by me. I have reviewed the chart and agree that the record accurately reflects my personal performance of the history, physical exam, medical decision making, and the department course for this patient. I have also personally directed, reviewed, and agree with the discharge instructions and disposition. Disposition - Clinical Impression Clinical Impression: UTI (urinary tract infection), Sepsis Counseled Patient/Family Regarding: Studies Performed, Diagnosis - Disposition Disposition Time: 20:00 Condition: FAIR - Pt Status Changed To: Hospital Disposition Of: Inpatient - Admit Certification Admit to Inpatient:: After my assessment, the patient will require hospitalization for at least two midnights. This is because of the severity of symptoms shown, intensity of services needed, and/or the medical risk in this patient being treated as an outpatient. - POA Present On Arrival: None
[2018-03-22 19:33] LABS: ALB/GLOB RATIO 1.2 (1.0-2.1); ALBUMIN 4.4 g/dL (3.5-5.0); ALT/SGPT 19 U/L (21-72); AST/SGOT 27 U/L (17-59); BLOOD UREA NITROGEN 21 mg/dl (9-20); CALCIUM 9.5 mg/dL (8.4-10.2); GFR NON-AFRICAN AMERICAN > 60
[2018-03-22 19:35] LABS: SQUAMOUS EPITHIAL < 1 /hpf (0-5); URINE BACTERIA OCC (<OCC); URINE BILIRUBIN NEGATIVE (NEGATIVE); URINE BLOOD MODERATE (NEGATIVE); URINE CLARITY TURBID (Clear); URINE COLOR YELLOW (YELLOW); URINE GLUCOSE (UA) NEG (NEGATIVE); URINE HYALINE CAST 0-2 /hpf (0-2); URINE LEUKOCYTE ESTERASE LARGE Leu/uL (Negative); URINE PROTEIN 100 mg/dL (NEGATIVE); URINE UROBILINOGEN 0.2-1.0 mg/dL (0.2-1.0); WBC CLUMPS MOD /hpf
[2018-03-22 19:36] LABS: INR 1.6; PROTHROMBIN TIME 18.4 Seconds (9.8-13.1)
[2018-03-22 19:38] LABS: PARTIAL THROMBOPLASTIN TIME 29.2 Seconds (25.6-37.1)
[2018-03-22 19:51] LABS: B-TYPE NATRIURETIC PEPTIDE 1020 pg/ml (0-900)
[2018-03-22 20:24] LABS: ANISOCYTOSIS MODERATE; BANDS 3 % (0-2); EOSINOPHIL 1 % (0-7); LYMPHOCYTE 9 % (20-50); MONOCYTE 8 % (0-10); NEUTROPHIL 79 % (42-75); PLATELET ESTIMATE NORMAL (NORMAL); POIKILOCYTOSIS SLIGHT; TOTAL CELLS COUNTED 100
[2018-03-22 20:25] LABS: HYPOCHROMIC MODERATE; MICROCYTOSIS MODERATE; OVALOCYTES SLIGHT; POLYCHROMIC SLIGHT; TEARDROP CELLS SLIGHT
[2018-03-22] MEDS ORDERED: cefTRIAXone (Rocephin) 1 gm Inj ONE (21:09)
--- NOTE | 2018-03-22 22:27 | CP.PCM.HP ---
History of Present Illness - History of Present Illness History of Present Illness: 82 yo M with hx HTN, HLD, aortic valve replacement, recent pacemaker implantation (Feb 2017), admitted for UTI. Patient presented to ED after 2 days of dysuria, burning with urination, hematuria (since resolved), chills and feeling ill that did not get better. He states he vomited green NBNB vomit 3x in 4-5 min earlier today which finally prompted his ED visit; no further episodes of vomiting noted. Accompanied by son at bedside. Patient had recent pacemaker implantation at [facility] [place] Mar 01, 2018; states that prior to pacemaker he could not walk more than a few blocks without getting tired/short of breath but feels these symptoms have much improved in the last 3 weeks, however he has felt worse and attributes this to having chills. History obtained via interview with pt and son at bedside and past admissions. PMD: Dr. Zamorano Past Med Hx: Hypertension, dyslipidemia, colon ca, COPD, CLBBB, Past Surg hx: Pacemaker 02/2018, CABG w/Aortic Valve replacement 2009, colon resection 2016, laminectomy L5 2006 Social hx: former smoker for 10 yrs, quit in 1983, smoked 3/4 ppd; alcohol on special occ, no drug use Fam hx: NC Allergies: NKDA Medications: folic acid, amlodipine, atorvastatin, metoprolol Code status: full code NOK whitney Downey [phone] ED course: Vitals: initially afebrile but had fever up to 101.1 in ED; BP 141-64, HR 91, RR 13, O2 sat 98+ on RA UA: pos nitrate, large LE, 1000+ WBC CBC: no leukocytosis, anemia CMP mild elev UN Trop neg BNP 1020 Lactic acid 1.8 Neg flu Blood and urine cultures sent CXR Received: 975 mg tylenol 1 gm rocephin Present on Admission - Present on Admission Any Indicators Present on Admission: No Review of Systems - Constitutional Constitutional: Chills, Fever, Weakness - Cardiovascular Cardiovascular: absent: Chest Pain - Respiratory Respiratory: Cough, Dyspnea - Gastrointestinal Gastrointestinal: absent: Abdominal Pain - Genitourinary Genitourinary: Dysuria, Hematuria (now resolved). absent: Flank Pain - Musculoskeletal Musculoskeletal: absent: Arthralgias Past Patient History - Past Medical History & Family History Past Medical History?: Yes - Past Social History Smoking Status: Former Smoker Alcohol: Occasional Drugs: Denies - CARDIAC Hx Cardiac Disorders: Yes Hx Congestive Heart Failure: Yes Hx Hypertension: Yes Hx Pacemaker: Yes - PULMONARY Hx Chronic Obstructive Pulmonary Disease (COPD): Yes - NEUROLOGICAL Hx Neurological Disorder: Yes Hx Vertigo: Yes - HEENT Hx HEENT Problems: No Other/Comment: eyeglasses - RENAL Hx Chronic Kidney Disease: No - ENDOCRINE/METABOLIC Hx Endocrine Disorders: No - HEMATOLOGICAL/ONCOLOGICAL Hx Anemia: Yes Hx Human Immunodeficiency Virus (HIV): No - INTEGUMENTARY Hx Dermatological Problems: No - MUSCULOSKELETAL/RHEUMATOLOGICAL Hx Musculoskeletal Disorders: No Hx Falls: No - GASTROINTESTINAL Hx Gastrointestinal Disorders: No - GENITOURINARY/GYNECOLOGICAL Hx Genitourinary Disorders: No - PSYCHIATRIC Hx Psychophysiologic Disorder: No Hx Substance Use: No - SURGICAL HISTORY Hx Cholecystectomy: Yes Hx Coronary Artery Bypass Graft: Yes - ANESTHESIA Hx Anesthesia: Yes Hx Anesthesia Reactions: No Hx Malignant Hyperthermia: No Meds Allergies/Adverse Reactions: Allergies Allergy/AdvReac Type Severity Reaction Status Date / Time No Known Allergies Allergy Verified 04/24/17 10:26 Physical Exam - Constitutional Appears: No Acute Distress - Eye Exam Eye Exam: Normal appearance - ENT Exam ENT Exam: Mucous Membranes Moist - Neck Exam Neck exam: Positive for: Full Rom - Respiratory Exam Respiratory Exam: Clear to Auscultation Bilateral, NORMAL BREATHING PATTERN. absent: Wheezes, Respiratory Distress - Cardiovascular Exam Cardiovascular Exam: REGULAR RHYTHM, +S1, +S2 - GI/Abdominal Exam GI & Abdominal Exam: Normal Bowel Sounds, Soft. absent: Tenderness - Extremities Exam Extremities exam: Positive for: normal inspection. Negative for: calf tenderness, pedal edema - Back Exam Back exam: NORMAL INSPECTION - Neurological Exam Neurological exam: Alert, Oriented x3 - Psychiatric Exam Psychiatric exam: Normal Mood - Skin Skin Exam: Dry, Normal Color, Warm Additional comments: no evidence of infection in scar on R anterior chest from pacemaker insertion, well healing incision Results - Vital Signs Recent Vital Signs: Last Vital Signs Temp 100.6 F H 03/22/18 18:39 Pulse 91 H 03/22/18 17:50 Resp 13 03/22/18 17:50 BP 141/64 03/22/18 17:50 Pulse Ox 98 03/22/18 19:32 - Labs Result Diagrams: 03/22/18 19:16 03/22/18 19:16 Labs: Laboratory Results - last 24 hr 03/22/18 03/22/18 03/22/18 19:16 19:16 19:16 WBC 9.0 RBC 4.07 L Hgb 9.9 L D Hct 31.0 L MCV 76.1 L D MCH 24.2 L MCHC 31.8 L RDW 15.6 H Plt Count 231 MPV 10.0 Neut % (Auto) 83.4 H Lymph % (Auto) 7.5 L [place] % (Auto) 8.7 Eos % (Auto) 0.0 Baso % (Auto) 0.4 Neut # (Auto) 7.5 H Lymph # (Auto) 0.7 L [place] # (Auto) 0.8 Eos # (Auto) 0.0 Baso # (Auto) 0.0 Neutrophils % (Manual) 79 H Band Neutrophils % 3 H Lymphocytes % (Manual) 9 L Monocytes % (Manual) 8 Eosinophils % (Manual) 1 Platelet Estimate Normal Polychromasia Slight Hypochromasia (manual) Moderate Poikilocytosis (manual Slight Anisocytosis (manual) Moderate Microcytosis (manual) Moderate Tear Drop Cells Slight Ovalocytes Slight PT INR APTT Sodium 137 Potassium 3.7 Chloride 97 L Carbon Dioxide 26 Anion Gap 18 BUN 21 H Creatinine 1.1 Est GFR ( Amer) > 60 Est GFR (Non-Af Amer) > 60 Random Glucose 130 H Lactic Acid Calcium 9.5 Phosphorus 3.1 Magnesium 1.9 Total Bilirubin 1.7 H AST 27 ALT 19 L D Alkaline Phosphatase 76 Troponin I 0.0810 NT-Pro-B Natriuret Pep 1020 H Total Protein 7.9 Albumin 4.4 Globulin 3.5 Albumin/Globulin Ratio 1.2 Urine Color Urine Clarity Urine pH Ur Specific [place] Urine Protein Urine Glucose (UA) Urine Ketones Urine Blood Urine Nitrate Urine Bilirubin Urine Urobilinogen Ur Leukocyte Esterase Urine RBC (Auto) Urine WBC Clumps (Auto) Urine Microscopic WBC Ur Squamous Epith Cells Urine Bacteria Hyaline Casts Influenza Typ A,B (EIA) Negative for flu a/b Blood Type Antibody Screen BBK History Checked 03/22/18 03/22/18 03/22/18 19:16 19:16 19:16 WBC RBC Hgb Hct MCV MCH MCHC RDW Plt Count MPV Neut % (Auto) Lymph % (Auto) [place] % (Auto) Eos % (Auto) Baso % (Auto) Neut # (Auto) Lymph # (Auto) [place] # (Auto) Eos # (Auto) Baso # (Auto) Neutrophils % (Manual) Band Neutrophils % Lymphocytes % (Manual) Monocytes % (Manual) Eosinophils % (Manual) Platelet Estimate Polychromasia Hypochromasia (manual) Poikilocytosis (manual Anisocytosis (manual) Microcytosis (manual) Tear Drop Cells Ovalocytes PT 18.4 H INR 1.6 APTT 29.2 Sodium Potassium Chloride Carbon Dioxide Anion Gap BUN Creatinine Est GFR ( Amer) Est GFR (Non-Af Amer) Random Glucose Lactic Acid 1.8 Calcium Phosphorus Magnesium Total Bilirubin AST ALT Alkaline Phosphatase Troponin I NT-Pro-B Natriuret Pep Total Protein Albumin Globulin Albumin/Globulin Ratio Urine Color Urine Clarity Urine pH Ur Specific [place] Urine Protein Urine Glucose (UA) Urine Ketones Urine Blood Urine Nitrate Urine Bilirubin Urine Urobilinogen Ur Leukocyte Esterase Urine RBC (Auto) Urine WBC Clumps (Auto) Urine Microscopic WBC Ur Squamous Epith Cells Urine Bacteria Hyaline Casts Influenza Typ A,B (EIA) Blood Type O POSITIVE Antibody Screen Negative BBK History Checked Patient has bt 03/22/18 19:16 WBC RBC Hgb Hct MCV MCH MCHC RDW Plt Count MPV Neut % (Auto) Lymph % (Auto) [place] % (Auto) Eos % (Auto) Baso % (Auto) Neut # (Auto) Lymph # (Auto) [place] # (Auto) Eos # (Auto) Baso # (Auto) Neutrophils % (Manual) Band Neutrophils % Lymphocytes % (Manual) Monocytes % (Manual) Eosinophils % (Manual) Platelet Estimate Polychromasia Hypochromasia (manual) Poikilocytosis (manual Anisocytosis (manual) Microcytosis (manual) Tear Drop Cells Ovalocytes PT INR APTT Sodium Potassium Chloride Carbon Dioxide Anion Gap BUN Creatinine Est GFR ( Amer) Est GFR (Non-Af Amer) Random Glucose Lactic Acid Calcium Phosphorus Magnesium Total Bilirubin AST ALT Alkaline Phosphatase Troponin I NT-Pro-B Natriuret Pep Total Protein Albumin Globulin Albumin/Globulin Ratio Urine Color Yellow Urine Clarity Turbid Urine pH 5.0 Ur Specific [place] 1.014 Urine Protein 100 Urine Glucose (UA) Neg Urine Ketones Negative Urine Blood Moderate Urine Nitrate Positive H Urine Bilirubin Negative Urine Urobilinogen 0.2-1.0 Ur Leukocyte Esterase Large Urine RBC (Auto) 24 H Urine WBC Clumps (Auto) Mod H Urine Microscopic WBC 1010 H Ur Squamous Epith Cells < 1 Urine Bacteria Occ H Hyaline Casts 0-2 Influenza Typ A,B (EIA) Blood Type Antibody Screen BBK History Checked Assessment & Plan - Assessment and Plan (Free Text) Assessment: 82 yo M with hx HTN, HLD, aortic valve replacement, recent pacemaker implantation (Feb 2017), admitted for UTI. Plan: UTI - Continue with rocephin 1 gm daily - F/u urine culture and blood culture - Tylenol 650 mg PO Q4 for fever > 100.4 - CBC in am Nausea - Zofran 4mg Q6 hrs prn Recent hx pacemaker implantation - F/u blood cultures Hypertension - Resume home meds CAD - Resume atorvastatin Anemia - Has hx colon ca - Consider f/u and workup Diet - Heart Healthy DVT prophylaxis - SCD for now Pt seen/examined w/ Dr. Saavedra.
[2018-03-23 06:28] LABS: BASO % 0.4 % (0.0-2.0); HEMOGLOBIN 9.9 g/dL (12.0-18.0); LYMPH % 9.6 % (20.0-40.0); MEAN CELL VOLUME 76.5 fl (80.0-94.0); MEAN CORPUSCULAR HEMOGLOBIN 24.2 pg (27.0-31.0); MEAN CORPUSCULAR HGB CONC 31.7 g/dL (33.0-37.0); MEAN PLATELET VOLUME 9.9 fl (7.2-11.7); MONO # 1.6 K/uL (0.0-0.8); MONO % 14.8 % (0.0-10.0); NEUT % 75.2 % (50.0-75.0); NRBC % 0.1 % (0.0-0.0); RBC 4.09 Mil/uL (4.40-5.90); RED CELL DISTRIBUTION WIDTH 15.6 % (11.5-14.5); WHITE BLOOD COUNT 10.7 K/uL (4.8-10.8)
[2018-03-23 06:35] LABS: BLOOD UREA NITROGEN 22 mg/dl (9-20); CALCIUM 9.1 mg/dL (8.4-10.2); GFR NON-AFRICAN AMERICAN > 60
[2018-03-23] MEDS ORDERED: Enoxaparin 40 mg Syringe SC SCH (09:00)
[2018-03-23] MEDS: Metoprolol Succinate 25 mg XL Tab PO SCH (09:11)
--- NOTE | 2018-03-23 10:01 | CP.PCM.PN ---
<[place] - Last Filed: 03/23/18 10:55> Subjective - Date & Time of Evaluation Date of Evaluation: 03/23/18 Time of Evaluation: 09:50 - Subjective Subjective: Patient seen and examined this morning. Had fever of 102.6 F last night, Afebrile with stable vitals this morning. Reports he had chills last night but overall feeling better. Reports improved dysuria. +dry cough for few days but denies flank pain, chest pain, dyspnea or dizziness. Objective - Vital Signs/Intake and Output Vital Signs (last 24 hours): Temp Pulse Resp BP Pulse Ox 97.6 F 61 19 120/63 97 03/23/18 08:24 03/23/18 09:11 03/23/18 08:24 03/23/18 09:11 03/23/18 08:24 - Medications Medications: Current Medications Acetaminophen (Tylenol 325mg Tab) 650 mg PO Q4 PRN PRN Reason: Fever >100.4 F Last Admin: 03/22/18 23:38 Dose: 650 mg Amlodipine Besylate (Norvasc) 5 mg PO DAILY [facility] Last Admin: 03/23/18 09:11 Dose: 5 mg Atorvastatin Calcium (Lipitor) 40 mg PO DAILY [facility] Last Admin: 03/23/18 09:11 Dose: 40 mg Folic Acid (Folic Acid) 1 mg PO DAILY [facility] Last Admin: 03/23/18 09:10 Dose: 1 mg Ceftriaxone Sodium 1 gm/ (Sodium Chloride) 100 mls @ 100 mls/hr IVPB DAILY [facility]; Protocol Metoprolol Succinate (Toprol Xl) 25 mg PO DAILY [facility] Last Admin: 03/23/18 09:11 Dose: 25 mg Ondansetron HCl (Zofran Inj) 4 mg IVP Q6 PRN PRN Reason: Nausea/Vomiting Tamsulosin HCl (Flomax) 0.4 mg PO DAILY [facility] Last Admin: 03/23/18 09:10 Dose: 0.4 mg - Labs Labs: 03/23/18 05:50 03/23/18 05:50 PT 18.4 Seconds (9.8-13.1) H 03/22/18 19:16 INR 1.6 03/22/18 19:16 APTT 29.2 Seconds (25.6-37.1) 03/22/18 19:16 - Constitutional Appears: Non-toxic, No Acute Distress - Head Exam Head Exam: NORMAL INSPECTION - Eye Exam Eye Exam: Normal appearance - ENT Exam ENT Exam: Mucous Membranes Moist - Neck Exam Neck Exam: Normal Inspection. absent: Meningismus - Respiratory Exam Respiratory Exam: Clear to Ausculation Bilateral, NORMAL BREATHING PATTERN. absent: Rhonchi, Wheezes, Respiratory Distress - Cardiovascular Exam Cardiovascular Exam: REGULAR RHYTHM, +S1, +S2 - GI/Abdominal Exam GI & Abdominal Exam: Soft, Normal Bowel Sounds. absent: Tenderness - Extremities Exam Extremities Exam: Normal Inspection. absent: Calf Tenderness - Back Exam Back Exam: absent: CVA tenderness (L), CVA tenderness (R) - Neurological Exam Neurological Exam: Alert, Awake, Oriented x3 - Psychiatric Exam Psychiatric exam: Normal Affect, Normal Mood - Skin Skin Exam: Normal Color Assessment and Plan - Assessment and Plan (Free Text) Assessment: 82 year old Male with PMHx of HTN, HLD, aortic valve replacement, recent pacem hellen implantation (Feb 2017), admitted for Complicated Urinary Tract Infection Plan: Acute complicated UTI -Afebrile with stable vitals -Continue with rocephin 1 gm daily -ID consult -- Dr. Flood --f/u recommendation -Zofran 4mg Q6 hrs prn -F/u urine culture and blood culture -Tylenol 650 mg PO Q4 for fever > 100.4 -F/U am labs Recent hx pacemaker implantation - F/u blood cultures Hypertension - Resume home meds CAD - Resume atorvastatin Anemia - Has hx colon ca - Stable H&H 9.9/31.3 - Consider f/u and workup Diet - Heart Healthy DVT prophylaxis - Lovenox 40 mg sc Plan discussed with Dr. Jordan <Kasie Jordan - Last Filed: 03/24/18 16:39> Objective - Vital Signs/Intake and Output Vital Signs (last 24 hours): Temp Pulse Resp BP Pulse Ox 98.6 F 96 H 20 108/62 95 03/24/18 16:25 03/24/18 16:25 03/24/18 16:25 03/24/18 16:25 03/24/18 16:25 - Medications Medications: Current Medications Acetaminophen (Tylenol 325mg Tab) 650 mg PO Q4 PRN PRN Reason: Fever >100.4 F Last Admin: 03/24/18 01:31 Dose: 650 mg Amlodipine Besylate (Norvasc) 5 mg PO DAILY [facility] Last Admin: 03/24/18 08:40 Dose: 5 mg Atorvastatin Calcium (Lipitor) 40 mg PO DAILY [facility] Last Admin: 03/24/18 08:39 Dose: 40 mg Enoxaparin Sodium (Lovenox) 40 mg SC DAILY [facility]; Protocol Last Admin: 03/24/18 08:39 Dose: 40 mg Folic Acid (Folic Acid) 1 mg PO DAILY [facility] Last Admin: 03/24/18 08:39 Dose: 1 mg Daptomycin 540 mg/ Sodium (Chloride) 100 mls @ 100 mls/hr IV Q24H [facility]; Protocol Stop: 03/28/18 14:46 Last Admin: 03/24/18 13:45 Dose: 100 mls/hr Meropenem 1 gm/ Sodium (Chloride) 100 mls @ 100 mls/hr IVPB Q8 [facility]; Protocol Last Admin: 03/24/18 16:32 Dose: 100 mls/hr Metoprolol Succinate (Toprol Xl) 25 mg PO DAILY [facility] Last Admin: 03/24/18 08:40 Dose: 25 mg Ondansetron HCl (Zofran Inj) 4 mg IVP Q6 PRN PRN Reason: Nausea/Vomiting Tamsulosin HCl (Flomax) 0.4 mg PO DAILY [facility] Last Admin: 03/24/18 08:39 Dose: 0.4 mg - Labs Labs: 03/24/18 06:50 03/24/18 06:50 PT 18.4 Seconds (9.8-13.1) H 03/22/18 19:16 INR 1.6 03/22/18 19:16 APTT 29.2 Seconds (25.6-37.1) 03/22/18 19:16 Attending/Attestation - Attestation I have personally seen and examined this patient.: Yes I have fully participated in the care of the patient.: Yes I have reviewed all pertinent clinical information, including history, physical exam and plan: Yes Notes (Text): 03/24/18 16:39 agree with findings and plan as above.
--- NOTE | 2018-03-23 10:14 | CARD ---
APPROVED REPORT Date of service: 03/22/2018 EKG Measurement Heart [id number] <Conclusion> Atrial-sensed ventricular-paced rhythm Abnormal ECG
--- NOTE | 2018-03-23 11:51 | RAD ---
Date of service: 03/23/2018 HISTORY: cough COMPARISON: 03/22/2018 TECHNIQUE: Chest PA and lateral FINDINGS: LUNGS: No active pulmonary disease. PLEURA: Small left pleural effusion. No right pleural effusion. No pneumothorax. CARDIOVASCULAR: No aortic atherosclerotic calcification present. Normal cardiac size. Permanent pacemaker. Status post CABG. OSSEOUS STRUCTURES: No significant abnormalities. VISUALIZED UPPER ABDOMEN: Normal. OTHER FINDINGS: None. IMPRESSION: Small left pleural effusion. No other active disease.
--- NOTE | 2018-03-23 12:10 | CP.PCM.CON ---
History of Present Illness - History of Present Illness History of Present Illness: 82-year-old man with a history of coronary bypass graft surgery and aortic valve replacement in 2009 who required a dual-chamber pacemaker implant last month came into the hospital complaining of chills and fever accompanied by vomiting yesterday afternoon that required him to come to the emergency room. The patient had complained of hematuria for a couple of days and had given a urine sample for urine culture in the morning to rule out the possibility of urinary tract infection. He also reported dysuria for couple of days. Upon returning home the patient developed a feverish feeling with chills and vomiting. This required his coming to the emergency room her blood cultures were drawn urine cultures were drawn and the patient was started on intravenous antibiotics. Physical examination now shows an elderly man sitting comfortably in bed and breathes comfortably at 16 breaths/min and can carry on a conversation lying flat in bed. He was alert awake coherent and afebrile. He had a fever of 100.2 degrees at 2 AM last night. His heart rate was 60 bpm regular and his blood pressure was 120/70 mmHg. His jugular venous pressure was not elevated and there was no edema over his lower extremities. The pedal pulses were feeble but distinctly present. There were no carotid bruits. Scar of sternotomy was evident. The first and second heart sounds were distant but normal. There was an ejection systolic murmur in the aortic area. The second heart sound was well preserved. The pacemaker was then placed in the infraclavicular area. His electrocardiogram showed dual-chamber pacemaker activity. His lab data was noted. Blood and urine cultures are still awaited. Impression: Urinary tract infection possible bacteremia. History of aortic valve replacement and recent dual-chamber pacemaker implant. Stable coronary artery disease. History of hypertension. Blood cultures are still awaited to rule out the possibility of bacteremia. And ID evaluation has been requested to assess if he needs long-term parenteral antibiotic therapy given presence of aortic valve prosthesis and pacemaker. Past Patient History - Past Medical History & Family History Past Medical History?: Yes - Past Social History Smoking Status: Former Smoker Alcohol: Occasional Drugs: Denies - CARDIAC Hx Cardiac Disorders: Yes Hx Congestive Heart Failure: Yes Hx Hypertension: Yes Hx Pacemaker: Yes - PULMONARY Hx Chronic Obstructive Pulmonary Disease (COPD): Yes - NEUROLOGICAL Hx Neurological Disorder: Yes Hx Vertigo: Yes - HEENT Hx HEENT Problems: No Other/Comment: eyeglasses - RENAL Hx Chronic Kidney Disease: No - ENDOCRINE/METABOLIC Hx Endocrine Disorders: No - HEMATOLOGICAL/ONCOLOGICAL Hx Anemia: Yes Hx Human Immunodeficiency Virus (HIV): No - INTEGUMENTARY Hx Dermatological Problems: No - MUSCULOSKELETAL/RHEUMATOLOGICAL Hx Musculoskeletal Disorders: No Hx Falls: No - GASTROINTESTINAL Hx Gastrointestinal Disorders: No - GENITOURINARY/GYNECOLOGICAL Hx Genitourinary Disorders: No - PSYCHIATRIC Hx Psychophysiologic Disorder: No Hx Substance Use: No - SURGICAL HISTORY Hx Cholecystectomy: Yes Hx Coronary Artery Bypass Graft: Yes - ANESTHESIA Hx Anesthesia: Yes Hx Anesthesia Reactions: No Hx Malignant Hyperthermia: No Meds Allergies/Adverse Reactions: Allergies Allergy/AdvReac Type Severity Reaction Status Date / Time No Known Allergies Allergy Verified 04/24/17 10:26 - Medications Medications: Current Medications Acetaminophen (Tylenol 325mg Tab) 650 mg PO Q4 PRN PRN Reason: Fever >100.4 F Last Admin: 03/22/18 23:38 Dose: 650 mg Amlodipine Besylate (Norvasc) 5 mg PO DAILY [facility] Last Admin: 03/23/18 09:11 Dose: 5 mg Atorvastatin Calcium (Lipitor) 40 mg PO DAILY [facility] Last Admin: 03/23/18 09:11 Dose: 40 mg Enoxaparin Sodium (Lovenox) 40 mg SC DAILY [facility]; Protocol Folic Acid (Folic Acid) 1 mg PO DAILY [facility] Last Admin: 03/23/18 09:10 Dose: 1 mg Ceftriaxone Sodium 1 gm/ (Sodium Chloride) 100 mls @ 100 mls/hr IVPB DAILY [facility]; Protocol Last Admin: 03/23/18 10:32 Dose: 100 mls/hr Metoprolol Succinate (Toprol Xl) 25 mg PO DAILY [facility] Last Admin: 03/23/18 09:11 Dose: 25 mg Ondansetron HCl (Zofran Inj) 4 mg IVP Q6 PRN PRN Reason: Nausea/Vomiting Tamsulosin HCl (Flomax) 0.4 mg PO DAILY [facility] Last Admin: 03/23/18 09:10 Dose: 0.4 mg Results - Vital Signs Recent Vital Signs: Last Vital Signs Temp 97.6 F 03/23/18 08:24 Pulse 61 03/23/18 09:11 Resp 19 03/23/18 08:24 BP 120/63 03/23/18 09:11 Pulse Ox 97 03/23/18 08:24 - Labs Result Diagrams: 03/23/18 05:50 03/23/18 05:50 Labs: Laboratory Results - last 24 hr 03/22/18 03/22/18 03/22/18 19:16 19:16 19:16 WBC 9.0 RBC 4.07 L Hgb 9.9 L D Hct 31.0 L MCV 76.1 L D MCH 24.2 L MCHC 31.8 L RDW 15.6 H Plt Count 231 MPV 10.0 Neut % (Auto) 83.4 H Lymph % (Auto) 7.5 L [place] % (Auto) 8.7 Eos % (Auto) 0.0 Baso % (Auto) 0.4 Neut # (Auto) 7.5 H Lymph # (Auto) 0.7 L [place] # (Auto) 0.8 Eos # (Auto) 0.0 Baso # (Auto) 0.0 Neutrophils % (Manual) 79 H Band Neutrophils % 3 H Lymphocytes % (Manual) 9 L Monocytes % (Manual) 8 Eosinophils % (Manual) 1 Platelet Estimate Normal Polychromasia Slight Hypochromasia (manual) Moderate Poikilocytosis (manual Slight Anisocytosis (manual) Moderate Microcytosis (manual) Moderate Tear Drop Cells Slight Ovalocytes Slight PT INR APTT Sodium 137 Potassium 3.7 Chloride 97 L Carbon Dioxide 26 Anion Gap 18 BUN 21 H Creatinine 1.1 Est GFR ( Amer) > 60 Est GFR (Non-Af Amer) > 60 Random Glucose 130 H Lactic Acid Calcium 9.5 Phosphorus 3.1 Magnesium 1.9 Total Bilirubin 1.7 H AST 27 ALT 19 L D Alkaline Phosphatase 76 Troponin I 0.0810 NT-Pro-B Natriuret Pep 1020 H Total Protein 7.9 Albumin 4.4 Globulin 3.5 Albumin/Globulin Ratio 1.2 Urine Color Urine Clarity Urine pH Ur Specific [place] Urine Protein Urine Glucose (UA) Urine Ketones Urine Blood Urine Nitrate Urine Bilirubin Urine Urobilinogen Ur Leukocyte Esterase Urine RBC (Auto) Urine WBC Clumps (Auto) Urine Microscopic WBC Ur Squamous Epith Cells Urine Bacteria Hyaline Casts Influenza Typ A,B (EIA) Negative for flu a/b Blood Type Antibody Screen BBK History Checked 03/22/18 03/22/18 03/22/18 19:16 19:16 19:16 WBC RBC Hgb Hct MCV MCH MCHC RDW Plt Count MPV Neut % (Auto) Lymph % (Auto) [place] % (Auto) Eos % (Auto) Baso % (Auto) Neut # (Auto) Lymph # (Auto) [place] # (Auto) Eos # (Auto) Baso # (Auto) Neutrophils % (Manual) Band Neutrophils % Lymphocytes % (Manual) Monocytes % (Manual) Eosinophils % (Manual) Platelet Estimate Polychromasia Hypochromasia (manual) Poikilocytosis (manual Anisocytosis (manual) Microcytosis (manual) Tear Drop Cells Ovalocytes PT 18.4 H INR 1.6 APTT 29.2 Sodium Potassium Chloride Carbon Dioxide Anion Gap BUN Creatinine Est GFR ( Amer) Est GFR (Non-Af Amer) Random Glucose Lactic Acid 1.8 Calcium Phosphorus Magnesium Total Bilirubin AST ALT Alkaline Phosphatase Troponin I NT-Pro-B Natriuret Pep Total Protein Albumin Globulin Albumin/Globulin Ratio Urine Color Urine Clarity Urine pH Ur Specific [place] Urine Protein Urine Glucose (UA) Urine Ketones Urine Blood Urine Nitrate Urine Bilirubin Urine Urobilinogen Ur Leukocyte Esterase Urine RBC (Auto) Urine WBC Clumps (Auto) Urine Microscopic WBC Ur Squamous Epith Cells Urine Bacteria Hyaline Casts Influenza Typ A,B (EIA) Blood Type O POSITIVE Antibody Screen Negative BBK History Checked Patient has bt 03/22/18 03/23/18 03/23/18 19:16 05:50 05:50 WBC 10.7 RBC 4.09 L Hgb 9.9 L Hct 31.3 L MCV 76.5 L MCH 24.2 L MCHC 31.7 L RDW 15.6 H Plt Count 199 MPV 9.9 Neut % (Auto) 75.2 H Lymph % (Auto) 9.6 L [place] % (Auto) 14.8 H Eos % (Auto) 0.0 Baso % (Auto) 0.4 Neut # (Auto) 8.0 H Lymph # (Auto) 1.0 [place] # (Auto) 1.6 H Eos # (Auto) 0.0 Baso # (Auto) 0.0 Neutrophils % (Manual) Band Neutrophils % Lymphocytes % (Manual) Monocytes % (Manual) Eosinophils % (Manual) Platelet Estimate Polychromasia Hypochromasia (manual) Poikilocytosis (manual Anisocytosis (manual) Microcytosis (manual) Tear Drop Cells Ovalocytes PT INR APTT Sodium 135 Potassium 3.8 Chloride 98 Carbon Dioxide 25 Anion Gap 16 BUN 22 H Creatinine 1.1 Est GFR ( Amer) > 60 Est GFR (Non-Af Amer) > 60 Random Glucose 134 H Lactic Acid Calcium 9.1 Phosphorus Magnesium Total Bilirubin AST ALT Alkaline Phosphatase Troponin I NT-Pro-B Natriuret Pep Total Protein Albumin Globulin Albumin/Globulin Ratio Urine Color Yellow Urine Clarity Turbid Urine pH 5.0 Ur Specific [place] 1.014 Urine Protein 100 Urine Glucose (UA) Neg Urine Ketones Negative Urine Blood Moderate Urine Nitrate Positive H Urine Bilirubin Negative Urine Urobilinogen 0.2-1.0 Ur Leukocyte Esterase Large Urine RBC (Auto) 24 H Urine WBC Clumps (Auto) Mod H Urine Microscopic WBC 1010 H Ur Squamous Epith Cells < 1 Urine Bacteria Occ H Hyaline Casts 0-2 Influenza Typ A,B (EIA) Blood Type Antibody Screen BBK History Checked
--- NOTE | 2018-03-23 12:30 | RAD ---
Date of service: 03/22/2018 HISTORY: Shortness of breath, cough COMPARISON: 11/02/2016 FINDINGS: LUNGS: No active pulmonary disease. PLEURA: No significant pleural effusion identified, no pneumothorax apparent. CARDIOVASCULAR: No atherosclerotic calcification present No radiographic findings to suggest acute or significant cardiovascular disease. Incidental Finding(s): Postoperative changes related to sternotomy. Position/ configuration of pacemaker device: Satisfactory. OSSEOUS STRUCTURES: No significant abnormalities. VISUALIZED UPPER ABDOMEN: Normal. OTHER FINDINGS: None. IMPRESSION: No active disease. No significant interval change compared to the prior examination(s).
[2018-03-23] MEDS: Meropenem 1 GM in Sodium Chloride 0.9% 100 ML IVPB SCH (16:12)
--- NOTE | 2018-03-23 21:11 | CON ---
DATE: 03/23/2018 INFECTIOUS DISEASE CONSULTATION HISTORY OF PRESENT ILLNESS: The patient is an 82-year-old male who has a significant coronary history with multiple surgeries, one being coronary artery bypass graft, aortic valve replacement in 03/18/2018 with a porcine valve and a dual-chamber pacemaker implant last month,who came to the emergency room complaining of chills and fever accompanied by vomiting yesterday. He said previously that he had burning on urination and hematuria for a couple of days. He also gave a history of fever and chills for two to three days. He went to see Dr. Flynn who initially ordered a urine culture, but when was informed of the fever and chills, he sent the patient to the emergency room. Upon questioning, the patient said after receiving antibiotics last night, he still had some chills today and still felt little bit as he called it uncomfortable. PHYSICAL EXAMINATION: GENERAL: He is alert, cooperative and oriented to time and place. HEENT: Within normal limits. NECK: Supple. LUNGS: He has some rales at both bases. Has a sternotomy scar on the chest. HEART: Regular sinus rhythm. ABDOMEN: Soft. Positive bowel sounds. EXTREMITIES: No CCE. LABORATORY DATA: Cultures at present time are pending. White count is 10.7, hemoglobin 9.9, platelet count is 199. He has a mild left shift. Chemistry: Creatinine is 1.1, GFR is greater than 60, sodium 135, potassium 3.8, carbon dioxide 98. ASSESSMENT AND PLAN: At the present time, seems to have responded to Rocephin only in 1 g, but at present time, the impression will be sepsis, rule out infected endocarditis. Probably, main diagnosis is urinary tract infection, possible urosepsis. As we await for the cultures to return, we will be treating him with daptomycin and also with meropenem. I have ordered peripherally inserted central catheter line. I have ordered serum procalcitonin levels also. Hopefully, we can send the patient home on extended treatment of two weeks if no positive blood cultures or four to six weeks if he has positive blood cultures. We will make decision of the antibiotics based on the findings in that. Mustapha Flood MD MTDD
[2018-03-24] MEDS: Meropenem 1 GM in Sodium Chloride 0.9% 100 ML IVPB SCH ×3 (01:26→16:32)
[2018-03-24] MEDS: Enoxaparin 40 mg Syringe SC SCH (08:39)
[2018-03-24] MEDS: Metoprolol Succinate 25 mg XL Tab PO SCH (08:40)
[2018-03-24 08:56] LABS: BASO % 0.4 % (0.0-2.0); EOS % 0.4 % (0.0-4.0); HEMOGLOBIN 9.5 g/dL (12.0-18.0); LYMPH # 1.1 K/uL (1.0-4.3); LYMPH % 15.4 % (20.0-40.0); MEAN CELL VOLUME 75.6 fl (80.0-94.0); MEAN CORPUSCULAR HEMOGLOBIN 24.4 pg (27.0-31.0); MEAN CORPUSCULAR HGB CONC 32.3 g/dL (33.0-37.0); MEAN PLATELET VOLUME 9.9 fl (7.2-11.7); MONO # 1.1 K/uL (0.0-0.8); MONO % 15.5 % (0.0-10.0); NEUT # 4.6 K/uL (1.8-7.0); NEUT % 68.3 % (50.0-75.0); RBC 3.87 Mil/uL (4.40-5.90); RED CELL DISTRIBUTION WIDTH 15.4 % (11.5-14.5); WHITE BLOOD COUNT 6.8 K/uL (4.8-10.8)
[2018-03-24 09:51] LABS: ALB/GLOB RATIO 1.1 (1.0-2.1); ALBUMIN 3.6 g/dL (3.5-5.0); ALT/SGPT 23 U/L (21-72); AST/SGOT 34 U/L (17-59); BLOOD UREA NITROGEN 21 mg/dl (9-20); GFR NON-AFRICAN AMERICAN > 60
--- NOTE | 2018-03-24 11:23 | CP.PCM.PN ---
Subjective - Date & Time of Evaluation Date of Evaluation: 03/24/18 Time of Evaluation: 09:10 - Subjective Subjective: The patient was found resting comfortably in his bed. He had a fever of 101.8 degrees last night. He denied any chills during this time. The patient is afebrile and has a heart rate of 80 bpm regular and a blood pressure of 134/74 mmHg. His jugular venous pressure was not elevated and there was no edema over lower extremities. Review of his labs show normal leukocyte count and microcytic hypochromic anemia. Urine culture on the day of his admission has shown presence of E. coli. Sensitivity is still awaited. Is present IV antibiotics scheduled covers it. I have discussed this finding with Dr. Franklin. Objective - Vital Signs/Intake and Output Vital Signs (last 24 hours): Temp Pulse Resp BP Pulse Ox 98.4 F 72 20 118/69 98 03/24/18 08:03 03/24/18 08:03 03/24/18 08:03 03/24/18 08:03 03/24/18 08:03 - Medications Medications: Current Medications Acetaminophen (Tylenol 325mg Tab) 650 mg PO Q4 PRN PRN Reason: Fever >100.4 F Last Admin: 03/24/18 01:31 Dose: 650 mg Amlodipine Besylate (Norvasc) 5 mg PO DAILY [facility] Last Admin: 03/24/18 08:40 Dose: 5 mg Atorvastatin Calcium (Lipitor) 40 mg PO DAILY [facility] Last Admin: 03/24/18 08:39 Dose: 40 mg Enoxaparin Sodium (Lovenox) 40 mg SC DAILY [facility]; Protocol Last Admin: 03/24/18 08:39 Dose: 40 mg Folic Acid (Folic Acid) 1 mg PO DAILY [facility] Last Admin: 03/24/18 08:39 Dose: 1 mg Daptomycin 540 mg/ Sodium (Chloride) 100 mls @ 100 mls/hr IV Q24H [facility]; Protocol Stop: 03/28/18 14:46 Last Admin: 03/23/18 17:48 Dose: 100 mls/hr Meropenem 1 gm/ Sodium (Chloride) 100 mls @ 100 mls/hr IVPB Q8 [facility]; Protocol Last Admin: 03/24/18 08:38 Dose: 100 mls/hr Metoprolol Succinate (Toprol Xl) 25 mg PO DAILY [facility] Last Admin: 03/24/18 08:40 Dose: 25 mg Ondansetron HCl (Zofran Inj) 4 mg IVP Q6 PRN PRN Reason: Nausea/Vomiting Tamsulosin HCl (Flomax) 0.4 mg PO DAILY [facility] Last Admin: 03/24/18 08:39 Dose: 0.4 mg - Labs Labs: 03/24/18 06:50 03/24/18 06:50 PT 18.4 Seconds (9.8-13.1) H 03/22/18 19:16 INR 1.6 03/22/18 19:16 APTT 29.2 Seconds (25.6-37.1) 03/22/18 19:16
--- NOTE | 2018-03-24 15:50 | CP.PCM.PN ---
Subjective - Date & Time of Evaluation Date of Evaluation: 03/24/18 Time of Evaluation: 09:30 - Subjective Subjective: 82 y/o M was seen and examined by bedside. Pt reports feeling OK, denies chills, sweats, nausea, vomiting, dysuria, urinary frequency. Pt afebrile and tolerating PO. Pt had a fever overnight. Objective - Vital Signs/Intake and Output Vital Signs (last 24 hours): Temp Pulse Resp BP Pulse Ox 98.4 F 72 20 118/69 98 03/24/18 08:03 03/24/18 08:03 03/24/18 08:03 03/24/18 08:03 03/24/18 08:03 - Medications Medications: Current Medications Acetaminophen (Tylenol 325mg Tab) 650 mg PO Q4 PRN PRN Reason: Fever >100.4 F Last Admin: 03/24/18 01:31 Dose: 650 mg Amlodipine Besylate (Norvasc) 5 mg PO DAILY [facility] Last Admin: 03/24/18 08:40 Dose: 5 mg Atorvastatin Calcium (Lipitor) 40 mg PO DAILY [facility] Last Admin: 03/24/18 08:39 Dose: 40 mg Enoxaparin Sodium (Lovenox) 40 mg SC DAILY [facility]; Protocol Last Admin: 03/24/18 08:39 Dose: 40 mg Folic Acid (Folic Acid) 1 mg PO DAILY [facility] Last Admin: 03/24/18 08:39 Dose: 1 mg Daptomycin 540 mg/ Sodium (Chloride) 100 mls @ 100 mls/hr IV Q24H [facility]; Protocol Stop: 03/28/18 14:46 Last Admin: 03/24/18 13:45 Dose: 100 mls/hr Meropenem 1 gm/ Sodium (Chloride) 100 mls @ 100 mls/hr IVPB Q8 [facility]; Protocol Last Admin: 03/24/18 08:38 Dose: 100 mls/hr Metoprolol Succinate (Toprol Xl) 25 mg PO DAILY [facility] Last Admin: 03/24/18 08:40 Dose: 25 mg Ondansetron HCl (Zofran Inj) 4 mg IVP Q6 PRN PRN Reason: Nausea/Vomiting Tamsulosin HCl (Flomax) 0.4 mg PO DAILY [facility] Last Admin: 03/24/18 08:39 Dose: 0.4 mg - Labs Labs: 03/24/18 06:50 03/24/18 06:50 PT 18.4 Seconds (9.8-13.1) H 03/22/18 19:16 INR 1.6 03/22/18 19:16 APTT 29.2 Seconds (25.6-37.1) 03/22/18 19:16 - Constitutional Appears: Well, No Acute Distress - Head Exam Head Exam: ATRAUMATIC, NORMAL INSPECTION - Eye Exam Eye Exam: EOMI, Normal appearance - ENT Exam ENT Exam: Mucous Membranes Moist - Neck Exam Neck Exam: Full ROM. absent: Meningismus - Respiratory Exam Respiratory Exam: NORMAL BREATHING PATTERN. absent: Rhonchi, Wheezes, Respiratory Distress - Cardiovascular Exam Cardiovascular Exam: REGULAR RHYTHM, +S1, +S2 - GI/Abdominal Exam GI & Abdominal Exam: Soft. absent: Distended, Firm, Guarding, Rigid, Tenderness - Extremities Exam Extremities Exam: Full ROM. absent: Calf Tenderness, Joint Swelling, Pedal Edema, Tenderness - Back Exam Back Exam: absent: CVA tenderness (L), CVA tenderness (R) - Neurological Exam Neurological Exam: Alert, Awake Assessment and Plan - Assessment and Plan (Free Text) Assessment: 82 year old Male with PMHx of HTN, HLD, aortic valve replacement, recent pacemaker implantation (Feb 2017), admitted for Complicated Urinary Tract Infection PLAN: >Acute complicated UTI --Fever overnight, no leukocytosis --ID on board, Dr Flood --On IV Daptomycin and Meropenem --Unrine Cx: gram negative rods. --F/u final reports from urine culture and blood culture --Tylenol for fever > 100.4. Zofran PRN for nausea >Recent hx pacemaker implantation/Aortic Valve Replacement/CAD --F/u blood cultures --Cardiology on board, Dr Demarco Flynn >Hypertension --Resume home meds --Cardiology on board, Dr Demarco Flynn >Chronic Anemia --Has hx colon cancer --Iron studies ordered. >Diet --Heart Healthy >DVT prophylaxis --Lovenox 40 mg sc Case discussed with Dr Sherman Emery PGY-2
[2018-03-24 16:29] LABS: IRON 10 ug/dL (49-181)
[2018-03-24 16:38] LABS: % IRON SATURATION 3 % (20-55); TOTAL IRON BINDING CAPACITY 313 ug/dL (250-450)
[2018-03-24] MEDS ORDERED: guaiFENesin DM 200 mg-20 mg/10 ml UD PO STA (21:13)
[2018-03-24] MEDS ORDERED: Benzocaine/Menthol (Cepacol) Lozenge PO ONE (21:14)
--- NOTE | 2018-03-24 21:37 | CP.PCM.PN ---
Subjective - Date & Time of Evaluation Date of Evaluation: 03/24/18 Time of Evaluation: 21:37 - Subjective Subjective: I D NOTE CHART REVIEWED POSITIVE BLOOD CULTURE FOR GRAM NEGATIVE RODS(LIKELY E.COLI OUT PATIENT URINE WAS POSITIVE FOR E.COLI) HAVE DISCUSSED c WILL NEED 4 TO 6 WEEKS IV ANTIBIOTIC RX AWAIT IDENTIFICATION OF BACTERIA Objective - Vital Signs/Intake and Output Vital Signs (last 24 hours): Temp Pulse Resp BP Pulse Ox 98.6 F 96 H 20 108/62 95 03/24/18 16:25 03/24/18 16:25 03/24/18 16:25 03/24/18 16:25 03/24/18 16:25 - Medications Medications: Current Medications Acetaminophen (Tylenol 325mg Tab) 650 mg PO Q4 PRN PRN Reason: Fever >100.4 F Last Admin: 03/24/18 01:31 Dose: 650 mg Amlodipine Besylate (Norvasc) 5 mg PO DAILY [facility] Last Admin: 03/24/18 08:40 Dose: 5 mg Atorvastatin Calcium (Lipitor) 40 mg PO DAILY [facility] Last Admin: 03/24/18 08:39 Dose: 40 mg Enoxaparin Sodium (Lovenox) 40 mg SC DAILY [facility]; Protocol Last Admin: 03/24/18 08:39 Dose: 40 mg Folic Acid (Folic Acid) 1 mg PO DAILY [facility] Last Admin: 03/24/18 08:39 Dose: 1 mg Daptomycin 540 mg/ Sodium (Chloride) 100 mls @ 100 mls/hr IV Q24H [facility]; Protocol Stop: 03/28/18 14:46 Last Admin: 03/24/18 13:45 Dose: 100 mls/hr Meropenem 1 gm/ Sodium (Chloride) 100 mls @ 100 mls/hr IVPB Q8 [facility]; Protocol Last Admin: 03/24/18 16:32 Dose: 100 mls/hr Metoprolol Succinate (Toprol Xl) 25 mg PO DAILY [facility] Last Admin: 03/24/18 08:40 Dose: 25 mg Ondansetron HCl (Zofran Inj) 4 mg IVP Q6 PRN PRN Reason: Nausea/Vomiting Tamsulosin HCl (Flomax) 0.4 mg PO DAILY [facility] Last Admin: 03/24/18 08:39 Dose: 0.4 mg - Labs Labs: 03/24/18 06:50 03/24/18 06:50 PT 18.4 Seconds (9.8-13.1) H 03/22/18 19:16 INR 1.6 03/22/18 19:16 APTT 29.2 Seconds (25.6-37.1) 03/22/18 19:16
[2018-03-25] MEDS: Meropenem 1 GM in Sodium Chloride 0.9% 100 ML IVPB SCH ×3 (00:25→16:24)
[2018-03-25 07:06] LABS: MEAN CELL VOLUME 75.4 fl (80.0-94.0); MEAN CORPUSCULAR HEMOGLOBIN 23.8 pg (27.0-31.0); MEAN CORPUSCULAR HGB CONC 31.6 g/dL (33.0-37.0); RBC 3.79 Mil/uL (4.40-5.90); RED CELL DISTRIBUTION WIDTH 15.2 % (11.5-14.5); WHITE BLOOD COUNT 6.3 K/uL (4.8-10.8)
[2018-03-25] MEDS: Enoxaparin 40 mg Syringe SC SCH (08:30)
[2018-03-25] MEDS: Metoprolol Succinate 25 mg XL Tab PO SCH (08:31)
--- NOTE | 2018-03-25 11:56 | CP.PCM.PN ---
Subjective - Date & Time of Evaluation Date of Evaluation: 03/25/18 Time of Evaluation: 09:00 - Subjective Subjective: Pt is an 82 yo M with pmhx of AV valve replacement, pacemaker, HTN, HLD presented with dysuria and frequency admitted for complicated UTI, found to have bacteremia on blood cx. Pt remained afebrile overnight, reports non productive cough 4-5 days, chills. Good appetite. Denies nausea, vomiting, SOB, chest pain, dysuria, frequency or incontinence. Objective - Vital Signs/Intake and Output Vital Signs (last 24 hours): Temp Pulse Resp BP Pulse Ox 98.8 F 81 19 124/68 98 03/25/18 08:57 03/25/18 08:57 03/25/18 08:57 03/25/18 08:57 03/25/18 09:34 - Medications Medications: Current Medications Acetaminophen (Tylenol 325mg Tab) 650 mg PO Q4 PRN PRN Reason: Fever >100.4 F Last Admin: 03/24/18 01:31 Dose: 650 mg Amlodipine Besylate (Norvasc) 5 mg PO DAILY [facility] Last Admin: 03/25/18 08:31 Dose: 5 mg Atorvastatin Calcium (Lipitor) 40 mg PO DAILY [facility] Last Admin: 03/25/18 08:30 Dose: 40 mg Enoxaparin Sodium (Lovenox) 40 mg SC DAILY [facility]; Protocol Last Admin: 03/25/18 08:30 Dose: 40 mg Folic Acid (Folic Acid) 1 mg PO DAILY [facility] Last Admin: 03/25/18 08:30 Dose: 1 mg Daptomycin 540 mg/ Sodium (Chloride) 100 mls @ 100 mls/hr IV Q24H [facility]; Protocol Stop: 03/28/18 14:46 Last Admin: 03/24/18 13:45 Dose: 100 mls/hr Meropenem 1 gm/ Sodium (Chloride) 100 mls @ 100 mls/hr IVPB Q8 [facility]; Protocol Last Admin: 03/25/18 08:30 Dose: 100 mls/hr Metoprolol Succinate (Toprol Xl) 25 mg PO DAILY [facility] Last Admin: 03/25/18 08:31 Dose: 25 mg Ondansetron HCl (Zofran Inj) 4 mg IVP Q6 PRN PRN Reason: Nausea/Vomiting Tamsulosin HCl (Flomax) 0.4 mg PO DAILY [facility] Last Admin: 03/25/18 08:29 Dose: 0.4 mg - Labs Labs: 03/25/18 05:30 03/24/18 06:50 PT 18.4 Seconds (9.8-13.1) H 03/22/18 19:16 INR 1.6 03/22/18 19:16 APTT 29.2 Seconds (25.6-37.1) 03/22/18 19:16 - Constitutional Appears: Non-toxic, No Acute Distress - Head Exam Head Exam: ATRAUMATIC, NORMAL INSPECTION, NORMOCEPHALIC - Eye Exam Eye Exam: EOMI - ENT Exam ENT Exam: Mucous Membranes Moist - Neck Exam Neck Exam: Full ROM - Respiratory Exam Respiratory Exam: Clear to Ausculation Bilateral. absent: Rales, Rhonchi, Wheezes Additional comments: Mild cough - Cardiovascular Exam Cardiovascular Exam: RRR, +S1, +S2 Additional comments: Sternotomy scar - GI/Abdominal Exam GI & Abdominal Exam: Soft, Normal Bowel Sounds Additional comments: Vertical abdominal incision scar - Extremities Exam Extremities Exam: Normal Inspection - Back Exam Back Exam: absent: CVA tenderness (L), CVA tenderness (R) - Neurological Exam Neurological Exam: Alert, Awake, Oriented x3 Assessment and Plan - Assessment and Plan (Free Text) Assessment: 82 year old Male with PMHx of HTN, HLD, AV valve replacement, pacemaker implantation (Feb 2017), admitted for Complicated Urinary Tract Infection PLAN: >Acute complicated UTI --No Fever overnight, no leukocytosis --ID on board, Dr Flood- reccs appreciated- 4-6 weeks of IV abx- await identification of bacteria --C/w IV Daptomycin and Meropenem, monitor renal fxn (BUN 21, CR 1) --Urine Cx: E coli --1st Blood Cx: Gram Negative rods, 2nd Blood cx-no growth @ 24hrs, f.u repeat blood cx --Procalcitonin elevated --Tylenol for fever > 100.4. Zofran PRN for nausea, PT eval --Ordered Echo r/o vegetation-F/u --F/u AB/Pelv U/S >S/p pacemaker implantation/Aortic Valve Replacement/CAD --1st Blood Cx: Gram Negative rods, 2nd Blood cx-no growth @ 24hrs, f.u repeat blood cx --Cardiology on board, Dr Demarco Flynn >Non productive cough CXR 03/23/18- showed small R pleural effusion -given cepacol and robitussin overnight -consider repeat CXR if symptoms worsen >Hypertension --c/w norvasc, metoprolol --Cardiology on board, Dr Demarco Flynn >Anemia of Chronic Disease --Has hx colon cancer --HG 9.0L --Iron studies Fe 10L, TIBC 313, % sat 3, Ferritin 27.2 --consider ferrous sulfate >Dyslipidemia --chronic --c/w lipitor >BPH --chronic --c/w flomax >Diet --Heart Healthy >DVT prophylaxis --Lovenox 40 mg sc Case discussed with Dr Sherman Stack PGY1
[2018-03-25] MEDS ORDERED: guaiFENesin DM 100 mg-10 mg/5 ml UD PO PRN (13:16)
--- NOTE | 2018-03-25 13:21 | CP.PCM.PN ---
Subjective - Date & Time of Evaluation Date of Evaluation: 03/25/18 Time of Evaluation: 11:00 - Subjective Subjective: The patient has remained afebrile for last 24 hours. Except for a dry nonproductive cough he remains quite comfortable. In addition to positive urine cultures (E. coli) blood cultures are positive for gram-negative rods. The precise identification of bacteria is still awaited and sensitivity is still awaited. Given this finding the patient will have an echocardiogram tomorrow to rule out evidence of vegetations. The patient is scheduled to have a PICC line insertion tomorrow. I have discussed his case with Dr. Flood. Objective - Vital Signs/Intake and Output Vital Signs (last 24 hours): Temp Pulse Resp BP Pulse Ox 98.8 F 81 19 124/68 98 03/25/18 08:57 03/25/18 08:57 03/25/18 08:57 03/25/18 08:57 03/25/18 09:34 - Medications Medications: Current Medications Acetaminophen (Tylenol 325mg Tab) 650 mg PO Q4 PRN PRN Reason: Fever >100.4 F Last Admin: 03/24/18 01:31 Dose: 650 mg Amlodipine Besylate (Norvasc) 5 mg PO DAILY [facility] Last Admin: 03/25/18 08:31 Dose: 5 mg Atorvastatin Calcium (Lipitor) 40 mg PO DAILY [facility] Last Admin: 03/25/18 08:30 Dose: 40 mg Enoxaparin Sodium (Lovenox) 40 mg SC DAILY [facility]; Protocol Last Admin: 03/25/18 08:30 Dose: 40 mg Folic Acid (Folic Acid) 1 mg PO DAILY [facility] Last Admin: 03/25/18 08:30 Dose: 1 mg Guaifenesin/Dextromethorphan (Robitussin Dm) 10 ml PO Q6 PRN PRN Reason: Cough Daptomycin 540 mg/ Sodium (Chloride) 100 mls @ 100 mls/hr IV Q24H [facility]; Protocol Stop: 03/28/18 14:46 Last Admin: 03/24/18 13:45 Dose: 100 mls/hr Meropenem 1 gm/ Sodium (Chloride) 100 mls @ 100 mls/hr IVPB Q8 [facility]; Protocol Last Admin: 03/25/18 08:30 Dose: 100 mls/hr Metoprolol Succinate (Toprol Xl) 25 mg PO DAILY [facility] Last Admin: 03/25/18 08:31 Dose: 25 mg Ondansetron HCl (Zofran Inj) 4 mg IVP Q6 PRN PRN Reason: Nausea/Vomiting Tamsulosin HCl (Flomax) 0.4 mg PO DAILY [facility] Last Admin: 03/25/18 08:29 Dose: 0.4 mg - Labs Labs: 03/25/18 05:30 03/24/18 06:50 PT 18.4 Seconds (9.8-13.1) H 03/22/18 19:16 INR 1.6 03/22/18 19:16 APTT 29.2 Seconds (25.6-37.1) 03/22/18 19:16
--- NOTE | 2018-03-25 15:09 | CP.PCM.PN ---
Subjective - Date & Time of Evaluation Date of Evaluation: 03/25/18 Time of Evaluation: 15:02 - Subjective Subjective: I D NOTE AWAITING FINAL BLOOD CULTURE RESULTS DISCUSSED TREATMENT IN DETAIL c PATIENT FOR ECHOCARDIOGRAM TOMORROW US ORDERED NO CHANGE IN RX FOR PRESENT Objective - Vital Signs/Intake and Output Vital Signs (last 24 hours): Temp Pulse Resp BP Pulse Ox 98.8 F 81 19 124/68 98 03/25/18 08:57 03/25/18 08:57 03/25/18 08:57 03/25/18 08:57 03/25/18 09:34 - Medications Medications: Current Medications Acetaminophen (Tylenol 325mg Tab) 650 mg PO Q4 PRN PRN Reason: Fever >100.4 F Last Admin: 03/24/18 01:31 Dose: 650 mg Amlodipine Besylate (Norvasc) 5 mg PO DAILY [facility] Last Admin: 03/25/18 08:31 Dose: 5 mg Atorvastatin Calcium (Lipitor) 40 mg PO DAILY [facility] Last Admin: 03/25/18 08:30 Dose: 40 mg Enoxaparin Sodium (Lovenox) 40 mg SC DAILY [facility]; Protocol Last Admin: 03/25/18 08:30 Dose: 40 mg Folic Acid (Folic Acid) 1 mg PO DAILY [facility] Last Admin: 03/25/18 08:30 Dose: 1 mg Guaifenesin/Dextromethorphan (Robitussin Dm) 10 ml PO Q6 PRN PRN Reason: Cough Daptomycin 540 mg/ Sodium (Chloride) 100 mls @ 100 mls/hr IV Q24H [facility]; Protocol Stop: 03/28/18 14:46 Last Admin: 03/25/18 14:00 Dose: 100 mls/hr Meropenem 1 gm/ Sodium (Chloride) 100 mls @ 100 mls/hr IVPB Q8 [facility]; Protocol Last Admin: 03/25/18 08:30 Dose: 100 mls/hr Metoprolol Succinate (Toprol Xl) 25 mg PO DAILY [facility] Last Admin: 03/25/18 08:31 Dose: 25 mg Ondansetron HCl (Zofran Inj) 4 mg IVP Q6 PRN PRN Reason: Nausea/Vomiting Tamsulosin HCl (Flomax) 0.4 mg PO DAILY [facility] Last Admin: 03/25/18 08:29 Dose: 0.4 mg - Labs Labs: 03/25/18 05:30 03/24/18 06:50 PT 18.4 Seconds (9.8-13.1) H 03/22/18 19:16 INR 1.6 03/22/18 19:16 APTT 29.2 Seconds (25.6-37.1) 03/22/18 19:16
--- NOTE | 2018-03-25 15:25 | US ---
Date of service: 03/25/2018 PROCEDURE: HISTORY: urosepsis,bph COMPARISON: TECHNIQUE: FINDINGS: The bladder is unremarkable. There is a 50 cc postvoid residual. Both ureteral jets are identified. The prostate gland measures roughly 63 cc. Correlate with PSA levels. IMPRESSION: As above.
[2018-03-25] MEDS: guaiFENesin DM 200 mg-20 mg/10 ml UD PO PRN (16:24)
[2018-03-26] MEDS: Meropenem 1 GM in Sodium Chloride 0.9% 100 ML IVPB SCH ×3 (00:42→17:20)
[2018-03-26] MEDS ORDERED: Lidocaine Hydrochloride 5 ML INJ ONE (09:10)
--- NOTE | 2018-03-26 09:54 | PQF ---
PROVIDER RESPONSE TEXT: Bacteremia with sepsis on ADMISSION Cause of bacteremia is UTI REVIEWER QUERY TEXT: Bacteremia Underlying Cause Bacteremia is documented in the Medical Record. Please clarify if this is Bacteremia with or without Sepsis. Diagnosis of Complicated UTI. History of CABG, Valve replacement and pacemaker insertion. ECH O pending to rule out vegetations. ID: At the present time, seems to have responded to Rocephin only in 1 g, but at present time, the im pression will be sepsis, rule out infected endocarditis. Probably, main diagnosis is urinary tract in fection, possible urosepsis. Please specify the underlying cause of bacteremia with or without Sepsis AFTER WORK-UP(suspected, pro bable, questionable, or clinical is acceptable if documented at the time of discharge) The patient's Clinical Indicators include: TEMP: 98.7, 100.6, 99.4, 101.1, 99.4, 101.1, 102.6, 102.6, 100.1 HR: 91, 71, 70, 71, 61, 61, 61, 87, 89, BP: 141/64, 120/61, 131/67, 120/61, 120/63, WBC 9.0 L shift, Lactate 1.8, Procalcitonin 2.71, PT 18.4 URINE CS : E Coli, BLOOD CS X2 : E Coli IVAB Query created by: Shahida Jimenez on 03/26/2018 9:25 AM Electronically signed by: 03/26/2018 9:51 AM
--- NOTE | 2018-03-26 09:56 | PCM.SURG1 ---
Surgeon's Initial Post Op Note - Surgeon's Notes Surgeon: Junior Quiñones MD Skin Carver: NONE Type of Anesthesia: Local Pre-Operative Diagnosis: INfection Operative Findings: US showed patent right basilic vein Post-Operative Diagnosis: Infection Operation Performed: Single lumen picc right arm, 37 cm. Tip in SVC. Specimen/Specimens Removed: None Estimated Blood Loss: EBL {In ML}: 2 Blood Products Given: N/A Drains Used: No Drains Post-Op Condition: Fair Date of Surgery/Procedure: 03/26/18 Time of Surgery/Procedure: 09:50
--- NOTE | 2018-03-26 11:00 | US ---
Date of service: 03/26/2018 PROCEDURE: Ultrasound of the Kidneys HISTORY: UTI, r/o pyelonephritis COMPARISON: Comparison made with CT scan abdomen and pelvis 08/12/2016 TECHNIQUE: Sonogram of the kidneys. FINDINGS: RIGHT KIDNEY: Measures: 11.4 x 6.2 x 6.2 cm. Normal in size, contour and echogenicity. No stone, solid mass lesion or hydronephrosis visualized. LEFT KIDNEY: Measures: 12.2 x 6.1 x 6.2 cm. Normal in size, contour and echogenicity. No stone, solid mass lesion or hydronephrosis visualized. OTHER FINDINGS: None. IMPRESSION: Unremarkable renal sonogram.
[2018-03-26] MEDS: Enoxaparin 40 mg Syringe SC SCH (11:05)
[2018-03-26] MEDS: Metoprolol Succinate 25 mg XL Tab PO SCH (11:07)
--- NOTE | 2018-03-26 11:48 | CP.PCM.DIS ---
Provider - Provider Date of Admission: 03/23/18 20:07 Attending physician: Yong Saavedra MD Consults: 03/23/18 10:31 Infectious Disease Consult Routine Comment: Consulting Provider: Mustapha Flood Consulting Physician: Mustapha Flood Reason for Consult: UTI on Rocephin 1 gm Daily 03/25/18 23:59 Case Management Referral Routine Comment: Physician Instructions: Reason For Exam: lives alone Reason for Referral: Discharge Planning 03/26/18 07:09 Cardiology Consult Routine Comment: Consulting Provider: Isael Flynn V Consulting Physician: Isael Flynn V Reason for Consult: UTI, sepsis Time Spent in preparation of Discharge (in minutes): 30 Diagnosis - Discharge Diagnosis (1) UTI (urinary tract infection) Status: Acute Comment: --Pt had PICC line placed, will return every day to hospital for IV administration for at least 4 week. --Ceftriaxone 2gr daily. (2) S/P AVR (aortic valve replacement) Status: Acute Comment: --C/w medication (3) S/P placement of cardiac pacemaker Status: Acute Hospital Course - Lab Results Lab Results: Micro Results 03/24/18 10:30 Blood Blood Culture - Preliminary NO GROWTH AFTER 48 HOURS 03/25/18 08:50 Blood Blood Culture - Preliminary NO GROWTH AFTER 24 HOURS 03/22/18 19:16 Blood Blood Culture - Final Escherichia Coli 03/22/18 19:16 Blood Gram Stain - Final 03/22/18 19:16 Blood Blood Culture - Final Escherichia Coli 03/22/18 19:16 Blood Gram Stain - Final 03/22/18 19:16 Urine,Clean Catch Urine Culture - Final Escherichia Coli Most Recent Lab Values WBC 6.3 K/uL (4.8-10.8) 03/25/18 05:30 RBC 3.79 Mil/uL (4.40-5.90) L 03/25/18 05:30 Hgb 9.0 g/dL (12.0-18.0) L 03/25/18 05:30 Hct 28.6 % (35.0-51.0) L 03/25/18 05:30 MCV 75.4 fl (80.0-94.0) L 03/25/18 05:30 MCH 23.8 pg (27.0-31.0) L 03/25/18 05:30 MCHC 31.6 g/dL (33.0-37.0) L 03/25/18 05:30 RDW 15.2 % (11.5-14.5) H 03/25/18 05:30 Plt Count 194 K/uL (130-400) 03/25/18 05:30 MPV 9.9 fl (7.2-11.7) 03/24/18 06:50 Neut % (Auto) 68.3 % (50.0-75.0) 03/24/18 06:50 Lymph % (Auto) 15.4 % (20.0-40.0) L 03/24/18 06:50 [place] % (Auto) 15.5 % (0.0-10.0) H 03/24/18 06:50 Eos % (Auto) 0.4 % (0.0-4.0) 03/24/18 06:50 Baso % (Auto) 0.4 % (0.0-2.0) 03/24/18 06:50 Neut # (Auto) 4.6 K/uL (1.8-7.0) 03/24/18 06:50 Lymph # (Auto) 1.1 K/uL (1.0-4.3) 03/24/18 06:50 [place] # (Auto) 1.1 K/uL (0.0-0.8) H 03/24/18 06:50 Eos # (Auto) 0.0 K/uL (0.0-0.7) 03/24/18 06:50 Baso # (Auto) 0.0 K/uL (0.0-0.2) 03/24/18 06:50 Neutrophils % (Manual) 79 % (42-75) H 03/22/18 19:16 Band Neutrophils % 3 % (0-2) H 03/22/18 19:16 Lymphocytes % (Manual) 9 % (20-50) L 03/22/18 19:16 Monocytes % (Manual) 8 % (0-10) 03/22/18 19:16 Eosinophils % (Manual) 1 % (0-7) 03/22/18 19:16 Platelet Estimate Normal (NORMAL) 03/22/18 19:16 Polychromasia Slight 03/22/18 19:16 Hypochromasia (manual) Moderate 03/22/18 19:16 Poikilocytosis (manual Slight 03/22/18 19:16 Anisocytosis (manual) Moderate 03/22/18 19:16 Microcytosis (manual) Moderate 03/22/18 19:16 Tear Drop Cells Slight 03/22/18 19:16 Ovalocytes Slight 03/22/18 19:16 Retic Count 1.3 % (0.5-1.5) 03/25/18 05:30 PT 18.4 Seconds (9.8-13.1) H 03/22/18 19:16 INR 1.6 03/22/18 19:16 APTT 29.2 Seconds (25.6-37.1) 03/22/18 19:16 Sodium 137 mmol/l (132-148) 03/24/18 06:50 Potassium 4.4 MMOL/L (3.6-5.0) 03/24/18 06:50 Chloride 97 mmol/L (98-107) L 03/24/18 06:50 Carbon Dioxide 29 mmol/L (22-30) 03/24/18 06:50 Anion Gap 15 (10-20) 03/24/18 06:50 BUN 21 mg/dl (9-20) H 03/24/18 06:50 Creatinine 1.0 mg/dl (0.8-1.5) 03/24/18 06:50 Est GFR ( Amer) > 60 03/24/18 06:50 Est GFR (Non-Af Amer) > 60 03/24/18 06:50 Random Glucose 127 mg/dL (75-110) H 03/24/18 06:50 Lactic Acid 1.8 mmol/L (0.7-2.1) 03/22/18 19:16 Calcium 9.0 mg/dL (8.4-10.2) 03/24/18 06:50 Phosphorus 3.1 mg/dl (2.5-4.5) 03/22/18 19:16 Magnesium 1.9 MG/DL (1.6-2.3) 03/22/18 19:16 Iron 10 ug/dL (49-181) L 03/24/18 15:37 TIBC 313 ug/dL (250-450) 03/24/18 15:37 % Saturation 3 % (20-55) L 03/24/18 15:37 Ferritin 27.2 ng/Ml (17.9-464) 03/25/18 05:30 Total Bilirubin 1.0 mg/dl (0.2-1.3) 03/24/18 06:50 AST 34 U/L (17-59) 03/24/18 06:50 ALT 23 U/L (21-72) 03/24/18 06:50 Alkaline Phosphatase 66 U/L (38-126) 03/24/18 06:50 Troponin I 0.0810 ng/mL (0.00-0.120) 03/22/18 19:16 NT-Pro-B Natriuret Pep 1020 pg/ml (0-900) H 03/22/18 19:16 Total Protein 6.8 G/DL (6.3-8.2) 03/24/18 06:50 Albumin 3.6 g/dL (3.5-5.0) 03/24/18 06:50 Globulin 3.2 gm/dL (2.2-3.9) 03/24/18 06:50 Albumin/Globulin Ratio 1.1 (1.0-2.1) 03/24/18 06:50 Prostate Specific Ag 4.23 ng/ML (0.00-4.0) H 03/24/18 06:50 Procalcitonin 1.09 NG/ML (0.19-0.49) H 03/25/18 12:25 Urine Color Yellow (YELLOW) 03/22/18 19:16 Urine Clarity Turbid (Clear) 03/22/18 19:16 Urine pH 5.0 (5.0-8.0) 03/22/18 19:16 Ur Specific [place] 1.014 (1.003-1.030) 03/22/18 19:16 Urine Protein 100 mg/dL (NEGATIVE) 03/22/18 19:16 Urine Glucose (UA) Neg mg/dL (NEGATIVE) 03/22/18 19:16 Urine Ketones Negative mg/dL (NEGATIVE) 03/22/18 19:16 Urine Blood Moderate (NEGATIVE) 03/22/18 19:16 Urine Nitrate Positive (NEGATIVE) H 03/22/18 19:16 Urine Bilirubin Negative (NEGATIVE) 03/22/18 19:16 Urine Urobilinogen 0.2-1.0 mg/dL (0.2-1.0) 03/22/18 19:16 Ur Leukocyte Esterase Large Roxy/uL (Negative) 03/22/18 19:16 Urine RBC (Auto) 24 /hpf (0-3) H 03/22/18 19:16 Urine WBC Clumps (Auto) Mod /hpf (NONE) H 03/22/18 19:16 Urine Microscopic WBC 1010 /hpf (0-5) H 03/22/18 19:16 Ur Squamous Epith Cells < 1 /hpf (0-5) 03/22/18 19:16 Urine Bacteria Occ (<OCC) H 03/22/18 19:16 Hyaline Casts 0-2 /hpf (0-2) 03/22/18 19:16 Influenza Typ A,B (EIA) Negative for flu a/b (NEGATIVE) 03/22/18 19:16 Blood Type O POSITIVE 03/22/18 19:16 Antibody Screen Negative 03/22/18 19:16 BBK History Checked Patient has bt 03/22/18 19:16 - Hospital Course Hospital Course: 82 year old Male with PMHx of HTN, HLD, AV valve replacement, pacemaker implantation ( on Feb 2017), admitted for complicated Urinary Tract Infection. Pt presented with 2 day history of urinary frequency and Dysuria. Pt was diagnosed with complicated UTI and was initiated on IV Daptomycin and IV Meropenem as per ID. Initial blood Culture and Urine culture was positive for E.Coli-pansensitive. --Echocardiogram on 03/25/18: LVEF 60-65%, grade-I abnormal relaxation pattern, bioprostetic aortic valve with NO vegetations. No evidence of any vegetations. --Renal US ordered by ID on 03/26/18 was unremarkable. --Blood culture on 03/24/18 and 03/25/18 are preliminary negative. --PICC line was placed today 03/26/18. --Today, after discharge disposition options discussion, pt has decided to return to hospital every day for IV antibiotics administration. Pt lives alone, and his son lives [address] in same building. As per ID recommendations, pt can be discharged on IV Ceftraxone 2gr daily. Pt was seen and examined by bedside today, pt reports feeling well, afebrile, tolerating PO. Pt denies fever, headache, chest pain, SOB, abdominal pain, N/V/D. - Date & Time of H&P Date of H&P: 03/22/18 Time of H&P: 22:26 Discharge Exam - Head Exam Head Exam: ATRAUMATIC, NORMAL INSPECTION, NORMOCEPHALIC - Eye Exam Eye Exam: EOMI, Normal appearance - ENT Exam ENT Exam: Mucous Membranes Moist - Neck Exam Neck exam: Full Rom, Normal Inspection - Respiratory Exam Respiratory Exam: NORMAL BREATHING PATTERN. absent: Rales, Rhonchi, Wheezes, Respiratory Distress - Cardiovascular Exam Cardiovascular Exam: REGULAR RHYTHM, +S1, +S2 - GI/Abdominal Exam GI & Abdominal Exam: Normal Bowel Sounds, Soft. absent: Guarding, Rebound, Rigid, Tenderness - Back Exam Back exam: absent: CVA tenderness (L), CVA tenderness (R) - Neurological Exam Neurological exam: Alert, Oriented x3 Discharge Plan - Follow Up Plan Condition: FAIR Disposition: HOME/ ROUTINE Instructions: Urinary Tract Infection, Adult (DC), Peripherally-Inserted Central Catheter (DC) Additional Instructions: --Return to hospital every day for IV antibiotic daily. Referrals: Isael Flynn MD [Staff Provider] - Mustapha Flood MD [Medical Doctor] -
--- NOTE | 2018-03-26 11:49 | CARD ---
APPROVED REPORT Date of service: 03/26/2018 EXAM: Two-dimensional and M-mode echocardiogram with Doppler and color Doppler. Other Information Quality : AverageRhythm : Pacemaker INDICATION Infection:Subacute bacterial endocarditis 2D DIMENSIONS IVSd2.23 (0.7-1.1cm)LVDd3.84 (3.9-5.9cm) PWd1.42 (0.7-1.1cm)IVSs1.92 (0.8-1.2cm) LVDs3.19 (2.5-4.0cm)FS (%) 16.8 % PWs1.54 (0.8-1.2cm) M-Mode DIMENSIONS Left Atrium (MM)4.60 (2.5-4.0cm)IVSd1.79 (0.7-1.1cm) Aortic Root2.51 (2.2-3.7cm)LVDd4.63 (4.0-5.6cm) PWd1.26 (0.7-1.1cm)IVSs1.92 cm FS (%) 37 %LVDs2.91 (2.0-3.8cm) PWs1.72 cm Aortic Valve AoV Peak Zougxkbw880.0cm/sAoV VTI65.7cmAO Peak GR.38mmHg LVOT Peak Avqghriq208.1cm/sLVOT VTI23.86cmAO Mean GR.25mmHg Mitral Valve MV E Jnsswujo98.8cm/sMV DECEL SOXY515ehSA A Oonwaiqv87.3cm/s MV NWH77wsC/A ratio0.9MVA (PHT)3.16cm2 TDI E/Lateral E'0.0E/Medial E'0.0 LEFT VENTRICLE The left ventricle is normal size. There is normal left ventricular wall thickness. Left ventricle systolic function is normal. LVEF is 60-65%. There is normal LV segmental wall motion. Transmitral Doppler flow pattern is Grade I-abnormal relaxation pattern. RIGHT VENTRICLE The right ventricle is normal size. There is normal right ventricular wall thickness. The right ventricular systolic function is normal. Pacing lead was observed in the RV No vegetations were seen on the lead. ATRIA The left atrium size is normal. The right atrium size is normal. AORTIC VALVE Bioprosthesis seen at aortiv position. No aortic regurgitation is present. A mild-moderate gradient of 38 mm Hg was seen at the aortic valve. There were no vegetations seen on the aortiv bioprosthesis. There is a bioprosthetic aortic valve. MITRAL VALVE The mitral valve is normal in structure. There is no evidence of mitral valve prolapse. There is no mitral valve stenosis. Mitral regurgitation is mild. TRICUSPID VALVE The tricuspid valve is normal in structure. There is no tricuspid valve regurgitation noted. PULMONIC VALVE The pulmonary valve is normal in structure. There is no pulmonic valvular regurgitation. GREAT VESSELS The aortic root is normal in size. Due to poor image quality, the IVC could not be assessed. PERICARDIAL EFFUSION The pericardium appears normal. <Conclusion> The left ventricle is normal size. There is normal left ventricular wall thickness. There is normal LV segmental wall motion. Left ventricle systolic function is normal. LVEF is 60-65%. Transmitral Doppler flow pattern is Grade I-abnormal relaxation pattern. There is a bioprosthetic aortic valve. A mild-moderate gradient of 38 mm Hg was seen at the aortic valve. There were no vegetations seen on the aortiv bioprosthesis. No vegetations were seen on the lead. No evidence of vegetations seen on this TTE.
--- NOTE | 2018-03-26 12:46 | CP.PCM.PN ---
Subjective - Date & Time of Evaluation Date of Evaluation: 03/26/18 Time of Evaluation: 10:50 - Subjective Subjective: The patient is comfortable and did not have any fever or chills last night. His vital signs are stable. Echocardiogram does not show any evidence of vegetations on bioprosthesis at aortic position or pacing lead in the right ventricle. Since absence of vegetations is not going to private branch exchange repairer strategy of intravenous antibiotics for the next 4 weeks, a DEMETRIO has been avoided. The patient had a PICC line inserted this morning. Daily IV antibiotics would be arranged for the next 4 weeks. The patient will return home tomorrow after approval from the insurance company for his extended IV antibiotic therapy (as an outpatient) is obtained. Objective - Vital Signs/Intake and Output Vital Signs (last 24 hours): Temp Pulse Resp BP Pulse Ox 98.0 F 73 18 126/55 L 96 03/26/18 09:21 03/26/18 11:07 03/26/18 09:21 03/26/18 11:07 03/26/18 08:43 - Medications Medications: Current Medications Acetaminophen (Tylenol 325mg Tab) 650 mg PO Q4 PRN PRN Reason: Fever >100.4 F Last Admin: 03/24/18 01:31 Dose: 650 mg Amlodipine Besylate (Norvasc) 5 mg PO DAILY [facility] Last Admin: 03/26/18 11:06 Dose: 5 mg Atorvastatin Calcium (Lipitor) 40 mg PO DAILY [facility] Last Admin: 03/26/18 11:04 Dose: 40 mg Enoxaparin Sodium (Lovenox) 40 mg SC DAILY [facility]; Protocol Last Admin: 03/26/18 11:05 Dose: 40 mg Ferrous Sulfate (Feosol) 325 mg PO BID [facility] Folic Acid (Folic Acid) 1 mg PO DAILY [facility] Last Admin: 03/26/18 11:04 Dose: 1 mg Guaifenesin/Dextromethorphan (Robitussin Dm) 10 ml PO Q6 PRN PRN Reason: Cough Last Admin: 03/25/18 16:24 Dose: 10 ml Daptomycin 540 mg/ Sodium (Chloride) 100 mls @ 100 mls/hr IV Q24H [facility]; Protocol Stop: 03/28/18 14:46 Last Admin: 03/25/18 14:00 Dose: 100 mls/hr Meropenem 1 gm/ Sodium (Chloride) 100 mls @ 100 mls/hr IVPB Q8 [facility]; Protocol Last Admin: 03/26/18 11:05 Dose: 100 mls/hr Metoprolol Succinate (Toprol Xl) 25 mg PO DAILY [facility] Last Admin: 03/26/18 11:07 Dose: 25 mg Ondansetron HCl (Zofran Inj) 4 mg IVP Q6 PRN PRN Reason: Nausea/Vomiting Tamsulosin HCl (Flomax) 0.4 mg PO DAILY [facility] Last Admin: 03/26/18 11:04 Dose: 0.4 mg - Labs Labs: 03/25/18 05:30 03/24/18 06:50 PT 18.4 Seconds (9.8-13.1) H 03/22/18 19:16 INR 1.6 03/22/18 19:16 APTT 29.2 Seconds (25.6-37.1) 03/22/18 19:16
[2018-03-26 13:42] LABS: BASO % 0.8 % (0.0-2.0); EOS # 0.1 K/uL (0.0-0.7); HEMOGLOBIN 11.1 g/dL (12.0-18.0); LYMPH # 0.9 K/uL (1.0-4.3); LYMPH % 17.9 % (20.0-40.0); MEAN CELL VOLUME 76.2 fl (80.0-94.0); MEAN CORPUSCULAR HEMOGLOBIN 23.8 pg (27.0-31.0); MEAN CORPUSCULAR HGB CONC 31.3 g/dL (33.0-37.0); MEAN PLATELET VOLUME 11.1 fl (7.2-11.7); MONO # 0.5 K/uL (0.0-0.8); MONO % 10.3 % (0.0-10.0); NEUT # 3.3 K/uL (1.8-7.0); RBC 4.64 Mil/uL (4.40-5.90); RED CELL DISTRIBUTION WIDTH 15.9 % (11.5-14.5); WHITE BLOOD COUNT 4.8 K/uL (4.8-10.8)
[2018-03-26 14:22] LABS: BLOOD UREA NITROGEN 16 mg/dl (9-20); CALCIUM 9.4 mg/dL (8.4-10.2); GFR NON-AFRICAN AMERICAN > 60
[2018-03-26] MEDS: guaiFENesin DM 200 mg-20 mg/10 ml UD PO PRN (15:36)
[2018-03-26 15:59] VITALS: BP 132/60; PULSE 68; RESP 20; TEMP 97.7; O2SAT 94
--- NOTE | 2018-03-26 16:25 | CP.PCM.PN ---
Subjective - Date & Time of Evaluation Date of Evaluation: 03/26/18 Time of Evaluation: 16:22 - Subjective Subjective: i d note sdcheduled for discharge will receive 4 to 6 weeks of iv ceftriaxone 2gm daily Objective - Vital Signs/Intake and Output Vital Signs (last 24 hours): Temp Pulse Resp BP Pulse Ox 97.7 F 68 20 132/60 94 L 03/26/18 15:59 03/26/18 15:59 03/26/18 15:59 03/26/18 15:59 03/26/18 15:59 - Medications Medications: Current Medications Acetaminophen (Tylenol 325mg Tab) 650 mg PO Q4 PRN PRN Reason: Fever >100.4 F Last Admin: 03/24/18 01:31 Dose: 650 mg Amlodipine Besylate (Norvasc) 5 mg PO DAILY [facility] Last Admin: 03/26/18 11:06 Dose: 5 mg Atorvastatin Calcium (Lipitor) 40 mg PO DAILY [facility] Last Admin: 03/26/18 11:04 Dose: 40 mg Enoxaparin Sodium (Lovenox) 40 mg SC DAILY [facility]; Protocol Last Admin: 03/26/18 11:05 Dose: 40 mg Ferrous Sulfate (Feosol) 325 mg PO BID [facility] Folic Acid (Folic Acid) 1 mg PO DAILY [facility] Last Admin: 03/26/18 11:04 Dose: 1 mg Guaifenesin/Dextromethorphan (Robitussin Dm) 10 ml PO Q6 PRN PRN Reason: Cough Last Admin: 03/26/18 15:36 Dose: 10 ml Daptomycin 540 mg/ Sodium (Chloride) 100 mls @ 100 mls/hr IV Q24H [facility]; Protocol Stop: 03/28/18 14:46 Last Admin: 03/26/18 15:34 Dose: 100 mls/hr Meropenem 1 gm/ Sodium (Chloride) 100 mls @ 100 mls/hr IVPB Q8 [facility]; Protocol Last Admin: 03/26/18 11:05 Dose: 100 mls/hr Metoprolol Succinate (Toprol Xl) 25 mg PO DAILY [facility] Last Admin: 03/26/18 11:07 Dose: 25 mg Ondansetron HCl (Zofran Inj) 4 mg IVP Q6 PRN PRN Reason: Nausea/Vomiting Tamsulosin HCl (Flomax) 0.4 mg PO DAILY [facility] Last Admin: 03/26/18 11:04 Dose: 0.4 mg - Labs Labs: 03/26/18 13:10 03/26/18 13:10 PT 18.4 Seconds (9.8-13.1) H 03/22/18 19:16 INR 1.6 03/22/18 19:16 APTT 29.2 Seconds (25.6-37.1) 03/22/18 19:16
--- NOTE | 2018-03-28 12:46 | VASCULAR ---
PROCEDURE: Date of procedure: 03/26/2018 Procedure: 1. Placement of a right arm PICC with ultrasound and fluoroscopic guidance, CPT 13008 2. PICC tip confirmation with spot radiograph and is in the superior vena cava Medications: 1 percent lidocaine Total Fluoro time: 3.7 Seconds Radiation: 0.76 MGy EBL: 2 cc HISTORY: Infection requiring long-term IV antibiotics TECHNIQUE: Following informed consent and procedure time-out, the patient was placed supine on the interventional table and the right arm prepped and draped in the usual sterile fashion. Ultrasound showed a patent and compressible right basilic vein. After the skin was anesthetized with lidocaine, the basilic vein was accessed with micro micropuncture technique using ultrasound guidance. A guidewire was then advanced under fluoroscopic guidance into the superior vena cava. An image documenting ultrasound guidance for vascular access was permanently saved. The length of the single-lumen 4 Bulgarian PICC was trimmed to 37 centimeters and advanced through a peel-away sheath. The PICC was position with tip of PICC confirm a spot radiograph the superior vena cava. The PICC was secured to the patient's skin. The PICC was flushed. A biopatch and sterile dressing was applied. IMPRESSION: Placement of a single-lumen 4 Bulgarian PICC trimmed to 37 centimeters via right basilic vein. The tip of the PICC is confirmed with spot radiograph and is in the superior vena cava.
== END 2018-03-26 18:45 | disposition home or self-care (01) | DRG 872 ==
LOC: H.ER 17:36 → H.ERHOLD 21:06 → H.MEDSURG1 22:54 → OBSVTOIN 03-23 20:07 → H.MEDSURG1 03-25 10:01
PROVIDERS: ADMIT Internal Medicine; ATTEND Internal Medicine
PROC: 02HV33Z Insertion of Infusion Device into Superior Vena Cava, Percutaneous Approach (ICD-10-PCS; principal; 2018-03-26)
PROC: B548ZZA Ultrasonography of Superior Vena Cava, Guidance (ICD-10-PCS; 2018-03-26)
PROC: 3E04329 Introduction of Other Anti-infective into Central Vein, Percutaneous Approach (ICD-10-PCS; 2018-03-26)
PROC: B518ZZA Fluoroscopy of Superior Vena Cava, Guidance (ICD-10-PCS; 2018-03-26)
DX: A41.51 Sepsis due to Escherichia coli [E. coli] (principal); N39.0 Urinary tract infection, site not specified; D50.9 Iron deficiency anemia, unspecified; D63.8 Anemia in other chronic diseases classified elsewhere; I11.0 Hypertensive heart disease with heart failure; I25.10 Atherosclerotic heart disease of native coronary artery without angina pectoris; I50.9 Heart failure, unspecified; J44.9 Chronic obstructive pulmonary disease, unspecified; E78.5 Hyperlipidemia, unspecified; N40.0 Benign prostatic hyperplasia without lower urinary tract symptoms; Z95.0 Presence of cardiac pacemaker; Z95.2 Presence of prosthetic heart valve; Z95.1 Presence of aortocoronary bypass graft; Z87.891 Personal history of nicotine dependence; Z90.49 Acquired absence of other specified parts of digestive tract